=== PATIENT | female | born 1945 | race Caucasian/White ===

== ENCOUNTER 2017-04-25 07:59 | Emergency (ER) | payer MEDICARE, BC ==
[2011-10-17 09:16] VITALS: BMI 42.2
[2017-04-25 08:43] LABS: BASOPHILS 0.3 % (0-2); EOSINOPHILS 0.5 % (0-7); HEMOGLOBIN 12.7 g/dL (12-16); IMMATURE GRANULOCYTES 0.3 % (0-5); LYMPHOCYTES 10.8 % (15-50); MCH 31.4 pg (26.0-34.0); MCHC 31.8 g/dL (31.0-37.0); MEAN PLATELET VOLUME 12.4 fL (7.4-10.4); MONOCYTES 15.6 % (2-11); NEUTROPHILS 72.5 % (40-80); PLATELET COUNT 113 10x3/uL (130-400); RBC 4.04 10x6/uL (4.00-5.40); RDW 13.4 % (11.5-14.5)
[2017-04-25 09:01] LABS: ALKALINE PHOSPHATASE 84 U/L (46-116); ALT (SGPT) 22 U/L (10-68); BILIRUBIN - TOTAL 0.58 mg/dL (0.2-1.3); CALC OSMOLALITY 270 mosm/kg (275-300); CALCIUM 8.9 mg/dL (8.5-10.1); CARBON DIOXIDE 32.8 mmol/L (21.0-32.0); CHLORIDE - SERUM 99 mmol/L (98-107); CREATININE - SERUM 0.5 mg/dL (0.6-1.3); GLUCOSE 103 mg/dL (74-106); POTASSIUM - SERUM 3.7 mmol/L (3.5-5.1); SODIUM 135 mmol/L (136-145); UREA NITROGEN 14 mg/dL (7-18); eGFR NON AFRICAN AMERICAN > 90 mL/min (90-120)
[2017-04-25 09:02] LABS: TROPONIN-I < 0.017 ng/mL (0.000-0.060)
== END 2017-04-25 13:34 | disposition home or self-care (01) ==
LOC: D.ER 07:59
PROVIDERS: Emergency Medicine
DX: J44.1 Chronic obstructive pulmonary disease with (acute) exacerbation (principal); F17.200 Nicotine dependence, unspecified, uncomplicated

== ENCOUNTER 2017-05-26 14:52 | Emergency (ER) | payer MEDICARE, BC ==
[2011-10-17 09:16] VITALS: BMI 42.2
[2017-05-26 15:30] LABS: BASOPHILS 0.4 % (0-2); EOSINOPHILS 2.9 % (0-7); HEMATOCRIT 39.2 % (36.0-48.0); HEMOGLOBIN 12.3 g/dL (12-16); IMMATURE GRANULOCYTES 0.2 % (0-5); LYMPHOCYTES 24.8 % (15-50); MCH 31.1 pg (26.0-34.0); MCHC 31.4 g/dL (31.0-37.0); MCV 99.2 fL (80.0-100.0); MEAN PLATELET VOLUME 13.4 fL (7.4-10.4); MONOCYTES 9.4 % (2-11); NEUTROPHILS 62.3 % (40-80); PLATELET COUNT 151 10x3/uL (130-400); RBC 3.95 10x6/uL (4.00-5.40); RDW 14.2 % (11.5-14.5); WBC 5.6 10x3/uL (4.8-10.8)
[2017-05-26 15:33] LABS: APPEARANCE CLEAR (CLEAR); COLOR DK YELLOW (YELLOW); GLUCOSE NEGATIVE (NEGATIVE); KETONE NEGATIVE (NEGATIVE); NITRITE NEGATIVE (NEGATIVE); PROTEIN NEGATIVE (NEGATIVE)
[2017-05-26 15:34] LABS: BILIRUBIN NEGATIVE (NEGATIVE)
[2017-05-26 15:37] LABS: MUCUS <1+ /lpf (NONE SEEN); RED CELLS - URINE 0-5 /hpf (0-5); WHITE CELLS - URINE OCC /hpf (0-5)
[2017-05-26 15:39] LABS: ALBUMIN 2.9 g/dL (3.4-5.0); ALKALINE PHOSPHATASE 85 U/L (46-116); ALT (SGPT) 19 U/L (10-68); BILIRUBIN - TOTAL 0.71 mg/dL (0.2-1.3); CALC OSMOLALITY 277 mosm/kg (275-300); CALCIUM 9.3 mg/dL (8.5-10.1); CARBON DIOXIDE 31.1 mmol/L (21.0-32.0); CHLORIDE - SERUM 100 mmol/L (98-107); CREATININE - SERUM 0.6 mg/dL (0.6-1.3); GLUCOSE 109 mg/dL (74-106); POTASSIUM - SERUM 3.8 mmol/L (3.5-5.1); PROTEIN - SERUM 7.6 g/dL (6.4-8.2); SODIUM 138 mmol/L (136-145); UREA NITROGEN 15 mg/dL (7-18); eGFR NON AFRICAN AMERICAN > 90 mL/min (90-120)
[2017-05-26 15:47] LABS: AMYLASE - SERUM 60 U/L (25-115); LIPASE 101 U/L (73-393)
[2017-05-26 15:51] LABS: TROPONIN-I < 0.017 ng/mL (0.000-0.060)
== END 2017-05-26 17:50 | disposition home or self-care (01) ==
LOC: D.ER 14:52
PROVIDERS: Family Medicine
DX: K57.90 Diverticulosis of intestine, part unspecified, without perforation or abscess without bleeding (principal); K21.9 Gastro-esophageal reflux disease without esophagitis; J44.9 Chronic obstructive pulmonary disease, unspecified; F17.200 Nicotine dependence, unspecified, uncomplicated

== ENCOUNTER 2017-07-02 14:39 | Emergency (ER) | payer MEDICARE, BC ==
[2011-10-17 09:16] VITALS: BMI 42.2
[2017-07-02 17:54] LABS: BASOPHILS 0.4 % (0-2); EOSINOPHILS 1.8 % (0-7); HEMATOCRIT 41.2 % (36.0-48.0); HEMOGLOBIN 13.1 g/dL (12-16); LYMPHOCYTES 25.1 % (15-50); MCH 31.8 pg (26.0-34.0); MCHC 31.8 g/dL (31.0-37.0); MEAN PLATELET VOLUME 13.1 fL (7.4-10.4); MONOCYTES 6.6 % (2-11); NEUTROPHILS 66.1 % (40-80); PLATELET COUNT 152 10x3/uL (130-400); RBC 4.12 10x6/uL (4.00-5.40); RDW 13.9 % (11.5-14.5); WBC 5.4 10x3/uL (4.8-10.8)
[2017-07-02 18:14] LABS: INR 0.92 (0.85-1.17)
[2017-07-02 18:30] LABS: ALBUMIN 3.1 g/dL (3.4-5.0); ALKALINE PHOSPHATASE 87 U/L (46-116); ALT (SGPT) 17 U/L (10-68); BILIRUBIN - TOTAL 0.71 mg/dL (0.2-1.3); CALC OSMOLALITY 259 mosm/kg (275-300); CALCIUM 9.2 mg/dL (8.5-10.1); CARBON DIOXIDE 31.9 mmol/L (21.0-32.0); CHLORIDE - SERUM 106 mmol/L (98-107); CREATININE - SERUM 0.5 mg/dL (0.6-1.3); GLUCOSE 93 mg/dL (74-106); POTASSIUM - SERUM 3.5 mmol/L (3.5-5.1); PROTEIN - SERUM 7.6 g/dL (6.4-8.2); SODIUM 130 mmol/L (136-145); UREA NITROGEN 11 mg/dL (7-18); eGFR NON AFRICAN AMERICAN > 90 mL/min (90-120)
[2017-07-02 18:41] LABS: CREATINE KINASE 54 UL (21-215); MAGNESIUM - SERUM 1.8 mg/dL (1.8-2.4); PRO BNP 328 pg/mL (0-125); TROPONIN-I < 0.017 ng/mL (0.000-0.060)
[2017-07-02 19:40] LABS: APPEARANCE CLEAR (CLEAR); BILIRUBIN NEGATIVE (NEGATIVE); COLOR YELLOW (YELLOW); GLUCOSE NEGATIVE (NEGATIVE); KETONE NEGATIVE (NEGATIVE); NITRITE NEGATIVE (NEGATIVE); PROTEIN NEGATIVE (NEGATIVE); UROBILINOGEN NORMAL (NORMAL)
== END 2017-07-02 21:21 | disposition home or self-care (01) ==
LOC: D.ER 14:39
PROVIDERS: Nurse Practitioner Family
DX: B34.9 Viral infection, unspecified (principal); J11.1 Influenza due to unidentified influenza virus with other respiratory manifestations; K21.9 Gastro-esophageal reflux disease without esophagitis; J44.9 Chronic obstructive pulmonary disease, unspecified

== ENCOUNTER 2017-07-07 19:13 | Emergency (ER) | payer MEDICARE, BC ==
[2011-10-17 09:16] VITALS: BMI 42.2
[2017-07-07 21:02] LABS: BASOPHILS 0.9 % (0-2); EOSINOPHILS 3.4 % (0-7); HEMATOCRIT 41.4 % (36.0-48.0); HEMOGLOBIN 13.1 g/dL (12-16); LYMPHOCYTES 25.9 % (15-50); MCH 31.7 pg (26.0-34.0); MCHC 31.6 g/dL (31.0-37.0); MCV 100.2 fL (80.0-100.0); MEAN PLATELET VOLUME 12.7 fL (7.4-10.4); NEUTROPHILS 61.8 % (40-80); PLATELET COUNT 164 10x3/uL (130-400); RBC 4.13 10x6/uL (4.00-5.40); RDW 13.9 % (11.5-14.5); WBC 5.5 10x3/uL (4.8-10.8)
[2017-07-07 21:17] LABS: ALBUMIN 3.1 g/dL (3.4-5.0); ALKALINE PHOSPHATASE 89 U/L (46-116); ALT (SGPT) 19 U/L (10-68); AMYLASE - SERUM 63 U/L (25-115); BILIRUBIN - TOTAL 0.55 mg/dL (0.2-1.3); CALC OSMOLALITY 276 mosm/kg (275-300); CALCIUM 8.9 mg/dL (8.5-10.1); CARBON DIOXIDE 31.3 mmol/L (21.0-32.0); CHLORIDE - SERUM 102 mmol/L (98-107); CREATININE - SERUM 0.7 mg/dL (0.6-1.3); GLUCOSE 99 mg/dL (74-106); LIPASE 108 U/L (73-393); POTASSIUM - SERUM 4.1 mmol/L (3.5-5.1); PROTEIN - SERUM 7.6 g/dL (6.4-8.2); SODIUM 139 mmol/L (136-145); UREA NITROGEN 9 mg/dL (7-18); eGFR NON AFRICAN AMERICAN 87 mL/min (90-120)
== END 2017-07-07 22:15 | disposition home or self-care (01) ==
LOC: D.ER 19:13
PROVIDERS: Family Medicine
DX: R10.9 Unspecified abdominal pain (principal); R14.0 Abdominal distension (gaseous); R14.2 Eructation; K59.00 Constipation, unspecified; J44.9 Chronic obstructive pulmonary disease, unspecified; F17.200 Nicotine dependence, unspecified, uncomplicated; K21.9 Gastro-esophageal reflux disease without esophagitis

== ENCOUNTER 2017-07-12 22:46 | Inpatient (IN) | payer MEDICARE, BC ==
[~2017-07-12] VITALS: Ht 160 cm; Wt 90.7 kg
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
[2017-07-12 23:57] LABS: BASOPHILS 0.8 % (0-2); EOSINOPHILS 3.1 % (0-7); HEMATOCRIT 40.1 % (36.0-48.0); IMMATURE GRANULOCYTES 0.3 % (0-5); MCHC 32.4 g/dL (31.0-37.0); MCV 98.8 fL (80.0-100.0); MEAN PLATELET VOLUME 13.5 fL (7.4-10.4); MONOCYTES 8.8 % (2-11); PLATELET COUNT 104 10x3/uL (130-400); RBC 4.06 10x6/uL (4.00-5.40); RDW 13.6 % (11.5-14.5); WBC 6.1 10x3/uL (4.8-10.8)
[2017-07-13 00:05] LABS: APPEARANCE CLEAR (CLEAR); BILIRUBIN NEGATIVE (NEGATIVE); COLOR YELLOW (YELLOW); GLUCOSE NEGATIVE (NEGATIVE); KETONE NEGATIVE (NEGATIVE); NITRITE NEGATIVE (NEGATIVE); PROTEIN NEGATIVE (NEGATIVE); UROBILINOGEN NORMAL (NORMAL)
[2017-07-13 00:07] LABS: APTT 24.8 SECONDS (22.8-39.4); INR 0.95 (0.85-1.17); PROTIME 12.3 SECONDS (11.6-15.0)
[2017-07-13 00:08] LABS: D-DIMER-QUANTITATIVE 2.76 ug/mLFEU (0.20-0.54)
[2017-07-13 00:20] LABS: ALKALINE PHOSPHATASE 78 U/L (46-116); ALT (SGPT) 20 U/L (10-68); CALC OSMOLALITY 278 mosm/kg (275-300); CARBON DIOXIDE 29.8 mmol/L (21.0-32.0); CHLORIDE - SERUM 102 mmol/L (98-107); CREATININE - SERUM 0.4 mg/dL (0.6-1.3); GLUCOSE 98 mg/dL (74-106); POTASSIUM - SERUM 4.2 mmol/L (3.5-5.1); PROTEIN - SERUM 6.7 g/dL (6.4-8.2); SODIUM 140 mmol/L (136-145); UREA NITROGEN 12 mg/dL (7-18); eGFR NON AFRICAN AMERICAN > 90 mL/min (90-120)
[2017-07-13 00:22] LABS: AMYLASE - SERUM 54 U/L (25-115); CKMB 0.8 U/L (0.0-3.6); CREATINE KINASE 99 UL (21-215); LIPASE 96 U/L (73-393); PRO BNP 316 pg/mL (0-125); TROPONIN-I 0.021 ng/mL (0.000-0.060)
[2017-07-13 03:49] LABS: CKMB 1.1 U/L (0.0-3.6); CREATINE KINASE 103 UL (21-215); TROPONIN-I 0.022 ng/mL (0.000-0.060)
[2017-07-13 04:16] VITALS: BP 154/68; BMI 35.5
[2017-07-13 08:43] VITALS: BP 155/60
[2017-07-13 09:30] LABS: HELICOBACTER PYLORI IGG NEGATIVE (NEGATIVE)
[2017-07-13 09:47] LABS: CKMB 1.2 U/L (0.0-3.6); CREATINE KINASE 78 UL (21-215); TROPONIN-I 0.028 ng/mL (0.000-0.060)
[2017-07-13] MEDS ORDERED: FUROSEMIDE40 MG PO (10:24)
[2017-07-13] MEDS ORDERED: OMEPRAZOLE40 MG PO (10:25)
[2017-07-13] MEDS ORDERED: K-TAB10 MEQ PO (10:25)
[2017-07-13] MEDS ORDERED: PROAIR HFA8.5 GM INH (10:26)
[2017-07-13] MEDS ORDERED: MIRALAX527 GM PO (10:26)
[2017-07-13] MEDS ORDERED: CITRACAL + D E1 EACH PO (10:26)
[2017-07-13] MEDS ORDERED: CRANBERRY 400 M1 TA1 PO (10:27)
[2017-07-13] MEDS ORDERED: MULTIPLE VITAMI1 TA1 PO (10:27)
[2017-07-13] MEDS ORDERED: PROBIOTIC250 MG PO (10:27)
[2017-07-13] MEDS ORDERED: BAYER ASPIRIN325 MG PO (10:28)
[2017-07-13] MEDS ORDERED: CALCIUM 500 + D1 TAB PO (10:28)
[2017-07-13] MEDS ORDERED: STOOL SOFTENER100 M1 PO (10:28)
[2017-07-13 12:46] VITALS: BP 151/83
[2017-07-13 13:58] VITALS: Ht 160 cm; Wt 90.7 kg
[2017-07-13 15:42] LABS: CREATINE KINASE 69 UL (21-215)
[2017-07-13 15:45] LABS: TROPONIN-I < 0.017 ng/mL (0.000-0.060)
[2017-07-13 16:26] VITALS: BP 126/45; BP 151/83
[2017-07-13 20:00] VITALS: BP 123/36
[2017-07-14 04:00] VITALS: BP 136/52
[2017-07-14 04:54] LABS: BASOPHILS 0 % (0-2); EOSINOPHILS 0 % (0-7); HEMATOCRIT 37.9 % (36.0-48.0); HEMOGLOBIN 11.8 g/dL (12-16); LYMPHOCYTES 11.6 % (15-50); MCH 30.8 pg (26.0-34.0); MCHC 31.1 g/dL (31.0-37.0); MEAN PLATELET VOLUME 14.1 fL (7.4-10.4); MONOCYTES 1.5 % (2-11); NEUTROPHILS 86.9 % (40-80); PLATELET COUNT 121 10x3/uL (130-400); RBC 3.83 10x6/uL (4.00-5.40); RDW 13.9 % (11.5-14.5)
[2017-07-14 04:55] LABS: WBC 3.3 10x3/uL (4.8-10.8)
[2017-07-14 05:13] LABS: ALBUMIN 2.7 g/dL (3.4-5.0); ALKALINE PHOSPHATASE 72 U/L (46-116); ALT (SGPT) 16 U/L (10-68); BILIRUBIN - TOTAL 0.64 mg/dL (0.2-1.3); CALCIUM 8.7 mg/dL (8.5-10.1); CARBON DIOXIDE 31.4 mmol/L (21.0-32.0); CHLORIDE - SERUM 104 mmol/L (98-107); CHOL - HDL RATIO 2.1 ratio (2.3-4.1); CHOLESTEROL, TOTAL 206 mg/dL (0-200); GLUCOSE 140 mg/dL (74-106); HDL CHOLESTEROL 99 mg/dL (32-96); LDL CHOLESTEROL 103 mg/dL (0-100); POTASSIUM - SERUM 4.4 mmol/L (3.5-5.1); PROTEIN - SERUM 6.6 g/dL (6.4-8.2); SODIUM 139 mmol/L (136-145); TRIGLYCERIDE 20 mg/dL (30-200)
[2017-07-14 05:15] LABS: CALC OSMOLALITY 282 mosm/kg (275-300); CREATININE - SERUM 0.6 mg/dL (0.6-1.3); UREA NITROGEN 21 mg/dL (7-18); eGFR NON AFRICAN AMERICAN > 90 mL/min (90-120)
[2017-07-14 10:51] VITALS: BP 138/51
[2017-07-14 15:10] VITALS: BP 155/52
[2017-07-14 21:57] VITALS: BP 154/62
[2017-07-15 00:57] VITALS: BP 146/56
[2017-07-15 06:45] LABS: BASOPHILS 0 % (0-2); EOSINOPHILS 0 % (0-7); HEMATOCRIT 36.7 % (36.0-48.0); HEMOGLOBIN 11.7 g/dL (12-16); IMMATURE GRANULOCYTES 0.2 % (0-5); LYMPHOCYTES 6.7 % (15-50); MCH 31.2 pg (26.0-34.0); MCHC 31.9 g/dL (31.0-37.0); MCV 97.9 fL (80.0-100.0); MEAN PLATELET VOLUME 13.9 fL (7.4-10.4); MONOCYTES 2.4 % (2-11); NEUTROPHILS 90.7 % (40-80); PLATELET COUNT 122 10x3/uL (130-400); RBC 3.75 10x6/uL (4.00-5.40); RDW 13.9 % (11.5-14.5); WBC 5.4 10x3/uL (4.8-10.8)
[2017-07-15 07:00] LABS: CALC OSMOLALITY 278 mosm/kg (275-300); CALCIUM 8.4 mg/dL (8.5-10.1); CARBON DIOXIDE 28.4 mmol/L (21.0-32.0); CHLORIDE - SERUM 103 mmol/L (98-107); CREATININE - SERUM 0.6 mg/dL (0.6-1.3); GLUCOSE 142 mg/dL (74-106); SODIUM 137 mmol/L (136-145); UREA NITROGEN 21 mg/dL (7-18); eGFR NON AFRICAN AMERICAN > 90 mL/min (90-120)
[2017-07-15 09:00] VITALS: BP 141/61
[2017-07-15 13:13] VITALS: BP 141/53
[2017-07-15 16:58] VITALS: BP 97/49
[2017-07-15 23:07] VITALS: BP 143/45
[2017-07-16 05:06] VITALS: BP 138/78
[2017-07-16 08:18] VITALS: BP 144/53
[2017-07-16 13:20] VITALS: BP 100/59; BP 139/54
[2017-07-16 16:47] VITALS: BP 142/61
[2017-07-16 20:00] VITALS: BP 114/57
[2017-07-17 04:00] VITALS: BP 144/64
[2017-07-17 08:39] VITALS: BP 107/71
[2017-07-17 13:36] VITALS: BP 146/58
[2017-07-17 16:07] VITALS: BP 109/67
[2017-07-17 20:00] VITALS: BP 140/52
[2017-07-18 04:00] VITALS: BP 139/55
[2017-07-18 09:11] VITALS: BP 106/78
[2017-07-18 12:46] VITALS: BP 153/55
[2017-07-18 16:46] VITALS: BP 165/63
[2017-07-18 20:00] VITALS: BP 147/62
[2017-07-19] VITALS: BP 141/61
[2017-07-19 04:00] VITALS: BP 167/70
[2017-07-19 08:43] LABS: BASOPHILS 0 % (0-2); EOSINOPHILS 0 % (0-7); HEMATOCRIT 42.2 % (36.0-48.0); HEMOGLOBIN 13.5 g/dL (12-16); IMMATURE GRANULOCYTES 0.2 % (0-5); LYMPHOCYTES 6.9 % (15-50); MCH 31.5 pg (26.0-34.0); MCV 98.4 fL (80.0-100.0); MEAN PLATELET VOLUME 12.9 fL (7.4-10.4); MONOCYTES 4.2 % (2-11); NEUTROPHILS 88.7 % (40-80); PLATELET COUNT 134 10x3/uL (130-400); RBC 4.29 10x6/uL (4.00-5.40); RDW 13.6 % (11.5-14.5); WBC 6.2 10x3/uL (4.8-10.8)
[2017-07-19 08:44] LABS: CALC OSMOLALITY 273 mosm/kg (275-300); CHLORIDE - SERUM 101 mmol/L (98-107); CREATININE - SERUM 0.7 mg/dL (0.6-1.3); GLUCOSE 118 mg/dL (74-106); POTASSIUM - SERUM 4.1 mmol/L (3.5-5.1); SODIUM 136 mmol/L (136-145); UREA NITROGEN 16 mg/dL (7-18); eGFR NON AFRICAN AMERICAN 87 mL/min (90-120)
[2017-07-19 08:48] VITALS: BP 173/119
[2017-07-19 10:13] VITALS: BMI 35.4
[2017-07-19 12:13] VITALS: BP 163/55
[2017-07-19 16:12] VITALS: BP 139/55
[2017-07-19 20:00] VITALS: BP 144/57
[2017-07-20] VITALS: BP 126/71
[2017-07-20 04:00] VITALS: BP 150/53
[2017-07-20 08:09] VITALS: BP 144/63
[2017-07-20 12:52] VITALS: BP 142/71
[2017-07-20 16:55] VITALS: BP 146/86
[2017-07-20 22:49] VITALS: BP 171/68
[2017-07-21 02:50] VITALS: BP 141/47
[2017-07-21 05:54] VITALS: BP 135/43
[2017-07-21 07:06] VITALS: BP 115/62
[2017-07-21 11:02] VITALS: BP 135/94
[2017-07-21] MEDS ORDERED: IPRAT-ALBUT 0.5-3 ML INH (11:53)
[2017-07-21] MEDS ORDERED: COREG 3.1253.125 MG PO (11:54)
[2017-07-21] MEDS ORDERED: SINGULAIR10 MG PO (11:54)
[2017-07-21] MEDS ORDERED: FLAGYL500 MG PO (11:56)
[2017-07-21] MEDS ORDERED: STERAPRED DS 1210 MG PO (11:58)
[2017-07-21] MEDS ORDERED: DIFLUCAN100 MG PO (11:59)
[2017-07-21] MEDS ORDERED: BREO ELLIPTA 21 EACH IH (12:05)
[2017-07-21 15:13] VITALS: BP 103/58
== END 2017-07-21 19:42 | disposition home or self-care (01) | DRG 192 ==
LOC: D.ER 22:46 → D.MS 07-13 03:38
PROVIDERS: Family Medicine
DX: J44.1 Chronic obstructive pulmonary disease with (acute) exacerbation (principal); K21.9 Gastro-esophageal reflux disease without esophagitis; K57.30 Diverticulosis of large intestine without perforation or abscess without bleeding; K59.00 Constipation, unspecified; M19.90 Unspecified osteoarthritis, unspecified site; Z88.1 Allergy status to other antibiotic agents; F17.200 Nicotine dependence, unspecified, uncomplicated

== ENCOUNTER 2017-08-31 01:37 | Inpatient (IN) | payer MEDICARE, BC ==
[~2017-08-31] VITALS: Ht 160 cm; Wt 88.5 kg
[2017-08-31] VITALS (7 sets, daily range): BP systolic 120–152; BP diastolic 44–88; Ht 160 cm; Wt 88.5 kg
--- NOTE | ~2017-08-31 | EC ---
PATIENT:RON ALBERTO DATE OF SERVICE: 08/31/17 SEX: F MEDICAL RECORD: [id number] DATE OF : 41 LOCATION:D.MS [place] AGE OF PATIENT: 71 ADMISSION DATE: 08/31/17 REFERRING PHYSICIAN: INTERPRETING PHYSICIAN: FELIPA SPENCER MD ECHOCARDIOGRAM REPORT ECHO CHARGES 4 ECHO COMPLETE Date: 09/01 CLINICAL DIAGNOSIS: CHF ECHOCARDIOGRAPHIC MEASUREMENTS (adult normal given) AC root (d.<3.7cm) 3.7 cm LV Septum d (<1.2 cm> 1.6 cm Valve Excursion 1.8 cm LV Septum (systole) 1.9 cm Left Atria (s.<4.0cm> 3.4 cm LVPW d(<1.2cm) 1.4 cm RV (d.<2.3cm) 4.9 cm LVPW (sytole) 1.9 cm LV diastole(<5.6CM) 5.7 cm MV E-F(>70mm/sec) cm LV systole 3.7 cm LVOT Diameter 2.2 cm MV exc.(>10mm) 1.4 cm Est.ejection fraction (50-75%) % DOPPLER: LVIT cm/sec A 105 cm/sec E 96.0 cm/sec LA cm/sec RVSP 34 mmHg LVOT 121 cm/sec AOP1/2T m/s Asc. Ao 159 cm/sec RVOT cm/sec RA cm/sec PA cm/sec AV Gradient Peak 10.06mmHg AV Mean 4.58 mmHg AV Area 3.0 cm MV Gradient Peak 4.37 mmHg MV Mean 2.34 mmHg MV Area cm COMMENTS: Slot Shift Manager: 2 NIC SHEA Associate: 4 Dr. Spencer TAPE# PACS Pericardial Effusion N DATE OF SERVICE: PROCEDURE: Transthoracic echocardiogram. FINDINGS: 1. Left ventricle has normal function, ejection fraction 60%. Mild left ventricular hypertrophy. Inflow characteristics consistent with diastolic dysfunction. 2. The left atrium is normal size, normal function. 3. The aortic valve is normal structure and function. ECHOCARDIOGRAM REPORT [id number] RON ALBERTO 4. The mitral valve is normal structure and function. 5. The tricuspid valve is normal structure and function. RVSP is mildly elevated at 30-35 mmHg. 6. The pericardium was normal. 7. The right ventricle is moderately dilated. 8. The right atrium is moderately dilated. 9. The pulmonic valve not well visualized, but by Doppler is normal. CONCLUSION: This is a normal echocardiogram for patient stated age. There is mild elevation in right ventricular systolic pressure. There is mild dilatation of right-sided structures. There is mild left ventricular hypertrophy. TRANSINT:[id number] Voice Confirmation ID: [id number] DOCUMENT ID: [id number] FELIPA SPENCER MD at 0942 CC: [id number] DICTATION DATE: 09/02/17 0727 AIRFIELD ENGINEER OFFICER: 09/02/17 0918 DIS IN 09/05/17 [facility] [address] [place] [address]
[~2017-08-31 01:37] MED LIST: BAYER ASPIRIN325 MG PO; BREO ELLIPTA 21 EACH IH; CALCIUM 500 + D1 TAB PO; CITRACAL + D E1 EACH PO; COREG 3.1253.125 MG PO; CRANBERRY 400 M1 TA1 PO; DIFLUCAN100 MG PO; FLAGYL500 MG PO; FUROSEMIDE40 MG PO; IPRAT-ALBUT 0.5-3 ML INH; K-TAB10 MEQ PO; MIRALAX527 GM PO; MULTIPLE VITAMI1 TA1 PO; OMEPRAZOLE40 MG PO; PROAIR HFA8.5 GM INH; PROBIOTIC250 MG PO; SINGULAIR10 MG PO; STERAPRED DS 1210 MG PO; STOOL SOFTENER100 M1 PO
[2017-08-31 02:20] LABS: BASOPHILS 0.4 % (0-2); EOSINOPHILS 1.1 % (0-7); HEMOGLOBIN 12.9 g/dL (12-16); IMMATURE GRANULOCYTES 0.2 % (0-5); LYMPHOCYTES 29.1 % (15-50); MCH 31.7 pg (26.0-34.0); MCHC 32.3 g/dL (31.0-37.0); MCV 98.3 fL (80.0-100.0); MEAN PLATELET VOLUME 12.9 fL (7.4-10.4); MONOCYTES 6.3 % (2-11); NEUTROPHILS 62.9 % (40-80); RBC 4.07 10x6/uL (4.00-5.40); RDW 13.7 % (11.5-14.5); WBC 5.5 10x3/uL (4.8-10.8)
[2017-08-31 02:21] LABS: PLATELET COUNT 103 10x3/uL (130-400)
[2017-08-31 02:33] LABS: ALBUMIN 2.8 g/dL (3.4-5.0); ALKALINE PHOSPHATASE 79 U/L (46-116); ALT (SGPT) 17 U/L (10-68); BILIRUBIN - TOTAL 0.49 mg/dL (0.2-1.3); CALC OSMOLALITY 281 mosm/kg (275-300); CALCIUM 8.5 mg/dL (8.5-10.1); CHLORIDE - SERUM 102 mmol/L (98-107); CREATININE - SERUM 0.6 mg/dL (0.6-1.3); GLUCOSE 108 mg/dL (74-106); POTASSIUM - SERUM 3.7 mmol/L (3.5-5.1); PROTEIN - SERUM 6.8 g/dL (6.4-8.2); SODIUM 140 mmol/L (136-145); UREA NITROGEN 17 mg/dL (7-18); eGFR NON AFRICAN AMERICAN > 90 mL/min (90-120)
[2017-08-31 02:46] LABS: CREATINE KINASE 56 UL (21-215); MAGNESIUM - SERUM 1.8 mg/dL (1.8-2.4); PRO BNP 312 pg/mL (0-125); TROPONIN-I 0.023 ng/mL (0.000-0.060)
[2017-08-31] MEDS ORDERED: FIBER THERAPY1368 GM PO (04:34)
[2017-09-01 04:29] VITALS: BP 125/51
[2017-09-01 05:05] LABS: BASOPHILS 0 % (0-2); EOSINOPHILS 0 % (0-7); HEMATOCRIT 35.4 % (36.0-48.0); HEMOGLOBIN 11.3 g/dL (12-16); LYMPHOCYTES 14.1 % (15-50); MCH 31.2 pg (26.0-34.0); MCHC 31.9 g/dL (31.0-37.0); MCV 97.8 fL (80.0-100.0); MEAN PLATELET VOLUME 13.7 fL (7.4-10.4); MONOCYTES 1.4 % (2-11); NEUTROPHILS 84.5 % (40-80); PLATELET COUNT 103 10x3/uL (130-400); RBC 3.62 10x6/uL (4.00-5.40); RDW 13.9 % (11.5-14.5)
[2017-09-01 05:16] LABS: CALC OSMOLALITY 282 mosm/kg (275-300); CALCIUM 8.1 mg/dL (8.5-10.1); CHLORIDE - SERUM 103 mmol/L (98-107); CREATININE - SERUM 0.5 mg/dL (0.6-1.3); GLUCOSE 149 mg/dL (74-106); PHOSPHOROUS 3.9 mg/dL (2.5-4.9); SODIUM 139 mmol/L (136-145); UREA NITROGEN 19 mg/dL (7-18); WBC 3.5 10x3/uL (4.8-10.8); eGFR NON AFRICAN AMERICAN > 90 mL/min (90-120)
[2017-09-01 08:40] VITALS: BP 108/81
[2017-09-01 12:36] VITALS: BP 133/67
[2017-09-01 16:56] VITALS: BP 126/55
[2017-09-01 20:27] VITALS: BP 141/89
[2017-09-02 00:22] VITALS: BP 128/50
[2017-09-02 06:43] LABS: BASOPHILS 0 % (0-2); EOSINOPHILS 0 % (0-7); HEMOGLOBIN 11.2 g/dL (12-16); IMMATURE GRANULOCYTES 0.2 % (0-5); LYMPHOCYTES 12.7 % (15-50); MCH 30.6 pg (26.0-34.0); MCHC 31.1 g/dL (31.0-37.0); MCV 98.4 fL (80.0-100.0); MEAN PLATELET VOLUME 13.9 fL (7.4-10.4); MONOCYTES 3.3 % (2-11); NEUTROPHILS 83.8 % (40-80); PLATELET COUNT 120 10x3/uL (130-400); RBC 3.66 10x6/uL (4.00-5.40)
[2017-09-02 06:45] LABS: WBC 4.5 10x3/uL (4.8-10.8)
[2017-09-02 06:56] LABS: CALC OSMOLALITY 283 mosm/kg (275-300); CALCIUM 7.9 mg/dL (8.5-10.1); CARBON DIOXIDE 34.7 mmol/L (21.0-32.0); CHLORIDE - SERUM 102 mmol/L (98-107); CREATININE - SERUM 0.6 mg/dL (0.6-1.3); GLUCOSE 132 mg/dL (74-106); POTASSIUM - SERUM 4.3 mmol/L (3.5-5.1); SODIUM 140 mmol/L (136-145); UREA NITROGEN 20 mg/dL (7-18); eGFR NON AFRICAN AMERICAN > 90 mL/min (90-120)
[2017-09-02 08:26] VITALS: BP 136/58
[2017-09-02 12:00] VITALS: BP 101/47
[2017-09-02 16:14] VITALS: BP 121/51
[2017-09-02 21:12] VITALS: BP 133/52
[2017-09-03 05:13] LABS: BASOPHILS 0 % (0-2); EOSINOPHILS 0 % (0-7); HEMATOCRIT 37.4 % (36.0-48.0); HEMOGLOBIN 11.9 g/dL (12-16); LYMPHOCYTES 13.2 % (15-50); MCH 31.3 pg (26.0-34.0); MCHC 31.8 g/dL (31.0-37.0); MCV 98.4 fL (80.0-100.0); MEAN PLATELET VOLUME 13.1 fL (7.4-10.4); MONOCYTES 4.1 % (2-11); NEUTROPHILS 82.7 % (40-80); PLATELET COUNT 133 10x3/uL (130-400); WBC 4.9 10x3/uL (4.8-10.8)
[2017-09-03 05:38] LABS: CALC OSMOLALITY 281 mosm/kg (275-300); CALCIUM 8.2 mg/dL (8.5-10.1); CARBON DIOXIDE 31.5 mmol/L (21.0-32.0); CHLORIDE - SERUM 101 mmol/L (98-107); CREATININE - SERUM 0.6 mg/dL (0.6-1.3); GLUCOSE 122 mg/dL (74-106); POTASSIUM - SERUM 4.2 mmol/L (3.5-5.1); SODIUM 139 mmol/L (136-145); UREA NITROGEN 22 mg/dL (7-18); eGFR NON AFRICAN AMERICAN > 90 mL/min (90-120)
[2017-09-03 08:38] VITALS: BP 129/48
[2017-09-03 12:23] VITALS: BP 119/50
[2017-09-03 14:44] LABS: IMMUNOGLOBULIN A 367 mg/dL (64-422); IMMUNOGLOBULIN G 808 mg/dL (700-1600)
[2017-09-03 20:29] VITALS: BP 114/57
[2017-09-04 04:14] VITALS: BP 138/57
[2017-09-04 06:02] LABS: BASOPHILS 0 % (0-2); EOSINOPHILS 0 % (0-7); HEMATOCRIT 35.1 % (36.0-48.0); HEMOGLOBIN 11.1 g/dL (12-16); IMMATURE GRANULOCYTES 0.2 % (0-5); LYMPHOCYTES 16.2 % (15-50); MCH 30.8 pg (26.0-34.0); MCHC 31.6 g/dL (31.0-37.0); MCV 97.5 fL (80.0-100.0); MEAN PLATELET VOLUME 13.7 fL (7.4-10.4); MONOCYTES 6.2 % (2-11); NEUTROPHILS 77.4 % (40-80); PLATELET COUNT 135 10x3/uL (130-400); RDW 13.8 % (11.5-14.5); WBC 5.2 10x3/uL (4.8-10.8)
[2017-09-04 06:41] LABS: CALC OSMOLALITY 284 mosm/kg (275-300); CARBON DIOXIDE 31.6 mmol/L (21.0-32.0); CHLORIDE - SERUM 101 mmol/L (98-107); CREATININE - SERUM 0.7 mg/dL (0.6-1.3); GLUCOSE 119 mg/dL (74-106); SODIUM 139 mmol/L (136-145); eGFR NON AFRICAN AMERICAN 87 mL/min (90-120)
[2017-09-04 06:43] LABS: UREA NITROGEN 29 mg/dL (7-18)
[2017-09-04 08:32] VITALS: BP 125/95
[2017-09-04 11:44] VITALS: BP 101/56
[2017-09-04 15:17] VITALS: BP 99/45
[2017-09-04 21:33] VITALS: BP 136/45
[2017-09-05 00:25] VITALS: BP 126/54
[2017-09-05 04:21] VITALS: BP 138/54
[2017-09-05 05:29] LABS: BASOPHILS 0 % (0-2); EOSINOPHILS 0.8 % (0-7); HEMATOCRIT 34.7 % (36.0-48.0); IMMATURE GRANULOCYTES 0.2 % (0-5); LYMPHOCYTES 32.6 % (15-50); MCH 31.1 pg (26.0-34.0); MCHC 31.7 g/dL (31.0-37.0); NEUTROPHILS 56.4 % (40-80); PLATELET COUNT 129 10x3/uL (130-400); RBC 3.54 10x6/uL (4.00-5.40); RDW 13.8 % (11.5-14.5); WBC 6.1 10x3/uL (4.8-10.8)
[2017-09-05 05:45] LABS: CALC OSMOLALITY 281 mosm/kg (275-300); CALCIUM 8.2 mg/dL (8.5-10.1); CARBON DIOXIDE 32.1 mmol/L (21.0-32.0); CHLORIDE - SERUM 101 mmol/L (98-107); CREATININE - SERUM 0.6 mg/dL (0.6-1.3); GLUCOSE 83 mg/dL (74-106); POTASSIUM - SERUM 3.7 mmol/L (3.5-5.1); SODIUM 139 mmol/L (136-145); UREA NITROGEN 27 mg/dL (7-18); eGFR NON AFRICAN AMERICAN > 90 mL/min (90-120)
[2017-09-05 08:37] VITALS: BP 121/44
[2017-09-05] MEDS ORDERED: NYSTATIN ORAL SU5 ML PO (11:45)
[2017-09-05] MEDS ORDERED: ZITHROMAX250 MG PO (11:45)
[2017-09-05] MEDS ORDERED: PULMICORT0.5 MG/21 UPD (11:46)
[2017-09-05] MEDS ORDERED: DALIRESP500 MCG PO (11:46)
[2017-09-05] MEDS ORDERED: TESSALON PERLE100 MG PO (11:46)
[2017-09-05] MEDS ORDERED: NICODERM C1 PATCH .1 TRANSDERM (11:46)
[2017-09-05] MEDS ORDERED: FLUTICASONE PRO16 GM NASAL (11:47)
[2017-09-05] MEDS ORDERED: PREDNISONE10 MG PO (11:48)
[2017-09-05 12:01] VITALS: BP 130/45
[2017-09-07 06:17] LABS: IMMUNOGLOBULIN E 158 IU/mL (0-100)
== END 2017-09-05 16:07 | disposition home or self-care (01) | DRG 193 ==
LOC: D.ER 01:37 → D.MS 03:37
PROVIDERS: Emergency Medicine; Internal Medicine Nephrology; Internal Medicine Pulmonary Disease
DX: J18.1 Lobar pneumonia, unspecified organism (principal); J96.21 Acute and chronic respiratory failure with hypoxia; J44.0 Chronic obstructive pulmonary disease with (acute) lower respiratory infection; J44.1 Chronic obstructive pulmonary disease with (acute) exacerbation; I50.20 Unspecified systolic (congestive) heart failure; I50.30 Unspecified diastolic (congestive) heart failure; J44.9 Chronic obstructive pulmonary disease, unspecified; K57.90 Diverticulosis of intestine, part unspecified, without perforation or abscess without bleeding; K59.00 Constipation, unspecified; Z99.81 Dependence on supplemental oxygen; J30.9 Allergic rhinitis, unspecified; D69.6 Thrombocytopenia, unspecified

== ENCOUNTER 2017-10-28 14:53 | Emergency (ER) | payer MEDICARE, BC ==
[~2017-10-28] VITALS: Ht 160 cm; Wt 90.0 kg
[~2017-10-28 14:53] MED LIST changes: +DALIRESP500 MCG PO; +FIBER THERAPY1368 GM PO; +FLUTICASONE PRO16 GM NASAL; +NICODERM C1 PATCH .1 TRANSDERM; +NYSTATIN ORAL SU5 ML PO; +PREDNISONE10 MG PO; +PULMICORT0.5 MG/21 UPD; +TESSALON PERLE100 MG PO; +ZITHROMAX250 MG PO
[2017-10-28 15:00] VITALS: Ht 160 cm; Wt 90.0 kg
[2017-10-28] MEDS ORDERED: ULTRAM50 MG PO (16:53)
[2017-10-28 17:45] VITALS: BP 136/70
== END 2017-10-28 17:45 | disposition home or self-care (01) ==
LOC: D.ER 14:53
DX: S83.91XA Sprain of unspecified site of right knee, initial encounter (principal); W01.0XXA Fall on same level from slipping, tripping and stumbling without subsequent striking against object, initial encounter; Y93.89 Activity, other specified; Y92.239 Unspecified place in hospital as the place of occurrence of the external cause; S80.02XA Contusion of left knee, initial encounter

== ENCOUNTER → 2018-03-04 13:43 | Outpatient (CLI) | payer MEDICARE, BC ==
[2017-10-28 15:00] VITALS: BMI 35.1
[~2018-03-04 13:43] MED LIST changes: +ULTRAM50 MG PO
== END | disposition home or self-care (01) ==
LOC: D.RT 01-07 09:00 → D.RAD 01-07 10:00 → D.RT 01-22 14:00 → D.RAD 01-22 14:45 → D.RT 13:43
DX: I50.32 Chronic diastolic (congestive) heart failure (principal); J44.9 Chronic obstructive pulmonary disease, unspecified

== ENCOUNTER 2018-03-28 05:37 | Emergency (ER) | payer MEDICARE, BC ==
[~2018-03-28] VITALS: Ht 160 cm; Wt 90.0 kg
[2018-03-28 05:43] VITALS: Ht 160 cm; Wt 90.0 kg
[2018-03-28] MEDS ORDERED: ULTRAM50 MG PO (06:26)
[2018-03-28 06:32] VITALS: BP 152/61
== END 2018-03-28 06:32 | disposition home or self-care (01) ==
LOC: D.ER 05:37
DX: M67.432 Ganglion, left wrist (principal); Z86.73 Personal history of transient ischemic attack (TIA), and cerebral infarction without residual deficits; J44.9 Chronic obstructive pulmonary disease, unspecified; F17.200 Nicotine dependence, unspecified, uncomplicated

== ENCOUNTER 2018-05-26 09:28 | Inpatient (IN) | payer MEDICARE, BC ==
[~2018-05-26] VITALS: Ht 160 cm; Wt 83.9 kg
--- NOTE | ~2018-05-26 | CN ---
PATIENT NAME:RON CHOE MEDICAL RECORD: [id number] : 41 LOCATION:D.MS [facility]2229 ADMIT DATE: 05/26/18 ACCOUNT: [id number] CONSULTING PHYSICIAN: NILDA SANTOS MD REFERRING PHYSICIAN: KIM MONTANO MD DATE OF CONSULTATION: 05/27/2018 CONSULT REQUESTING PHYSICIAN: Jose Antonio Jensen DO REASON FOR CONSULTATION: Pneumonia, bilateral lower lobes. HISTORY OF PRESENT ILLNESS: Ms. Choe is a 72-year-old female who came into the ER with abdominal pain. She had a chest radiograph which showed pneumonia in lower lobe. She is also coughing, which is productive of blood-tinged sputum. She denies any chest pain. She was not feeling any fever and chills. No night sweats. REVIEW OF THE SYSTEMS: As in history of present illness. PAST MEDICAL HISTORY: 1. COPD. 2. Asthma. 3. Gastroesophageal reflux disease. 4. Hypertension. 5. Diverticular disease. PAST SURGICAL HISTORY: 1. Cholecystectomy. 2. Appendectomy. 3. Hysterectomy. 4. Left hand surgery. ALLERGIES: SHE IS ALLERGIC TO CEFTRIAXONE AND CODEINE. MEDICATIONS: Apixio was reviewed. PERSONAL AND SOCIAL HISTORY: The patient is smoker. She is nondrinker. FAMILY HISTORY: Noncontributory. PHYSICAL EXAMINATION: GENERAL: Now, the patient is lying comfortably in bed. She is not in acute distress. VITAL SIGNS: The blood pressure is 102/84, pulse is 61, respiratory rate is 16, temperature is 98.2, and SpO2 is 94% on 2 liters nasal cannula. HEENT: Conjunctivae are pink. Sclerae are not icteric. NECK: Neck is supple. No JVD. CHEST: The chest excursion is minimal on both sides. There are bibasilar crackles and wheeze on forceful expiration. HEART: Rhythm regular. Normal sound. No murmur. ABDOMEN: Abdomen is soft. Bowel sounds present. No hepatosplenomegaly. RECTAL: Deferred. EXTREMITIES: No cyanosis. No clubbing. No pedal edema. CENTRAL NERVOUS SYSTEM: The patient is awake and alert. There is no obvious cranial nerve abnormality. The gait was not tested. CONSULT REPORT [id number] RON CHOE DIAGNOSTIC DATA: Chest radiograph; there is bibasilar infiltrate. LABORATORY DATA: CBC; the WBC is 5.3, hemoglobin 12.9, hematocrit 39.8, and platelet 184. Chemistry; sodium 140, potassium is 4.3, BUN is 5, and creatinine is 0.6. IMPRESSION: 1. Acute exacerbation of COPD. 2. Bilateral lower lobe pneumonia. 3. Hemoptysis secondary to pneumonia. 4. Acute diverticulitis. 5. Gastroesophageal reflux disease. RECOMMENDATION: 1. Continue Levaquin. I will add doxycycline. 2. Start methylprednisolone IV. Start on Brovana and budesonide nebulizer. 3. Albuterol/ipratropium nebulizer. 4. Continue Singulair. 5. Check anti-GBM and ANCA level. Dr. Jensen, thank you for involving me in the care of Ms. Choe. TRANSINT:[id number] Voice Confirmation ID: [id number] DOCUMENT ID: [id number] NILDA SANTOS MD CC: [id number] DICTATION DATE: 05/27/181713 URBAN DESIGNER: 05/27/18 182 ADM IN [place] [id number] [place] [address]
[2018-05-26] MEDS ORDERED: AMOXICILLIN500 M1 PO (09:37)
[2018-05-26 09:54] LABS: APPEARANCE CLEAR (CLEAR); COLOR STRAW (YELLOW); GLUCOSE NEGATIVE (NEGATIVE); KETONE NEGATIVE (NEGATIVE); NITRITE NEGATIVE (NEGATIVE); PROTEIN NEGATIVE (NEGATIVE); UROBILINOGEN NORMAL (NORMAL)
[2018-05-26 09:55] LABS: BILIRUBIN NEGATIVE (NEGATIVE)
[2018-05-26 10:01] LABS: BASOPHILS 0.6 % (0-2); EOSINOPHILS 3.4 % (0-7); HEMATOCRIT 39.8 % (36.0-48.0); HEMOGLOBIN 12.9 g/dL (12-16); LYMPHOCYTES 27.4 % (15-50); MCH 32.2 pg (26.0-34.0); MCHC 32.4 g/dL (31.0-37.0); MCV 99.3 fL (80.0-100.0); MEAN PLATELET VOLUME 12.6 fL (7.4-10.4); MONOCYTES 8.4 % (2-11); NEUTROPHILS 60.2 % (40-80); RBC 4.01 10x6/uL (4.00-5.40); RDW 12.9 % (11.5-14.5); WBC 5.3 10x3/uL (4.8-10.8)
[2018-05-26 10:02] LABS: PLATELET COUNT 184 10x3/uL (130-400)
[2018-05-26 10:06] VITALS: BP 150/57
[2018-05-26 10:16] LABS: ALBUMIN 2.6 g/dL (3.4-5.0); ALKALINE PHOSPHATASE 69 U/L (46-116); ALT (SGPT) 17 U/L (10-68); BILIRUBIN - TOTAL 0.53 mg/dL (0.2-1.3); CALC OSMOLALITY 275 mosm/kg (275-300); CALCIUM 9.1 mg/dL (8.5-10.1); CARBON DIOXIDE 33.2 mmol/L (21.0-32.0); CHLORIDE - SERUM 102 mmol/L (98-107); CREATININE - SERUM 0.6 mg/dL (0.6-1.3); GLUCOSE 94 mg/dL (74-106); LIPASE 103 U/L (73-393); POTASSIUM - SERUM 4.3 mmol/L (3.5-5.1); PROTEIN - SERUM 6.9 g/dL (6.4-8.2); SODIUM 140 mmol/L (136-145); UREA NITROGEN 5 mg/dL (7-18); eGFR NON AFRICAN AMERICAN > 90 mL/min (90-120)
--- NOTE | 2018-05-26 12:00 | NUR ---
PT TO RADIOLOGY AT THIS TIME
--- NOTE | 2018-05-26 13:52 | MORECARE ---
CASE MANAGEMENT DISCHARGE SUMMARY PATIENT: RON CHOE UNIT: [id number] ADM DATE: 05/26/18 AGE: 72 : 43 SEX: F ROOM/BED: D.E14 AUTHOR: ANTONIADOC PHYSICIAN: REFERRING PHYSICIAN: KIM MONTANO MD DATE OF SERVICE: 05/26/18 Discharge Plan Patient Name: RON CHOE Facility: [facility]:[place] : 1945 Planned Disposition: Home Anticipated Discharge Date: 05/31/18 Discharge Date: Expected LOS: 5 Initial Reviewer: [email or web address] Initial Review Date: 05/26/2018 Generated: 05/26/18 2:52 pm DCP- Discharge Planning Updated by [email or web address]: Lisandra Starkey on 05/26/18 12:[address] Patient Name: RON CHOE Admission Status: ER Accout number: [id number] Admission Date: 05-26-2018 : 1945 Admission Diagnosis: Attending: KIM MONTANO Current LOS: 1 Anticipated DC Date: 05-31-2018 Planned Disposition: Home Primary Insurance: MEDICARE A & B Discharge Planning Comments: CM met with patient to complete initial dc planning assessment. CM educated patient on the CM role and verbal consent given by patient to complete assessment. Patient lives at home with her son. She reports she is independent in her ADL's and IADL's at home. At discharge patient plans to return home with her son and feels this is a safe discharge. CM discussed availability of home health, rehab services, and medical equipment. Patient denied known discharge needs at this time. CM will continue to follow and will assist as needed with dc plans/needs. [place]: Lisandra Starkey RN, [facility] DCPIA - Discharge Planning Initial Assessment Updated by [email or web address]: Lisandra Starkey on 05/26/18 1:49 pm * Is the patient Alert and Oriented? Yes * How many steps to enter\exit or inside your home? ramp * PCP Dr. Elvie Steele * [facility] * Preadmission Environment Home with Family * ADLs Independent * Equipment Nebulizer Oxygen * Other Equipment Pulse Ox * List name and contact numbers for known caregivers / representatives who currently or will assist patient after discharge: Dung Choe - cami - [phone] * Verbal permission to speak to the caregivers and representatives has been obtained from the patient. Yes * Community resources currently utilized None * Additional services required to return to the preadmission environment? No * Can the patient safely return to the preadmission environment? Yes * Has this patient been hospitalized within the prior 30 days at any hospital? No Patient Name: RON CHOE Page 17367 at 1352 All edits/amendments must be made on the electronic document DICTATION DATE: 05/26/18 1351 CORE FILER: VELMA 05/26/18 1351 RPT#: [id number] DC DATE: STATUS: ADM IN [facility] [address] [place] [address] END OF REPORT
[2018-05-26 13:57] VITALS: BP 144/60
--- NOTE | 2018-05-26 13:59 | NUR ---
PT RESTING. AWAITING ADMISSION. VS WNL. DENIES NEEDS AT THIS TIME
--- NOTE | 2018-05-26 14:14 | NUR ---
ASSISTED PT TO RESTROOM AT THIS TIME.
--- NOTE | 2018-05-26 14:30 | NUR ---
STOP TIME FOR LEVAQUIN 1436
--- NOTE | 2018-05-26 15:00 | NUR ---
STOOL X 1 AT THIS TIME.
[2018-05-26 15:17] VITALS: BP 155/69
[2018-05-26 17:56] VITALS: BMI 32.8
--- NOTE | 2018-05-26 19:15 | NUR ---
RECEIVED CARE FROM DAY NURSE. SITTING UP ON SIDE OF BED. REPORTS NO NEEDS AT THIS TIME. CALL LIGHT AT SIDE. IV INFUSING NS AT 100 TO LEFT AC.
[2018-05-26 20:00] VITALS: BP 142/58
[2018-05-27 00:02] VITALS: BP 134/42
--- NOTE | 2018-05-27 02:26 | NUR ---
RESTING QUITLY WITH NO DISTRESS NOTED.
--- NOTE | 2018-05-27 02:44 | NUR ---
RESTING QUITELY IN BED RESP UNLABORED NO APPARENT DISTRESS CALL LIGHT IN REACH
[2018-05-27 03:00] VITALS: BP 130/51
--- NOTE | 2018-05-27 04:00 | NUR ---
PT REPORTS SHE IS HAVING BLOODY SPUTUM BUT HAS BEEN HAVING THIS FOR A COUPLE DAYS BUT SEEMS A LITTLE WORSE NOW.
[2018-05-27 08:25] VITALS: BP 139/45
[2018-05-27 10:45] LABS: BASOPHILS 0.5 % (0-2); HEMATOCRIT 36.4 % (36.0-48.0); HEMOGLOBIN 11.4 g/dL (12-16); LYMPHOCYTES 31.6 % (15-50); MCH 31.1 pg (26.0-34.0); MCHC 31.3 g/dL (31.0-37.0); MCV 99.5 fL (80.0-100.0); MONOCYTES 8.1 % (2-11); NEUTROPHILS 56.8 % (40-80); PLATELET COUNT 166 10x3/uL (130-400); RBC 3.66 10x6/uL (4.00-5.40); RDW 12.8 % (11.5-14.5); WBC 4.1 10x3/uL (4.8-10.8)
[2018-05-27 10:58] LABS: ALBUMIN 2.3 g/dL (3.4-5.0); ALKALINE PHOSPHATASE 62 U/L (46-116); ALT (SGPT) 17 U/L (10-68); BILIRUBIN - TOTAL 0.36 mg/dL (0.2-1.3); CALC OSMOLALITY 278 mosm/kg (275-300); CARBON DIOXIDE 33.6 mmol/L (21.0-32.0); CHLORIDE - SERUM 104 mmol/L (98-107); CREATININE - SERUM 0.5 mg/dL (0.6-1.3); GLUCOSE 116 mg/dL (74-106); PROTEIN - SERUM 6.1 g/dL (6.4-8.2); SODIUM 141 mmol/L (136-145); UREA NITROGEN 5 mg/dL (7-18); eGFR NON AFRICAN AMERICAN > 90 mL/min (90-120)
[2018-05-27 11:01] LABS: POTASSIUM - SERUM 3.6 mmol/L (3.5-5.1)
[2018-05-27 12:26] VITALS: BP 102/84
[2018-05-27 13:32] VITALS: Ht 160 cm; Wt 83.9 kg
--- NOTE | 2018-05-27 15:16 | NUR ---
PATINET ALERT AND ORIENTED UP AD BRICE. O2 2LITER N/C. WHEEZES AND RHONCHI NOTED ON AUSCULTATION. IVF INFUSING AT PRESCRIBED RATE WITH NO S/S OF INFECTION/INFILTRATION.
[2018-05-27 17:23] VITALS: BP 122/45
--- NOTE | 2018-05-27 17:26 | NUR ---
IV INFILITRATED, STOP FLUIDS, REMOVED CATHETER, TIP INTACT, DENIES ANY DISCOMFORTS, BED LOWERED AND LOCKED, CALL LIGHT WITHIN REACH.CPOC
[2018-05-27 20:31] VITALS: BP 131/89
--- NOTE | 2018-05-28 01:03 | NUR ---
A/OX4. RESITED IV TO RT HAND 20GA AT 2230. BREATHING EVEN AND HAS SLIGHT DYSPNEA. DENIES NEEDS AT THIS TIME. WILL CONTINUE POC.
--- NOTE | 2018-05-28 04:14 | NUR ---
CT INFORMED ME THAT PT NEEDED 20GA IV IN A SITE, OTHER THAN HAND, FOR IMAGING. SITED ADDITIONAL IV 20GA RT AC. WILL CONTINUE POC.
[2018-05-28 04:47] VITALS: BP 150/58
--- NOTE | 2018-05-28 04:58 | NUR ---
PT RETURNED FROM CT. CONTINUE FLUIDS AND POC.
[2018-05-28 05:36] LABS: BASOPHILS 0.2 % (0-2); EOSINOPHILS 0.2 % (0-7); HEMATOCRIT 38.1 % (36.0-48.0); HEMOGLOBIN 12.1 g/dL (12-16); LYMPHOCYTES 13.4 % (15-50); MCH 31.2 pg (26.0-34.0); MCHC 31.8 g/dL (31.0-37.0); MCV 98.2 fL (80.0-100.0); MONOCYTES 1.1 % (2-11); NEUTROPHILS 85.1 % (40-80); PLATELET COUNT 173 10x3/uL (130-400); RBC 3.88 10x6/uL (4.00-5.40); RDW 12.9 % (11.5-14.5); WBC 4.4 10x3/uL (4.8-10.8)
[2018-05-28 06:09] LABS: ALBUMIN 2.5 g/dL (3.4-5.0); ALKALINE PHOSPHATASE 63 U/L (46-116); ALT (SGPT) 17 U/L (10-68); BILIRUBIN - TOTAL 0.44 mg/dL (0.2-1.3); CALC OSMOLALITY 276 mosm/kg (275-300); CALCIUM 8.4 mg/dL (8.5-10.1); CARBON DIOXIDE 27.5 mmol/L (21.0-32.0); CHLORIDE - SERUM 102 mmol/L (98-107); CREATININE - SERUM 0.5 mg/dL (0.6-1.3); GLUCOSE 134 mg/dL (74-106); PROTEIN - SERUM 6.6 g/dL (6.4-8.2); SODIUM 138 mmol/L (136-145); UREA NITROGEN 10 mg/dL (7-18); eGFR NON AFRICAN AMERICAN > 90 mL/min (90-120)
--- NOTE | 2018-05-28 08:05 | NUR ---
PT RESTING IN BED EYES OPEN. NO C/O PAIN. NO S/S OF ACUTE DISTRESS NOTED. PT ALERT AND ORIENTED. UP AD BRICE. IV TO RIGHT FOREARM AND IV TO RIGHT HAND, SITES PATENT WITHOUT REDNESS OR SWELLING. NS INFUSING @ 100ML/HR. EXPIRATORY WHEEZES AUSCULTATED BILATERAL LUNGS. PT ON 2L O2, NC WITH HUMIDIFIER. PT DENIES ANYTHING FURTHER AT THIS TIME. CALL LIGHT IN REACH. WILL CONTINUE TO MONITOR.
[2018-05-28 08:59] VITALS: BP 149/62
[2018-05-28 12:16] VITALS: BP 131/59
--- NOTE | 2018-05-28 12:25 | NUR ---
PATIENT AMBULATING IN ROOM WITH NO NEEDS VOICED. DENIES PAIN, RESPIRATIONS NONLABORED, CL IN REACH
[2018-05-28 16:02] VITALS: BP 128/58
--- NOTE | 2018-05-28 19:34 | NUR ---
PT RESTING IN BED, EYES OPEN. NO C/O PAIN. NO S/S OF ACUTE DISTRESS NOTED. PT DENIES ANYTHING FURTHER. CALL LIGHT IN REACH. WILL CONTINUE TO MONITOR.
--- NOTE | 2018-05-28 20:30 | NUR ---
AWAKE,ALERT.NO COMPLAITNS VOICED. RESP EVEN AND UANLBORED. NO DISTRESS NOTED.O2 @ 2L PER NC ON.IV TO RIGHT HAND INTACT WITHOUT REDNESS OR EDEMA NOTED. CL IN REACH
[2018-05-28 20:36] VITALS: BP 140/47
[2018-05-29 01:58] VITALS: BP 146/60
[2018-05-29 04:12] VITALS: BP 154/64
[2018-05-29 06:12] LABS: ALBUMIN 2.3 g/dL (3.4-5.0); ALKALINE PHOSPHATASE 53 U/L (46-116); ALT (SGPT) 15 U/L (10-68); BILIRUBIN - TOTAL 0.28 mg/dL (0.2-1.3); CALC OSMOLALITY 284 mosm/kg (275-300); CALCIUM 7.8 mg/dL (8.5-10.1); CARBON DIOXIDE 27.5 mmol/L (21.0-32.0); CHLORIDE - SERUM 107 mmol/L (98-107); CREATININE - SERUM 0.5 mg/dL (0.6-1.3); GLUCOSE 127 mg/dL (74-106); POTASSIUM - SERUM 4.6 mmol/L (3.5-5.1); PROTEIN - SERUM 5.5 g/dL (6.4-8.2); SODIUM 142 mmol/L (136-145); UREA NITROGEN 12 mg/dL (7-18); eGFR NON AFRICAN AMERICAN > 90 mL/min (90-120)
[2018-05-29 06:21] LABS: BASOPHILS 0 % (0-2); EOSINOPHILS 0 % (0-7); HEMOGLOBIN 11.1 g/dL (12-16); IMMATURE GRANULOCYTES 0.2 % (0-5); LYMPHOCYTES 11.2 % (15-50); MCH 31.1 pg (26.0-34.0); MCHC 31.7 g/dL (31.0-37.0); MEAN PLATELET VOLUME 12.5 fL (7.4-10.4); MONOCYTES 2.6 % (2-11); PLATELET COUNT 169 10x3/uL (130-400); RBC 3.57 10x6/uL (4.00-5.40); WBC 4.9 10x3/uL (4.8-10.8)
--- NOTE | 2018-05-29 07:20 | NUR ---
PT RESTING IN BED, EYES OPEN. NO C/O PAIN. NO S/S OF ACUTE DISTRESS NOTED. PT ALERT AND ORIENTED. PT NPO. ON ELECTROLYTE PROTOCOL. IV TO RIGHT AC AND RIGHT HAND, SITES PATENT WITHOUT REDNESS OR SWELLING. NS INFUSING @ 100ML/HR. PT DENIES ANYTHING FURTHER AT THIS TIME. CALL LIGHT IN REACH. WILL CONTINUE TO MONITOR.
[2018-05-29 09:16] VITALS: BP 134/53
[2018-05-29 12:00] VITALS: BP 156/66
--- NOTE | 2018-05-29 15:26 | NUR ---
CO FOUNDER AND CTO NOTES - 2L O2 PER NC PRN. EXPIRATORY WHEEZES TO ALL CATHERINE. NO NEEDS AT THIS TIME.
--- NOTE | 2018-05-29 18:32 | NUR ---
PT SITTING ON THE SIDE OF THE BED TALKING ON PHONE. NO C/O PAIN. NO S/S OF ACUTE DISTRESS NOTED. PT DENIES ANYTHING FURTHER AT THIS TIME. CALL LIGHT IN REACH. WILL CONTINUE TO MONITOR.
[2018-05-29 20:35] VITALS: BP 167/65
--- NOTE | 2018-05-30 00:21 | NUR ---
A/OX4. BREATHING EVEN AND UNLABORED. DENIES NEEDS. CALL LIGHT IN REACH, BED LOW. WILL CONTINUE POC.
[2018-05-30 00:46] VITALS: BP 145/59
[2018-05-30 04:57] VITALS: BP 128/69
[2018-05-30 06:57] LABS: BASOPHILS 0.2 % (0-2); EOSINOPHILS 0 % (0-7); HEMATOCRIT 35.9 % (36.0-48.0); HEMOGLOBIN 11.4 g/dL (12-16); LYMPHOCYTES 9.4 % (15-50); MCH 31.2 pg (26.0-34.0); MCHC 31.8 g/dL (31.0-37.0); MCV 98.4 fL (80.0-100.0); MEAN PLATELET VOLUME 13.1 fL (7.4-10.4); NEUTROPHILS 87.4 % (40-80); PLATELET COUNT 192 10x3/uL (130-400); RBC 3.65 10x6/uL (4.00-5.40); RDW 13.1 % (11.5-14.5)
[2018-05-30 07:07] LABS: WBC 6.6 10x3/uL (4.8-10.8)
[2018-05-30 07:20] LABS: ALBUMIN 2.3 g/dL (3.4-5.0); ALKALINE PHOSPHATASE 51 U/L (46-116); ALT (SGPT) 14 U/L (10-68); BILIRUBIN - TOTAL 0.35 mg/dL (0.2-1.3); CALC OSMOLALITY 281 mosm/kg (275-300); CARBON DIOXIDE 26.8 mmol/L (21.0-32.0); CHLORIDE - SERUM 105 mmol/L (98-107); CREATININE - SERUM 0.6 mg/dL (0.6-1.3); GLUCOSE 117 mg/dL (74-106); POTASSIUM - SERUM 4.1 mmol/L (3.5-5.1); PROTEIN - SERUM 5.9 g/dL (6.4-8.2); SODIUM 140 mmol/L (136-145); eGFR NON AFRICAN AMERICAN > 90 mL/min (90-120)
[2018-05-30 07:27] LABS: UREA NITROGEN 19 mg/dL (7-18)
--- NOTE | 2018-05-30 07:35 | NUR ---
PT SITTING UP ON THE SIDE OF THE BED. NO C/O PAIN. NO S/S OF ACUTE DISTRESS NOTED. PT ALERT AND ORIENTED. UP AD BRICE. ON 2L O2, NC PRN. IVS INFILTRATED, UNABLE TO GAIN IV ACCESS, CONSULTED VASSCULAR. EXPIRATORY WHEEZES AUSCULTATED, BILATERAL LOBES. PT ON ELECTROLYTE PROTOCOL. PT DENIES ANYTHING FURTHER. CALL LIGHT IN REACH. WILL CONTINUE TO MONITOR.
[2018-05-30 08:57] VITALS: BP 110/68
[2018-05-30 13:03] VITALS: BP 113/78
[2018-05-30 16:13] LABS: ANCA - ANTIMYELOPEROXIDASE <9.0 U/mL (0.0-9.0); ANCA - ANTIPROTEINASE 3 <3.5 U/mL (0.0-3.5); ANCA - ATYPICAL <1:20 titer (Neg:<1:20); ANCA - CYTOPLASMIC <1:20 titer (Neg:<1:20); ANCA - PERINUCLEAR <1:20 titer (Neg:<1:20)
[2018-05-30 17:26] VITALS: BP 114/71
--- NOTE | 2018-05-30 18:15 | EC ---
PATIENT:RON ALBERTO DATE OF SERVICE: 05/26/18 SEX: F MEDICAL RECORD: [id number] DATE OF : 41 LOCATION:D.MS [place] AGE OF PATIENT: 72 ADMISSION DATE: 05/26/18 REFERRING PHYSICIAN: INTERPRETING PHYSICIAN: BENITO PURDY MD ECHOCARDIOGRAM REPORT ECHO CHARGES 4 ECHO COMPLETE Date: 05/29/18 CLINICAL DIAGNOSIS: R/O PULMONARY HTN ECHOCARDIOGRAPHIC MEASUREMENTS (adult normal given) AC root (d.<3.7cm) 3.4 cm LV Septum d (<1.2 cm> 1.5 cm Valve Excursion 1.6 cm LV Septum (systole) 2.3 cm Left Atria (s.<4.0cm> 4.0 cm LVPW d(<1.2cm) 1.3 cm RV (d.<2.3cm) 2.9 cm LVPW (sytole) 2.4 cm LV diastole(<5.6CM) 6.1 cm MV E-F(>70mm/sec) cm LV systole 3.2 cm LVOT Diameter 1.9 cm MV exc.(>10mm) cm Est.ejection fraction (50-75%) % DOPPLER: LVIT cm/sec A 76.0 cm/sec E 103 cm/sec LA cm/sec RVSP 45.2 mmHg LVOT 121 cm/sec AOP1/2T m/s Asc. Ao 158 cm/sec RVOT 48.0 cm/sec RA cm/sec PA 110 cm/sec AV Gradient Peak 10.0 mmHg AV Mean 5.1 mmHg AV Area 2.0 cm MV Gradient Peak 6.0 mmHg MV Mean 2.1 mmHg MV Area cm COMMENTS: Shift Production Supervisor: Stacey HALLOE Rn Pool: 1 Dr. Purdy TAPE# PACS Pericardial Effusion N DATE OF SERVICE: 05/29/2018 FINDINGS: 1. Left ventricular chamber size is mildly dilated. Left ventricular systolic function is normal. Overall ejection fraction estimated at 55%. 2. Left atrium, right atrium, and right ventricle chamber sizes are as well upper limits of normal, left atrium measures 4.0 cm. 3. Valvular structures have normal structure and motion. 4. Doppler interrogation reveals mild mitral regurgitation, moderate tricuspid regurgitation, no other valvular insufficiency or stenosis. Pulmonary systolic ECHOCARDIOGRAM REPORT [id number] REMY,DOSHA M pressure is estimated at 45 mmHg. 5. No evidence of pericardial effusion or left ventricular thrombus. TRANSINT:[id number] Voice Confirmation ID: [id number] DOCUMENT ID: [id number] BENITO PURDY MD at 1815 CC: [id number] DICTATION DATE: 05/29/18 1332 SHEETER OPERATOR: 05/29/18 1414 ADM IN [place] [id number] [place] [address]
--- NOTE | 2018-05-30 19:14 | NUR ---
PT SITTING ON THE SIDE OF THE BED. NO C/O PAIN. NO S/S OF ACUTE DISTRESS NOTED. CALL LIGHT IN REACH. PT DENIES ANYTHING FURTHER AT THIS TIME. WILL CONTINUE TO MONITOR.
--- NOTE | 2018-05-30 19:55 | NUR ---
THE PATIENT WAS LYING IN BED AND WATCHING TELEVISION WHEN STAFF ENTERED HER ROOM. BED IN LOW POSITION WITH SIDERAILS X2 AND CALL LIGHT WITHIN REACH. PATIENT DEMONSTRATES APPROPRIATE USE OF A CALL LIGHT. THE PATIENT APPEARS COMFORTABLE WITH NO QUESTIONS OR CONCERNS AT THIS TIME.
[2018-05-30 20:31] VITALS: BP 112/49
[2018-05-31 00:54] VITALS: BP 117/51
--- NOTE | 2018-05-31 01:40 | NUR ---
THE PATIENT APPEARS TO BE SLEEPING COMFORTABLY.
[2018-05-31 04:12] LABS: BASOPHILS 0.2 % (0-2); EOSINOPHILS 0 % (0-7); HEMATOCRIT 36.6 % (36.0-48.0); HEMOGLOBIN 11.6 g/dL (12-16); IMMATURE GRANULOCYTES 0.2 % (0-5); LYMPHOCYTES 12.8 % (15-50); MCH 31.3 pg (26.0-34.0); MCHC 31.7 g/dL (31.0-37.0); MCV 98.7 fL (80.0-100.0); MEAN PLATELET VOLUME 13.8 fL (7.4-10.4); MONOCYTES 4.3 % (2-11); NEUTROPHILS 82.5 % (40-80); RBC 3.71 10x6/uL (4.00-5.40); RDW 13.2 % (11.5-14.5); WBC 5.3 10x3/uL (4.8-10.8)
[2018-05-31 04:15] LABS: PLATELET COUNT 150 10x3/uL (130-400)
[2018-05-31 04:42] LABS: ALBUMIN 1.9 g/dL (3.4-5.0); ALKALINE PHOSPHATASE 45 U/L (46-116); ALT (SGPT) 14 U/L (10-68); BILIRUBIN - TOTAL 0.31 mg/dL (0.2-1.3); CALC OSMOLALITY 283 mosm/kg (275-300); CALCIUM 7.5 mg/dL (8.5-10.1); CARBON DIOXIDE 28.8 mmol/L (21.0-32.0); CHLORIDE - SERUM 105 mmol/L (98-107); CREATININE - SERUM 0.6 mg/dL (0.6-1.3); GLUCOSE 118 mg/dL (74-106); POTASSIUM - SERUM 4.2 mmol/L (3.5-5.1); PROTEIN - SERUM 5.3 g/dL (6.4-8.2); SODIUM 141 mmol/L (136-145); UREA NITROGEN 18 mg/dL (7-18); eGFR NON AFRICAN AMERICAN > 90 mL/min (90-120)
[2018-05-31 09:46] VITALS: BP 127/66
--- NOTE | 2018-05-31 12:18 | NUR ---
NUTRITION F/U PT TOLERATING AHA DIET WITH 100% INTAKE RECENT MEALS. REMAINS AT LOW NUTRITIONAL RISK. RD FOLLOWING
--- NOTE | 2018-05-31 15:09 | NUR ---
PATIENT SITTING UP IN CHAIR, DENIES NEEDS, RESPIRATIONS NONLABORED, DENIES PAIN, CL IN REACH
[2018-05-31 15:21] LABS: ANA REFLEX - DIRECT Negative (Negative)
[2018-05-31 18:12] VITALS: BP 114/72
[2018-05-31 19:00] VITALS: BP 152/62
--- NOTE | 2018-05-31 20:35 | NUR ---
THE PATIENT WAS WATCHING TELEVISION WHEN STAFF ENTERED ER AREA. BED IN THE LOWPOSITION WITH SIDERAILS X2 AND CALL LIGHT WITHIN REACH. PATIENT DEMONSTRATE SUSE OF THE CALL LIGHT. PATIENT EDUCATED IN IV MEDICATION DELIVERY AND DEMONSTRATES UNDERSTANDING VIA TEACHBACK METHOD. THE PATIENT APPEARS COMFORTABLE WITH NO QUESTIONS OR CONCERNS AT THIS TIME.
[2018-06-01] VITALS: BP 151/53
--- NOTE | 2018-06-01 01:45 | NUR ---
THE PATIENT APPEARS TO BE SLEEPING COMFORTABLY.
[2018-06-01 03:00] VITALS: BP 148/60
[2018-06-01 04:47] LABS: BASOPHILS 0 % (0-2); EOSINOPHILS 0 % (0-7); HEMOGLOBIN 11.6 g/dL (12-16); IMMATURE GRANULOCYTES 0.2 % (0-5); LYMPHOCYTES 13.7 % (15-50); MCH 31.2 pg (26.0-34.0); MCHC 32.2 g/dL (31.0-37.0); MCV 96.8 fL (80.0-100.0); MONOCYTES 5.6 % (2-11); NEUTROPHILS 80.5 % (40-80); PLATELET COUNT 186 10x3/uL (130-400); RBC 3.72 10x6/uL (4.00-5.40); WBC 6.1 10x3/uL (4.8-10.8)
[2018-06-01 05:15] LABS: ALKALINE PHOSPHATASE 47 U/L (46-116); ALT (SGPT) 15 U/L (10-68); CALC OSMOLALITY 280 mosm/kg (275-300); CALCIUM 7.7 mg/dL (8.5-10.1); CARBON DIOXIDE 28.6 mmol/L (21.0-32.0); CHLORIDE - SERUM 104 mmol/L (98-107); CREATININE - SERUM 0.6 mg/dL (0.6-1.3); GLUCOSE 122 mg/dL (74-106); POTASSIUM - SERUM 4.1 mmol/L (3.5-5.1); PROTEIN - SERUM 5.2 g/dL (6.4-8.2); SODIUM 139 mmol/L (136-145); UREA NITROGEN 17 mg/dL (7-18); eGFR NON AFRICAN AMERICAN > 90 mL/min (90-120)
[2018-06-01 08:00] VITALS: BP 140/78
[2018-06-01 12:00] VITALS: BP 110/52
--- NOTE | 2018-06-01 14:21 | MORECARE ---
CASE MANAGEMENT DISCHARGE SUMMARY PATIENT: RON CHOE UNIT: [id number] ADM DATE: 05/26/18 AGE: 72 : 43 SEX: F ROOM/BED: D.2229 AUTHOR: ANTONIADOC PHYSICIAN: REFERRING PHYSICIAN: KIM MONTANO MD DATE OF SERVICE: 06/01/18 Discharge Plan Patient Name: RON CHOE Facility: [facility]:[place] : 1945 Planned Disposition: Home Anticipated Discharge Date: 05/31/18 Discharge Date: Expected LOS: 5 Initial Reviewer: [email or web address] Initial Review Date: 05/26/2018 Generated: 06/01/18 3:20 pm Comments DCP- Discharge Planning Updated by [email or web address]: Maxine Quigley on 06/01/18 1:[address] LATE ENTRY 1310 CM MET WITH THE PATIENT AT THE BEDSIDE. SHE HAS OXYGEN AND NEBULIZER AT HOME FROM [facility]. DENIES ANY ADDITIONAL DME NEEDS. SHE WAS ASSESSED BY CM EARLIER IN HER STAY. SHE CONTINUES TO DECLINES HOME HEALTH OR ANY SERVICES. STATES SHE WAS NOT AWARE OF BEING DISCHARGED. STATES SHE DOES NOT FEEL THAT MUCH BETTER. WANTED TO KNOW IF DR GUILLEN SPOKE WITH DR BENITO REGARDING A GI CONSULT POST DISCHARGE. SHE WILL HAVE TRANSPORTATION IF DISCHARGED. STATES HER DAUGHTER IN LAW CAN PICK HER UP. CM SPOKE WITH HER PRIMARY NURSE. AWAIT CLEARANCE FROM OTHER DOCTORS. DCP- Discharge Planning Updated by [email or web address]: Lisandra Starkey on 05/26/18 12:[address] Patient Name: RON CHOE Admission Status: ER Accout number: [id number] Admission Date: 05-26-2018 : 1945 Admission Diagnosis: Attending: KIM MONTANO Current LOS: 1 Anticipated DC Date: 05-31-2018 Planned Disposition: Home Primary Insurance: MEDICARE A & B Discharge Planning Comments: CM met with patient to complete initial dc planning assessment. CM educated patient on the CM role and verbal consent given by patient to complete assessment. Patient lives at home with her son. She reports she is independent in her ADL's and IADL's at home. At discharge patient plans to return home with her son and feels this is a safe discharge. CM discussed availability of home health, rehab services, and medical equipment. Patient denied known discharge needs at this time. CM will continue to follow and will assist as needed with dc plans/needs. Religion Professor: Lisandra Starkey RN, [facility] DCPIA - Discharge Planning Initial Assessment Updated by [email or web address]: Lisandra Starkey on 05/26/18 1:49 pm * Is the patient Alert and Oriented? Yes * How many steps to enter\exit or inside your home? ramp * PCP Dr. Elvie Steele * [facility] * Preadmission Environment Home with Family * ADLs Independent * Equipment Nebulizer Oxygen * Other Equipment Pulse Ox * List name and contact numbers for known caregivers / representatives who currently or will assist patient after discharge: Dung Choe - son - [phone] * Verbal permission to speak to the caregivers and representatives has been obtained from the patient. Yes * Community resources currently utilized None * Additional services required to return to the preadmission environment? No * Can the patient safely return to the preadmission environment? Yes * Has this patient been hospitalized within the prior 30 days at any hospital? No Last DP export: 05/26/18 12:52 p Patient Name: RON CHOE Page 82027 at 1421 All edits/amendments must be made on the electronic document DICTATION DATE: 06/01/181419 PHYSIOTHERAPY PRACTICE MANAGER: VELMA 06/01/181419 RPT#: [id number] DC DATE: STATUS: ADM IN [facility] [address] [place] [address] END OF REPORT
[2018-06-01] MEDS ORDERED: MUCINEX600 MG PO (15:26)
[2018-06-01] MEDS ORDERED: FLORAJEN3 CAPS460 MG PO (15:26)
[2018-06-01] MEDS ORDERED: TESSALON PERLE100 MG PO (15:26)
[2018-06-01] MEDS ORDERED: LEVAQUIN750 MG PO (15:27)
[2018-06-01] MEDS ORDERED: DOXYCYCLINE HY100 M2 PO (15:27)
[2018-06-01] MEDS ORDERED: PREDNISONE10 MG PO (15:27)
--- NOTE | 2018-06-01 20:35 | NUR ---
REVIEWED DISCHARGE INSTRUCTIONS. TOOK PT DOWN TO RIDE IN WHEELCHAIR.
--- NOTE | 2018-06-05 07:12 | MORECARE ---
CASE MANAGEMENT DISCHARGE SUMMARY PATIENT: RON CHOE UNIT: [id number] ADM DATE: 05/26/18 AGE: 72 : 43 SEX: F ROOM/BED: D.2229 AUTHOR: THERESE KNIGHT PHYSICIAN: REFERRING PHYSICIAN: KIM MONTANO MD DATE OF SERVICE: 06/05/18 Discharge Plan Patient Name: RON CHOE Facility: [facility]:[place] : 1945 Planned Disposition: Home Anticipated Discharge Date: 05/31/18 Discharge Date: 06/01/2018 Expected LOS: 5 Initial Reviewer: [email or web address] Initial Review Date: 05/26/2018 Generated: 06/05/18 8:12 am Comments DCP- Discharge Planning Updated by [id number]: Maxine Quigley on 06/01/18 1:[address] LATE ENTRY 1310 CM MET WITH THE PATIENT AT THE BEDSIDE. SHE HAS OXYGEN AND NEBULIZER AT HOME FROM [facility]. DENIES ANY ADDITIONAL DME NEEDS. SHE WAS ASSESSED BY CM EARLIER IN HER STAY. SHE CONTINUES TO DECLINES HOME HEALTH OR ANY SERVICES. STATES SHE WAS NOT AWARE OF BEING DISCHARGED. STATES SHE DOES NOT FEEL THAT MUCH BETTER. WANTED TO KNOW IF DR GUILLEN SPOKE WITH DR BENITO REGARDING A GI CONSULT POST DISCHARGE. SHE WILL HAVE TRANSPORTATION IF DISCHARGED. STATES HER DAUGHTER IN LAW CAN PICK HER UP. CM SPOKE WITH HER PRIMARY NURSE. AWAIT CLEARANCE FROM OTHER DOCTORS. DCP- Discharge Planning Updated by [id number]: Lisandra Starkey on 05/26/18 12:[address] Patient Name: RON CHOE Admission Status: ER Accout number: [id number] Admission Date: 05-26-2018 : 1945 Admission Diagnosis: Attending: KIM MONTANO Current LOS: 1 Anticipated DC Date: 05-31-2018 Planned Disposition: Home Primary Insurance: MEDICARE A & B Discharge Planning Comments: CM met with patient to complete initial dc planning assessment. CM educated patient on the CM role and verbal consent given by patient to complete assessment. Patient lives at home with her son. She reports she is independent in her ADL's and IADL's at home. At discharge patient plans to return home with her son and feels this is a safe discharge. CM discussed availability of home health, rehab services, and medical equipment. Patient denied known discharge needs at this time. CM will continue to follow and will assist as needed with dc plans/needs. Mobile Patrol Officer: Lisandra Starkey RN, [facility] DCPIA - Discharge Planning Initial Assessment Updated by [email or web address]: Lisandra Starkey on 05/26/18 1:49 pm * Is the patient Alert and Oriented? Yes * How many steps to enter\exit or inside your home? ramp * PCP Dr. Elvie Steele * [facility] * Preadmission Environment Home with Family * ADLs Independent * Equipment Nebulizer Oxygen * Other Equipment Pulse Ox * List name and contact numbers for known caregivers / representatives who currently or will assist patient after discharge: Dung Choe - cami - [phone] * Verbal permission to speak to the caregivers and representatives has been obtained from the patient. Yes * Community resources currently utilized None * Additional services required to return to the preadmission environment? No * Can the patient safely return to the preadmission environment? Yes * Has this patient been hospitalized within the prior 30 days at any hospital? No Last DP export: 06/01/18 1:20 p Patient Name: RON CHOE Page 11737 at 0712 All edits/amendments must be made on the electronic document DICTATION DATE: 06/05/18710 SILK SCREEN PRINTER MACHINE: VELMA 06/05/18710 RPT#: [id number] DC DATE:06/01/18 STATUS: DIS IN [facility] [address] [place] [address] END OF REPORT
== END 2018-06-01 20:00 | disposition home or self-care (01) | DRG 193 ==
LOC: D.ER 09:28 → D.MS 12:54 → D.EDHOLD 12:54 → D.MS 15:48
PROVIDERS: Emergency Medicine; Family Medicine; Internal Medicine Pulmonary Disease; ADMIT Internal Medicine Nephrology
DX: J18.1 Lobar pneumonia, unspecified organism (principal); J96.22 Acute and chronic respiratory failure with hypercapnia; J96.21 Acute and chronic respiratory failure with hypoxia; J44.1 Chronic obstructive pulmonary disease with (acute) exacerbation; R04.2 Hemoptysis; F17.213 Nicotine dependence, cigarettes, with withdrawal; K57.92 Diverticulitis of intestine, part unspecified, without perforation or abscess without bleeding; J44.0 Chronic obstructive pulmonary disease with (acute) lower respiratory infection; K59.00 Constipation, unspecified; I27.20 Pulmonary hypertension, unspecified; K21.9 Gastro-esophageal reflux disease without esophagitis; Z86.73 Personal history of transient ischemic attack (TIA), and cerebral infarction without residual deficits

== ENCOUNTER → 2018-06-27 11:58 | Outpatient (CLI) | payer MEDICARE, BC ==
[2018-05-27 13:32] VITALS: BMI 32.7
[~2018-06-27 11:58] MED LIST changes: +AMOXICILLIN500 M1 PO; +DOXYCYCLINE HY100 M2 PO; +FLORAJEN3 CAPS460 MG PO; +LEVAQUIN750 MG PO; +MUCINEX600 MG PO
== END | disposition home or self-care (01) ==
LOC: D.CT 11:58
DX: R10.32 Left lower quadrant pain (principal); M54.5 Low back pain; K62.89 Other specified diseases of anus and rectum; R11.0 Nausea; Z87.19 Personal history of other diseases of the digestive system

== ENCOUNTER → 2018-06-28 15:19 | Outpatient (CLI) | payer MEDICARE, BC ==
[2018-05-27 13:32] VITALS: BMI 32.7
[2018-06-28 16:01] LABS: BASOPHILS 0.2 % (0-2); EOSINOPHILS 4.6 % (0-7); HEMATOCRIT 38.3 % (36.0-48.0); HEMOGLOBIN 12.3 g/dL (12-16); IMMATURE GRANULOCYTES 0.2 % (0-5); LYMPHOCYTES 21.9 % (15-50); MCH 31.7 pg (26.0-34.0); MCHC 32.1 g/dL (31.0-37.0); MCV 98.7 fL (80.0-100.0); MONOCYTES 10.4 % (2-11); NEUTROPHILS 62.7 % (40-80); PLATELET COUNT 199 10x3/uL (130-400); RBC 3.88 10x6/uL (4.00-5.40); RDW 13.3 % (11.5-14.5); WBC 6.1 10x3/uL (4.8-10.8)
[2018-06-28 17:05] LABS: ERYTHROCYTE SEDIMENTATION RATE 55 mm/hr (0-30)
== END | disposition home or self-care (01) ==
LOC: D.LAB 15:19
PROVIDERS: Internal Medicine Gastroenterology
DX: R10.13 Epigastric pain (principal); R14.3 Flatulence; R14.0 Abdominal distension (gaseous); K21.9 Gastro-esophageal reflux disease without esophagitis; K62.89 Other specified diseases of anus and rectum

== ENCOUNTER → 2018-08-15 12:23 | Outpatient (CLI) | payer MEDICARE, BC ==
[~2018-08-15 12:23] MED LIST changes: +ATROVENT HFA12.9 GM INH; +LEVOFLOXACIN500 MG PO; +TRELEGY ELLIPT1 EACH INH; +Tessalon Perle PO
== END | disposition home or self-care (01) ==
LOC: D.RAD 12:23
DX: J44.9 Chronic obstructive pulmonary disease, unspecified (principal)

== ENCOUNTER 2018-10-06 08:21 | Inpatient (IN) | payer MEDICARE, BC ==
[~2018-10-06 08:21] MED LIST changes: -ATROVENT HFA12.9 GM INH; -LEVOFLOXACIN500 MG PO; -TRELEGY ELLIPT1 EACH INH; -Tessalon Perle PO
[2018-10-06 09:46] VITALS: BP 149/113
[2018-10-06 09:50] VITALS: BP 154/59
--- NOTE | 2018-10-06 10:57 | NUR ---
BLOOD DRAW VIA IV START. SENT TO LAB
[2018-10-06 11:04] LABS: BASOPHILS 0.4 % (0-2); EOSINOPHILS 2.5 % (0-7); HEMATOCRIT 37.6 % (36.0-48.0); HEMOGLOBIN 12.5 g/dL (12-16); IMMATURE GRANULOCYTES 0.2 % (0-5); LYMPHOCYTES 30.4 % (15-50); MCH 32.2 pg (26.0-34.0); MCHC 33.2 g/dL (31.0-37.0); MCV 96.9 fL (80.0-100.0); MONOCYTES 8.3 % (2-11); NEUTROPHILS 58.2 % (40-80); RBC 3.88 10x6/uL (4.00-5.40); RDW 13.2 % (11.5-14.5); WBC 5.3 10x3/uL (4.8-10.8)
[2018-10-06 11:07] LABS: PLATELET COUNT 135 10x3/uL (130-400)
[2018-10-06 11:42] VITALS: BP 152/62
--- NOTE | 2018-10-06 12:02 | NUR ---
ALERT AND ORIENTED X 3. LUNGS WITH INSPIRATORY WHEEZES IN BILATERAL LOWER LOBES. HEART SOUNDS S1 AND S2 HEARD IN ALL CATHERINE. BOWEL SOUNDS ACTIVE X 4. SKIN INTACT WITHOUT REDNESS. C/O TOOTH ABCESS TO BOTTOM LEFT SIDE. CAME TO HOSPITAL FOR ABCESS AND WAS ADMITTED FOR PNEUMONIA. STATES HAS NOT BEEN SOB. VITALS STABLE. O2 95% ON ROOM AIR. SITTING IN CHAIR AT BEDSIDE. WILL CONTINUE TO MONITOR.
[2018-10-06 12:10] VITALS: BP 169/62; BMI 33.7
--- NOTE | 2018-10-06 12:58 | NUR ---
CALLED DIETARY D/T PATIENT DID NOT RECEIVE LUNCH TRAY. STATED WILL BRING TRAY UP FOR PATIENT.
[2018-10-06 13:51] LABS: ALBUMIN 2.8 g/dL (3.4-5.0); ALKALINE PHOSPHATASE 91 U/L (46-116); ALT (SGPT) 15 U/L (10-68); BILIRUBIN - TOTAL 0.69 mg/dL (0.2-1.3); CALC OSMOLALITY 281 mosm/kg (275-300); CALCIUM 8.6 mg/dL (8.5-10.1); CARBON DIOXIDE 29.9 mmol/L (21.0-32.0); CHLORIDE - SERUM 104 mmol/L (98-107); CREATININE - SERUM 0.5 mg/dL (0.6-1.3); GLUCOSE 107 mg/dL (74-106); MAGNESIUM - SERUM 1.7 mg/dL (1.8-2.4); POTASSIUM - SERUM 3.7 mmol/L (3.5-5.1); PROTEIN - SERUM 6.5 g/dL (6.4-8.2); SODIUM 142 mmol/L (136-145); UREA NITROGEN 9 mg/dL (7-18); eGFR NON AFRICAN AMERICAN > 90 mL/min (90-120)
[2018-10-06 15:02] LABS: CKMB 0.6 U/L (0.0-3.6); CREATINE KINASE 49 UL (21-215)
[2018-10-06 15:08] LABS: TROPONIN-I < 0.017 ng/mL (0.000-0.060)
[2018-10-06 16:58] VITALS: BP 147/58
--- NOTE | 2018-10-06 18:29 | NUR ---
RESTING IN BED. DENIES PAIN. DENIES NEEDS. BED LOW. CALL WALLER AND PERSONAL ITEMS IN REACH.
--- NOTE | 2018-10-06 19:15 | NUR ---
RECEIVED CARE FROM DAY SHIFT. SITTING ON SIDE OF BED WATCHING TV. REPORTS NO NEEDS AT THIS TIME. CALL LIGHT AT SIDE. MAG INFUSING TO LEFT AC.
[2018-10-06 20:16] VITALS: BP 137/48
[2018-10-06 20:47] LABS: CKMB 0.4 U/L (0.0-3.6); CREATINE KINASE 41 UL (21-215); TROPONIN-I < 0.017 ng/mL (0.000-0.060)
[2018-10-07 01:03] VITALS: BP 138/46
--- NOTE | 2018-10-07 01:39 | NUR ---
I have reviewed this patient and I concur with the Shift Assessment completed by the Licensed Practical Nurse today this shift.
[2018-10-07 03:49] LABS: BASOPHILS 0 % (0-2); EOSINOPHILS 0 % (0-7); HEMATOCRIT 35.7 % (36.0-48.0); HEMOGLOBIN 11.7 g/dL (12-16); LYMPHOCYTES 14.5 % (15-50); MCH 31.2 pg (26.0-34.0); MCHC 32.8 g/dL (31.0-37.0); MCV 95.2 fL (80.0-100.0); MEAN PLATELET VOLUME 13.5 fL (7.4-10.4); MONOCYTES 3.5 % (2-11); RBC 3.75 10x6/uL (4.00-5.40)
[2018-10-07 03:53] LABS: PLATELET COUNT 106 10x3/uL (130-400)
[2018-10-07 04:17] LABS: ALBUMIN 2.5 g/dL (3.4-5.0); ALKALINE PHOSPHATASE 76 U/L (46-116); ALT (SGPT) 15 U/L (10-68); BILIRUBIN - TOTAL 0.44 mg/dL (0.2-1.3); CALCIUM 8.4 mg/dL (8.5-10.1); CARBON DIOXIDE 29.5 mmol/L (21.0-32.0); CHLORIDE - SERUM 101 mmol/L (98-107); CKMB 0.7 U/L (0.0-3.6); CREATINE KINASE 41 UL (21-215); CREATININE - SERUM 0.6 mg/dL (0.6-1.3); GLUCOSE 135 mg/dL (74-106); POTASSIUM - SERUM 3.9 mmol/L (3.5-5.1); PROTEIN - SERUM 6.7 g/dL (6.4-8.2); SODIUM 137 mmol/L (136-145); eGFR NON AFRICAN AMERICAN > 90 mL/min (90-120)
[2018-10-07 04:18] LABS: CALC OSMOLALITY 276 mosm/kg (275-300); TROPONIN-I < 0.017 ng/mL (0.000-0.060); UREA NITROGEN 16 mg/dL (7-18)
--- NOTE | 2018-10-07 08:00 | NUR ---
ASSESSMENT PER FLOW SHEET. PT IS WIHTOUT DISTRESS.CALL LIGHT IN REACH
[2018-10-07 09:49] VITALS: BP 118/54
[2018-10-07 12:15] VITALS: BMI 33.6
[2018-10-07 13:35] VITALS: BP 107/42
--- NOTE | 2018-10-07 18:19 | NUR ---
REMAINS WITHOUT NEEDS,WITHOUT CHANGE.CONT PLAN OF CARE
[2018-10-07 18:20] VITALS: BP 126/55
--- NOTE | 2018-10-07 20:00 | NUR ---
ASSESSMENT PER FLOWSHEET. SALINE LOCK PATENT LEFT HAND. O2 ON 2L/M PER NC. PT SITTING ON SIDE OF BED READING HER BOOK. DENIES NEEDS.
--- NOTE | 2018-10-07 20:30 | NUR ---
MEDS GIVEN PER MAR.
[2018-10-07 21:04] VITALS: BP 126/54
--- NOTE | 2018-10-07 22:45 | NUR ---
RESING QUIETLY DENIES NEEDS.
[2018-10-08] VITALS: BP 145/59
--- NOTE | 2018-10-08 03:30 | NUR ---
MEDS GIVEN PER MAR RESTING QUIETLY DENIES NEEDS.
[2018-10-08 04:30] VITALS: BP 118/48
[2018-10-08 06:41] LABS: BASOPHILS 0 % (0-2); EOSINOPHILS 0 % (0-7); HEMATOCRIT 34.8 % (36.0-48.0); HEMOGLOBIN 11.4 g/dL (12-16); IMMATURE GRANULOCYTES 0.2 % (0-5); LYMPHOCYTES 10.2 % (15-50); MCH 31.4 pg (26.0-34.0); MCHC 32.8 g/dL (31.0-37.0); MCV 95.9 fL (80.0-100.0); MEAN PLATELET VOLUME 12.5 fL (7.4-10.4); MONOCYTES 4.5 % (2-11); NEUTROPHILS 85.1 % (40-80); RBC 3.63 10x6/uL (4.00-5.40); RDW 13.1 % (11.5-14.5)
[2018-10-08 06:49] LABS: ALBUMIN 2.6 g/dL (3.4-5.0); ALKALINE PHOSPHATASE 73 U/L (46-116); ALT (SGPT) 14 U/L (10-68); BILIRUBIN - TOTAL 0.35 mg/dL (0.2-1.3); CALC OSMOLALITY 282 mosm/kg (275-300); CALCIUM 8.5 mg/dL (8.5-10.1); CARBON DIOXIDE 29.6 mmol/L (21.0-32.0); CHLORIDE - SERUM 104 mmol/L (98-107); CREATININE - SERUM 0.6 mg/dL (0.6-1.3); GLUCOSE 131 mg/dL (74-106); SODIUM 140 mmol/L (136-145); UREA NITROGEN 19 mg/dL (7-18); eGFR NON AFRICAN AMERICAN > 90 mL/min (90-120)
[2018-10-08 06:51] LABS: PLATELET COUNT 141 10x3/uL (130-400); WBC 6.5 10x3/uL (4.8-10.8)
[2018-10-08 07:00] VITALS: BP 102/58
[2018-10-08 10:40] LABS: % SATURATION 40 % (15-55); IRON 102 ug/dl (35-150); TOTAL IRON BIND CAPACITY 255 ug/dl (260-445); UNSAT IRON BIND CAPACITY 153 ug/dl (150-375)
[2018-10-08 11:00] VITALS: BP 117/78
--- NOTE | 2018-10-08 16:11 | MORECARE ---
CASE MANAGEMENT DISCHARGE SUMMARY PATIENT: RON ALBERTO UNIT: [id number] ADM DATE: 10/06/18 AGE: 72 : 43 SEX: F ROOM/BED: D.2216 AUTHOR: THERESE KNIGHT PHYSICIAN: REFERRING PHYSICIAN: JOLLY CABAN MD DATE OF SERVICE: 10/08/18 Discharge Plan Patient Name: RON ALBERTO Facility: [facility]:[place] : 1945 Planned Disposition: Home Anticipated Discharge Date: Discharge Date: Expected LOS: Initial Reviewer: [email or web address] Initial Review Date: 10/06/2018 Generated: 10/08/18 5:11 pm DCPIA - Discharge Planning Initial Assessment Updated by [id number]: Judith Luna on 10/08/18 4:10 pm * Is the patient Alert and Oriented? Yes * How many steps to enter\exit or inside your home? * PCP PALMER BAKER * [facility] * Preadmission Environment Home with Family * ADLs Independent * Equipment Nebulizer Oxygen * List name and contact numbers for known caregivers / representatives who currently or will assist patient after discharge: FILIPPO ALBERTO [phone] * Verbal permission to speak to the caregivers and representatives has been obtained from the patient. N/A * Community resources currently utilized None * Additional services required to return to the preadmission environment? No * Can the patient safely return to the preadmission environment? Yes * Has this patient been hospitalized within the prior 30 days at any hospital? No Patient Name: RON ALBERTO Page 40164 at 1611 All edits/amendments must be made on the electronic document DICTATION DATE: 10/08/18 1611 CORK SLABS SAWYER: VELMA 10/08/18 161 RPT#: [id number] DC DATE: STATUS: ADM IN [facility] [address] [place] [address] END OF REPORT
--- NOTE | 2018-10-08 16:19 | MORECARE ---
CASE MANAGEMENT DISCHARGE SUMMARY PATIENT: RON ALBERTO UNIT: [id number] ADM DATE: 10/06/18 AGE: 72 : 43 SEX: F ROOM/BED: D.2216 AUTHOR: THERESE KNIGHT PHYSICIAN: REFERRING PHYSICIAN: JOLLY CABAN MD DATE OF SERVICE: 10/08/18 Discharge Plan Patient Name: RON ALBERTO Facility: [facility]:[place] : 1945 Planned Disposition: Home Anticipated Discharge Date: Discharge Date: Expected LOS: Initial Reviewer: [email or web address] Initial Review Date: 10/06/2018 Generated: 10/08/18 5:19 pm Comments DCP- Discharge Planning Updated by [email or web address]: Judith Luna on 10/08/18 3:[address] Patient Name: RON ALBERTO Admission Status: ER Accout number: [id number] Admission Date: 10-06-2018 : 1945 Admission Diagnosis: Attending: JOLLY CABAN Current LOS: 2 Anticipated DC Date: Planned Disposition: Home Primary Insurance: MEDICARE A & B Discharge Planning Comments: CM met with patient to complete initial dc planning assessment. CM educated patient on the CM role and verbal consent given by patient to complete assessment. Patient lives at home with her son where she is independent with her care. At discharge patient plans to return home and feels this is a safe discharge. CM discussed availability of home health, rehab services, and medical equipment. Patient denied known discharge needs at this time. She does have home O2 and a Nebulizer with MYAH De Luna signed and placed in chart. CM will continue to follow and will assist as needed with dc plans/needs. Pin Attacher: Judith Luna DCPIA - Discharge Planning Initial Assessment Updated by [email or web address]: Judith Luna on 10/08/18 4:10 pm * Is the patient Alert and Oriented? Yes * How many steps to enter\exit or inside your home? * PCP PALMER BAKER * [facility] * Preadmission Environment Home with Family * ADLs Independent * Equipment Nebulizer Oxygen * List name and contact numbers for known caregivers / representatives who currently or will assist patient after discharge: FILIPPO ALBERTO [phone] * Verbal permission to speak to the caregivers and representatives has been obtained from the patient. N/A * Community resources currently utilized None * Additional services required to return to the preadmission environment? No * Can the patient safely return to the preadmission environment? Yes * Has this patient been hospitalized within the prior 30 days at any hospital? No Coverage Notice Reviewer: [id number] Kaleb Luna Notice Issued Date-Time: 10/08/2018 15:40 Notice Type: Patient Choice Letter Notice Delivered To: Patient Relationship to Patient: Warp Coiler Name: Delivery Method: - Gin Days: Prior Verbal Notification: Recipient Understood Notice: Yes Recipient Signature: Yes Med Rec Note Co-signed by Attending: Coverage Notice Comment: Last DP export: 10/08/18 3:11 pm Patient Name: RON ALBERTO Page 54725 at 1619 All edits/amendments must be made on the electronic document DICTATION DATE: 10/08/181617 WEB SEARCH EVALUATOR: VELMA 10/08/181617 RPT#: [id number] DC DATE: STATUS: ADM IN [facility] [address] [place] [address] END OF REPORT
[2018-10-08 17:11] VITALS: BP 111/63
--- NOTE | 2018-10-08 18:05 | NUR ---
REMAINS WITHOUT NEEDS.CONT PLAN OF CARE
--- NOTE | 2018-10-08 20:00 | NUR ---
ASSESSMENT PER FLOWSHEET. O2 ON AT 2L/M PER NC NO DISTRESS. PT SITTING ON SIDE OF BED READING HER BOOK. SALINE LOCK PATENT TO LEFT HAND SITE CLEAR.
[2018-10-08 21:28] VITALS: BP 135/78
--- NOTE | 2018-10-08 21:30 | NUR ---
MEDS GIVEN PER MAR.
--- NOTE | 2018-10-09 | NUR ---
EYES CLOSED RESPIRATIONS WITH EASE AND UNLABORED. PT HAD SMALL STOOL SPECIMEN SENT TO LAB.
[2018-10-09 02:13] VITALS: BP 124/74
--- NOTE | 2018-10-09 03:48 | NUR ---
EYES CLOSED RESPIRATIONS WITH EASE AND UNLABORED MEDS PER JUL.
[2018-10-09 04:50] VITALS: BP 140/68
[2018-10-09 05:28] LABS: BASOPHILS 0 % (0-2); EOSINOPHILS 0 % (0-7); HEMATOCRIT 35.4 % (36.0-48.0); HEMOGLOBIN 11.4 g/dL (12-16); IMMATURE GRANULOCYTES 0.2 % (0-5); LYMPHOCYTES 13.5 % (15-50); MCH 30.7 pg (26.0-34.0); MCHC 32.2 g/dL (31.0-37.0); MCV 95.4 fL (80.0-100.0); MEAN PLATELET VOLUME 13.2 fL (7.4-10.4); MONOCYTES 5.7 % (2-11); NEUTROPHILS 80.6 % (40-80); PLATELET COUNT 140 10x3/uL (130-400); RBC 3.71 10x6/uL (4.00-5.40); RDW 13.2 % (11.5-14.5); WBC 5.4 10x3/uL (4.8-10.8)
[2018-10-09 05:52] LABS: ALBUMIN 2.2 g/dL (3.4-5.0); ALKALINE PHOSPHATASE 64 U/L (46-116); ALT (SGPT) 15 U/L (10-68); BILIRUBIN - TOTAL 0.38 mg/dL (0.2-1.3); CALC OSMOLALITY 282 mosm/kg (275-300); CALCIUM 8.2 mg/dL (8.5-10.1); CARBON DIOXIDE 29.8 mmol/L (21.0-32.0); CHLORIDE - SERUM 105 mmol/L (98-107); CREATININE - SERUM 0.6 mg/dL (0.6-1.3); GLUCOSE 130 mg/dL (74-106); POTASSIUM - SERUM 4.2 mmol/L (3.5-5.1); PROTEIN - SERUM 5.8 g/dL (6.4-8.2); SODIUM 140 mmol/L (136-145); UREA NITROGEN 19 mg/dL (7-18); eGFR NON AFRICAN AMERICAN > 90 mL/min (90-120)
--- NOTE | 2018-10-09 07:30 | NUR ---
PT UP WALKING AROUND ROOM. ALERT AND ORIENTED. PT ON 2L O2, NC WHEN PT KEEPS O2 ON. IV TO LEFT HAND, SL. SITE PATENT WITHOUT REDNESS OR SWELLING. NO C/O PAIN. NO S/S OF ACUTE DISTRESS NOTED. LAB SHOWED POSITIVE FOR OCCULT BLOOD IN STOOL. PT DENIES ANYTHING FURTHER AT THIS TIME. CALL LIGHT IN REACH. WILL CONTINUE TO MONITOR.
[2018-10-09 08:54] VITALS: BP 122/54
[2018-10-09 12:43] VITALS: BP 118/85
[2018-10-09 13:15] LABS: FOLATE (FOLIC ACID) - SERUM >20.0 ng/mL (>3.0)
[2018-10-09 17:05] VITALS: BP 127/77
--- NOTE | 2018-10-09 20:20 | NUR ---
SITTING UP IN BED TALKING TO VISITOR. ALERT AND ORIENTED X4. RESP IRREG. BBS EXP WHEEZES. O2 @ 2L/NC. PROD COUGH WITH CLEAR SPUTUM NOTED. 1+ EDEMA NOTED TO BLE. AMBULATORY. DENIES PAIN. SALINE LOCK NOTED TO LT HAND. SR ELEVATED X2. CL IN REACH.
[2018-10-09 21:27] VITALS: BP 140/68
--- NOTE | 2018-10-09 23:07 | NUR ---
PLACED ON TELEMETRY WHICH SHOWS AFLUTTER WITH RATE OF 130. COREG WAS NOTED TO BE INCREASED TO TID TODAY BUT ORDER WAS PUT IN WITH STARTING TIME FOR TOMORROW AT 1500 BECAUSE THATS WHAT TIME THE ORDER WAS PUT IN TODAY. DOSE TIME CHANGED TO START NOW. ADMINISTERED COREG AT THIS TIME.
[2018-10-10 02:05] VITALS: BP 154/74
--- NOTE | 2018-10-10 02:45 | NUR ---
TELEMETRY SHOWS AFLUTTER WITH RATE OF 68.
[2018-10-10 05:09] LABS: BASOPHILS 0 % (0-2); EOSINOPHILS 0 % (0-7); HEMATOCRIT 36.9 % (36.0-48.0); HEMOGLOBIN 12.2 g/dL (12-16); IMMATURE GRANULOCYTES 0.2 % (0-5); LYMPHOCYTES 16.2 % (15-50); MCH 31.5 pg (26.0-34.0); MCHC 33.1 g/dL (31.0-37.0); MCV 95.3 fL (80.0-100.0); MEAN PLATELET VOLUME 13.2 fL (7.4-10.4); MONOCYTES 5.2 % (2-11); NEUTROPHILS 78.4 % (40-80); PLATELET COUNT 143 10x3/uL (130-400); RBC 3.87 10x6/uL (4.00-5.40); RDW 13.4 % (11.5-14.5)
[2018-10-10 05:26] LABS: ALBUMIN 2.2 g/dL (3.4-5.0); ALKALINE PHOSPHATASE 62 U/L (46-116); BILIRUBIN - TOTAL 0.39 mg/dL (0.2-1.3); CALC OSMOLALITY 281 mosm/kg (275-300); CALCIUM 7.9 mg/dL (8.5-10.1); CARBON DIOXIDE 28.4 mmol/L (21.0-32.0); CHLORIDE - SERUM 104 mmol/L (98-107); CREATININE - SERUM 0.7 mg/dL (0.6-1.3); GLUCOSE 114 mg/dL (74-106); PROTEIN - SERUM 5.8 g/dL (6.4-8.2); SODIUM 139 mmol/L (136-145); UREA NITROGEN 20 mg/dL (7-18); eGFR NON AFRICAN AMERICAN 87 mL/min (90-120)
[2018-10-10 05:28] LABS: ALT (SGPT) 24 U/L (10-68)
[2018-10-10 06:17] VITALS: BP 148/60
--- NOTE | 2018-10-10 07:25 | NUR ---
PT SITTING UP IN BED, ALERT AND ORIENTED. NO C/O PAIN. NO S/S OF ACUTE DISTRESS NOTED. EXPIRATORY WHEEZES ASCULTATED BOTH LUNG ALL LOBES, RLL AND LLL DIMINISHED. PT DENIES ANYTHING FURTHER AT THIS TIME. CALL LIGHT IN REACH. WILL CONTINUE TO MONITOR.
[2018-10-10 10:08] VITALS: BP 126/69
[2018-10-10 13:03] VITALS: BP 107/65
--- NOTE | 2018-10-10 13:56 | NUR ---
I have reviewed this patient and I concur with the Shift Assessment completed by the Licensed Practical Nurse today this shift.
--- NOTE | 2018-10-10 15:43 | NUR ---
THIS NURSE HAS CALLED PHARMACY FOR PATIENT'S FLONASE SEVERAL TIMES. PHARMACY TOLD THIS NURSE THEY WILL BRING IT WHEN THEY CAN.
[2018-10-10 16:58] VITALS: BP 118/54
--- NOTE | 2018-10-10 18:50 | NUR ---
PT SITTING UP IN BED, ALERT AND ORIENTED. NO C/O PAIN. NO S/S OF ACUTE DISTRESS NOTED. CALL LIGHT IN REACH. WILL CONTINUE TO MONITOR.
--- NOTE | 2018-10-10 19:50 | NUR ---
SITTING UP ON SIDE OF BED. ALERT AND ORIENTED X4. RESP IRREG. BBS EXP WHEEZES WITH PROD COUGH WITH CLEAR SPUTUM. 2+ EDEMA NOTED TO RLE. 1+ EDEMA NOTED TO LLE. AMBULATORY. TELEMETRY SHOWS AFLUTTER WITH RATE OF 68. O2 @ 2L/NC. NO DISTRESS. CL IN REACH.
[2018-10-10 21:16] VITALS: BP 138/57
[2018-10-11 00:26] VITALS: BP 124/60
[2018-10-11 05:08] LABS: BASOPHILS 0 % (0-2); EOSINOPHILS 0.7 % (0-7); HEMATOCRIT 35.7 % (36.0-48.0); HEMOGLOBIN 11.6 g/dL (12-16); IMMATURE GRANULOCYTES 0.4 % (0-5); LYMPHOCYTES 38.9 % (15-50); MCH 30.9 pg (26.0-34.0); MCHC 32.5 g/dL (31.0-37.0); MCV 95.2 fL (80.0-100.0); MEAN PLATELET VOLUME 12.2 fL (7.4-10.4); MONOCYTES 9.6 % (2-11); NEUTROPHILS 50.4 % (40-80); PLATELET COUNT 158 10x3/uL (130-400); RBC 3.75 10x6/uL (4.00-5.40); RDW 13.3 % (11.5-14.5); WBC 5.5 10x3/uL (4.8-10.8)
[2018-10-11 05:12] VITALS: BP 140/54
[2018-10-11 05:19] LABS: ALKALINE PHOSPHATASE 53 U/L (46-116); ALT (SGPT) 22 U/L (10-68); BILIRUBIN - TOTAL 0.42 mg/dL (0.2-1.3); CALC OSMOLALITY 280 mosm/kg (275-300); CALCIUM 7.7 mg/dL (8.5-10.1); CARBON DIOXIDE 29.6 mmol/L (21.0-32.0); CHLORIDE - SERUM 105 mmol/L (98-107); CREATININE - SERUM 0.6 mg/dL (0.6-1.3); GLUCOSE 86 mg/dL (74-106); POTASSIUM - SERUM 3.7 mmol/L (3.5-5.1); PROTEIN - SERUM 5.1 g/dL (6.4-8.2); SODIUM 140 mmol/L (136-145); UREA NITROGEN 21 mg/dL (7-18); eGFR NON AFRICAN AMERICAN > 90 mL/min (90-120)
[2018-10-11 08:58] VITALS: BP 112/53
--- NOTE | 2018-10-11 09:00 | NUR ---
ALERT AND ORIENTED X3 WITH EXPIRATORY WHEEZES NOTED X4 POSTERIOR WITH CAP REFILL<3 SEC. TELEMETRY INTACT. DENEIS ANY PAIN OR DISCOMFORT AT THIS TIME. ENCOURAGED TO USE CALL LIGHT FOR ASSIST.
--- NOTE | 2018-10-11 12:36 | MORECARE ---
CASE MANAGEMENT DISCHARGE SUMMARY PATIENT: RON ALBERTO UNIT: [id number] ADM DATE: 10/06/18 AGE: 72 : 43 SEX: F ROOM/BED: D.2216 AUTHOR: THERESE KNIGHT PHYSICIAN: REFERRING PHYSICIAN: JOLLY CABAN MD DATE OF SERVICE: 10/11/18 Discharge Plan Patient Name: RON ALBERTO Facility: [facility]:[place] : 1945 Planned Disposition: Home Anticipated Discharge Date: Discharge Date: Expected LOS: Initial Reviewer: [id number] Initial Review Date: 10/06/2018 Generated: 10/11/18 1:36 pm Comments DCP- Discharge Planning Updated by [email or web address]: Maxine Quigley on 10/11/18 11:[address] CM HAD RESP THERAPY TO OBTAIN O2 SATS AND WALK TEST 10/10/18. RM AIR SAT AT REST- 93% O2 SAT ON RM AIR DURING EXERTION 92% PATIENT DID NOT QUALIFY FOR O2 WITH PORTABILITY. CM ADVISED DR MORTENSEN LAST PM AND THIS AM. POSSIBLE DISCHARGE TO HOME TODAY. PATIENT HAS STATIONARY OXYGEN UNIT AND NEBULIZER AT HOME.. DCP- Discharge Planning Updated by [email or web address]: Judith Luna on 10/08/18 3:[address] Patient Name: RON ALBERTO Admission Status: ER Accout number: [id number] Admission Date: 10-06-2018 : 1945 Admission Diagnosis: Attending: JOLLY CABAN Current LOS: 2 Anticipated DC Date: Planned Disposition: Home Primary Insurance: MEDICARE A & B Discharge Planning Comments: CM met with patient to complete initial dc planning assessment. CM educated patient on the CM role and verbal consent given by patient to complete assessment. Patient lives at home with her son where she is independent with her care. At discharge patient plans to return home and feels this is a safe discharge. CM discussed availability of home health, rehab services, and medical equipment. Patient denied known discharge needs at this time. She does have home O2 and a Nebulizer with MYAH De Luna signed and placed in chart. CM will continue to follow and will assist as needed with dc plans/needs. Printed Circuit Board Designer: Judith Luna DCPIA - Discharge Planning Initial Assessment Updated by [email or web address]: Judith Luna on 10/08/18 4:10 pm * Is the patient Alert and Oriented? Yes * How many steps to enter\exit or inside your home? * PCP PALMER BAKER * [facility]acy [facility] * Preadmission Environment Home with Family * ADLs Independent * Equipment Nebulizer Oxygen * List name and contact numbers for known caregivers / representatives who currently or will assist patient after discharge: FILIPPO ALBERTO [phone] * Verbal permission to speak to the caregivers and representatives has been obtained from the patient. N/A * Community resources currently utilized None * Additional services required to return to the preadmission environment? No * Can the patient safely return to the preadmission environment? Yes * Has this patient been hospitalized within the prior 30 days at any hospital? No Coverage Notice Reviewer: [id number] - Judith Luna Notice Issued Date-Time: 10/08/2018 15:40 Notice Type: Patient Choice Letter Notice Delivered To: Patient Relationship to Patient: Marketing Designer Name: Delivery Method: - Gin Days: Prior Verbal Notification: Recipient Understood Notice: Yes Recipient Signature: Yes Med Rec Note Co-signed by Attending: Coverage Notice Comment: Last DP export: 10/08/18 3:19 pm Patient Name: RON ALBERTO Page 52031 at 1236 All edits/amendments must be made on the electronic document DICTATION DATE: 10/11/18 1236 TERMINAL GAUGER SUPERVISOR: VELMA 10/11/18 1236 RPT#: [id number] GA DATE: STATUS: ADM IN [facility] [address] [place] [address] END OF REPORT
[2018-10-11 13:05] VITALS: BP 114/54
[2018-10-11] MEDS ORDERED: LEVOFLOXACIN500 MG PO (13:34)
[2018-10-11] MEDS ORDERED: PREDNISONE10 MG PO (13:38)
[2018-10-11] MEDS ORDERED: TRELEGY ELLIPT1 EACH INH (16:20)
[2018-10-11] MEDS ORDERED: DALIRESP500 MCG PO (16:20)
[2018-10-11] MEDS ORDERED: Tessalon Perle PO (16:20)
[2018-10-11] MEDS ORDERED: ATROVENT HFA12.9 GM INH (16:50)
--- NOTE | 2018-10-11 17:22 | NUR ---
ANTICIPATED DISCHARGE BUT HR 145 WITH ATRIAL FLUTTER. DISCONTINED DISCHARGWE PER DR MONTANO WITH CARDIOLOGY CONSULT. ENCOURAGED TO USE CALL LIGHT FOR ASSSIT.
[2018-10-11 18:05] VITALS: BP 108/69
--- NOTE | 2018-10-11 18:34 | MORECARE ---
CASE MANAGEMENT DISCHARGE SUMMARY PATIENT: RON ALBERTO UNIT: [id number] ADM DATE: 10/06/18 AGE: 72 : 43 SEX: F ROOM/BED: D.2216 AUTHOR: THERESE KNIGHT PHYSICIAN: REFERRING PHYSICIAN: JOLLY CABAN MD DATE OF SERVICE: 10/11/18 Discharge Plan Patient Name: RON ALBERTO Facility: [facility]:[place] : 1945 Planned Disposition: Home Anticipated Discharge Date: Discharge Date: Expected LOS: Initial Reviewer: [email or web address] Initial Review Date: 10/06/2018 Generated: 10/11/18 7:34 pm Comments DCP- Discharge Planning Updated by [email or web address]: Maxine Quigley on 10/11/18 5:[address] TWO BOXES OF TRELEGY OBTAINED FROM DR MORTENSEN'S OFFICE PROVIDED TO THE TOY DESIGNER FOR THE PATIENT. PATIENT DEVELOPED TACYCARDIA WHILE FLOORS BUFFER ROUNDING. DISCHARGE HELD. DCP- Discharge Planning Updated by [id number]: Maxine Quigley on 10/11/18 11:[address] CM HAD RESP THERAPY TO OBTAIN O2 SATS AND WALK TEST 10/10/18. RM AIR SAT AT REST- 93% O2 SAT ON RM AIR DURING EXERTION 92% PATIENT DID NOT QUALIFY FOR O2 WITH PORTABILITY. CM ADVISED DR MORTENSEN LAST PM AND THIS AM. POSSIBLE DISCHARGE TO HOME TODAY. PATIENT HAS STATIONARY OXYGEN UNIT AND NEBULIZER AT HOME.. DCP- Discharge Planning Updated by [id number]: Judith Luna on 10/08/18 3:[address] Patient Name: RON ALBERTO Admission Status: ER Accout number: [id number] Admission Date: 10-06-2018 : 1945 Admission Diagnosis: Attending: JOLLY CABAN Current LOS: 2 Anticipated DC Date: Planned Disposition: Home Primary Insurance: MEDICARE A & B Discharge Planning Comments: CM met with patient to complete initial dc planning assessment. CM educated patient on the CM role and verbal consent given by patient to complete assessment. Patient lives at home with her son where she is independent with her care. At discharge patient plans to return home and feels this is a safe discharge. CM discussed availability of home health, rehab services, and medical equipment. Patient denied known discharge needs at this time. She does have home O2 and a Nebulizer with MYAH De Luna signed and placed in chart. CM will continue to follow and will assist as needed with dc plans/needs. Boot And Shoe Laborer: Judith Luna DCPIA - Discharge Planning Initial Assessment Updated by [email or web address]: Judith Luna on 10/08/18 4:10 pm * Is the patient Alert and Oriented? Yes * How many steps to enter\exit or inside your home? * PCP PALMER BAKER * [facility]acy [facility] * Preadmission Environment Home with Family * ADLs Independent * Equipment Nebulizer Oxygen * List name and contact numbers for known caregivers / representatives who currently or will assist patient after discharge: FILIPPO ALBERTO [phone] * Verbal permission to speak to the caregivers and representatives has been obtained from the patient. N/A * Community resources currently utilized None * Additional services required to return to the preadmission environment? No * Can the patient safely return to the preadmission environment? Yes * Has this patient been hospitalized within the prior 30 days at any hospital? No Coverage Notice Reviewer: [id number] - Judith Luna Notice Issued Date-Time: 10/08/2018 15:40 Notice Type: Patient Choice Letter Notice Delivered To: Patient Relationship to Patient: Sensor Specialist Name: Delivery Method: - Gin Days: Prior Verbal Notification: Recipient Understood Notice: Yes Recipient Signature: Yes Med Rec Note Co-signed by Attending: Coverage Notice Comment: Reviewer: [email or web address] - Maxine Quigley Notice Issued Date-Time: 10/11/2018 13:30 Notice Type: IM Discharge Notice Notice Delivered To: Patient Relationship to Patient: Self Sensor Specialist Name: Delivery Method: HAND - Hand Delivered Gin Days: Prior Verbal Notification: Recipient Understood Notice: Yes Recipient Signature: Yes Med Rec Note Co-signed by Attending: Coverage Notice Comment: DISCHARGE IMM SERVED Last DP export: 10/11/18 11:36 am Patient Name: RON ALBERTO Page [id number] at 1834 All edits/amendments must be made on the electronic document DICTATION DATE: 10/11/181832 LEARNING AND DEVELOPMENT ASSOCIATE: VELMA 10/11/181832 RPT#: [id number] DC DATE: STATUS: ADM IN [facility] [address] [place] [address] END OF REPORT
[2018-10-11 20:02] VITALS: BP 106/53
--- NOTE | 2018-10-11 20:30 | NUR ---
PT ALERT & ORIENTED. RHONCHI ASCULTATED UPPER AND MIDDLE LOBES. OXYGEN @ 2L/NC. NO OTHER NEEDS. WILL REASSESS AND CONTINUE TO MONITOR.
[2018-10-12 04:39] VITALS: BP 106/56
[2018-10-12 08:09] VITALS: BP 117/62
--- NOTE | 2018-10-12 10:26 | NUR ---
LAERT AND ORIENTED WITH EXPIRATORY WHEEZES NOTED X4 AND CAP REFILL<3 SEC. UP ADLIB AND DENIES ANY PAIN OR DISCOMFORT AT THIS TIME. ENCOURAGED TO USE CALL LIGHT FOR NEEDS.
--- NOTE | 2018-10-12 12:40 | NUR ---
PT'S IV DISCONTINUED AND VERBALIZED UNDERSTANDING OF DISCHARGE INSTRUCTONS. DISCHARGED UNDER THE CARE OF FAMILY. TEMEMETRY DISCONTINUED. STABLE AT TIME OF DSICHARGE.
--- NOTE | 2018-10-12 19:12 | MORECARE ---
CASE MANAGEMENT DISCHARGE SUMMARY PATIENT: RON ALBERTO UNIT: [id number] ADM DATE: 10/06/18 AGE: 72 : 41 SEX: F ROOM/BED: D.2216 AUTHOR: ANTONIADOC PHYSICIAN: REFERRING PHYSICIAN: JOLLY CABAN MD DATE OF SERVICE: 10/12/18 Discharge Plan Patient Name: RON ALBERTO Facility: [facility]:[place] : 1945 Planned Disposition: Home Anticipated Discharge Date: Discharge Date: 10/12/2018 Expected LOS: Initial Reviewer: [email or web address] Initial Review Date: 10/06/2018 Generated: 10/12/18 8:11 pm Comments DCP- Discharge Planning Updated by [email or web address]: Maxine Quigley on 10/11/18 5:[address] TWO BOXES OF TRELEGY OBTAINED FROM DR MORTENSEN'S OFFICE PROVIDED TO THE DOPE MAINTENANCE WORKER FOR THE PATIENT. PATIENT DEVELOPED TACYCARDIA WHILE INTERFACE DEVELOPER ROUNDING. DISCHARGE HELD. DCP- Discharge Planning Updated by [email or web address]: Maxine Quigley on 10/11/18 11:[address] CM HAD RESP THERAPY TO OBTAIN O2 SATS AND WALK TEST 10/10/18. RM AIR SAT AT REST- 93% O2 SAT ON RM AIR DURING EXERTION 92% PATIENT DID NOT QUALIFY FOR O2 WITH PORTABILITY. CM ADVISED DR MORTENSEN LAST PM AND THIS AM. POSSIBLE DISCHARGE TO HOME TODAY. PATIENT HAS STATIONARY OXYGEN UNIT AND NEBULIZER AT HOME.. DCP- Discharge Planning Updated by [email or web address]: Judith Luna on 10/08/18 3:[address] Patient Name: RON ALBERTO Admission Status: ER Accout number: [id number] Admission Date: 10-06-2018 : 1945 Admission Diagnosis: Attending: JOLLY CABAN Current LOS: 2 Anticipated DC Date: Planned Disposition: Home Primary Insurance: MEDICARE A & B Discharge Planning Comments: CM met with patient to complete initial dc planning assessment. CM educated patient on the CM role and verbal consent given by patient to complete assessment. Patient lives at home with her son where she is independent with her care. At discharge patient plans to return home and feels this is a safe discharge. CM discussed availability of home health, rehab services, and medical equipment. Patient denied known discharge needs at this time. She does have home O2 and a Nebulizer with MYAH De Luna signed and placed in chart. CM will continue to follow and will assist as needed with dc plans/needs. Provider Scribe: Judith Luna DCPIA - Discharge Planning Initial Assessment Updated by [email or web address]: Judith Luna on 10/08/18 4:10 pm * Is the patient Alert and Oriented? Yes * How many steps to enter\exit or inside your home? * PCP PALMER BAKER * Pharmacy [facility] * Preadmission Environment Home with Family * ADLs Independent * Equipment Nebulizer Oxygen * List name and contact numbers for known caregivers / representatives who currently or will assist patient after discharge: FILIPPO ALBERTO [phone] * Verbal permission to speak to the caregivers and representatives has been obtained from the patient. N/A * Community resources currently utilized None * Additional services required to return to the preadmission environment? No * Can the patient safely return to the preadmission environment? Yes * Has this patient been hospitalized within the prior 30 days at any hospital? No Coverage Notice Reviewer: [id number] - Judith Luna Notice Issued Date-Time: 10/08/2018 15:40 Notice Type: Patient Choice Letter Notice Delivered To: Patient Relationship to Patient: Power Originator Name: Delivery Method: - Gin Days: Prior Verbal Notification: Recipient Understood Notice: Yes Recipient Signature: Yes Med Rec Note Co-signed by Attending: Coverage Notice Comment: Reviewer: [id number] - Maxine Quigley Notice Issued Date-Time: 10/11/2018 13:30 Notice Type: IM Discharge Notice Notice Delivered To: Patient Relationship to Patient: Self Power Originator Name: Delivery Method: HAND - Hand Delivered Gin Days: Prior Verbal Notification: Recipient Understood Notice: Yes Recipient Signature: Yes Med Rec Note Co-signed by Attending: Coverage Notice Comment: DISCHARGE IMM SERVED Last DP export: 10/11/18 5:34 pm Patient Name: RON ALBERTO Page 51778 at 1912 All edits/amendments must be made on the electronic document DICTATION DATE: 10/12/181910 SALES DEPARTMENT SUPERVISOR: VELMA 10/12/181910 RPT#: [id number] DC DATE:10/12/18 STATUS: DIS IN [facility] [address] [place] [address] END OF REPORT
--- NOTE | 2018-10-14 12:08 | CN ---
PATIENT NAME:RON ALBERTO MEDICAL RECORD: [id number] : 41 LOCATION:D.[facility] ADMIT DATE: 10/06/18 ACCOUNT: [id number] CONSULTING PHYSICIAN: RYLAN THOMAS MD REFERRING PHYSICIAN: JOLLY CABAN MD DATE OF CONSULTATION: HISTORY OF PRESENT ILLNESS: A 72-year-old female with a known history of coronary artery disease. She reports a somewhat vague history of atrial fibrillation in the past, was treated medically for a short period of time, unsure of the medication, this was [facility], was admitted with upper respiratory tract infection, COPD exacerbation, does have underlying COPD. She was noted to have atrial fibrillation/flutter with variable response. She has been started on carvedilol with improvement in her rates at this point. We are asked to see her concerning her cardiovascular status. No known history of coronary artery disease, no known history of cardiomyopathy. PAST MEDICAL HISTORY: Includes: 1. History of hypertension. 2. Obstructive pulmonary disease. 3. Questionable history of atrial fibrillation. ALLERGIES: ROCEPHIN. MEDICATIONS: Prior to admission included Levaquin 500 every day, Atrovent metered dose inhaler, aspirin 325 every day, Lasix 40 every day, potassium supplementation, Singulair 10 at bedtime, Trelegy Ellipta one puff b.i.d., and prednisone 10 mg p.o. every day. SOCIAL HISTORY: Continues to smoke about 1/2-3/4 pack a day. Lives with son, good family support. Easily takes care of ADLs. REVIEW OF SYSTEMS: The patient reports easy bruising but reports no swollen glands. The patient reports no fever, no night sweats, no significant weight gain, no significant weight loss. No significant exercise tolerance. The patient reports no dry eyes, no irritation, no vision change. Patient reports no difficulty hearing and no ear pain. Patient reports no frequent nose bleeds or nose and sinus problems. Patient reports on arm pain on exertion. No shortness of breath while lying down. No history of heart murmur. Patient reports no cough, no wheezing or coughing up blood. Patient reports no abdominal pain, no vomiting. Normal appetite. No diarrhea and not vomiting blood. No nausea and no constipation. Patient reports no incontinence. No difficulty urinating. No hematuria. No increased frequency. Patient reports no muscle aches. No weakness, no arthralgias, no back pain. No swelling of the extremities. Patient reports no abnormal mole, no jaundice, no rashes. Reports no loss of consciousness. No weakness and no numbness. No seizures, dizziness, or headaches. The patient reports no depression, no sleep disturbance, feeling safe in a relationship and no alcohol abuse. Patient reports on fatigue. Reports no runny nose or sinus pressure. No itching, no hives, and no frequent sneezing. PHYSICAL EXAMINATION: GENERAL: Pleasant female in no acute distress. VITAL SIGNS: 117/62, pulse 75 and regular. HEENT: Normocephalic, atraumatic. CONSULT REPORT [id number] RON ALBERTO NECK: No bruits noted. HEART: Irregular, rate is controlled. Questionable S3 gallop. LUNGS: Prolonged respiratory phase with few expiratory wheezes. ABDOMEN: Soft, nontender. EXTREMITIES: Pulses 2+. No edema. DIAGNOSTIC DATA: ECG shows atrial fibrillation. IMPRESSION: At this point in time, rate appears to be controlled. Uncertain of his chronic atrial fibrillation or exacerbates due to underlying chronic obstructive pulmonary disease exacerbation, increased catacholmine drive, steroids, etc. At this point in time, strive for rate control. Given her history of anemia and iron deficiency and possible GI blood loss as well as appointment with Dr. Abraham in the near future, I would not begin DOAC at this point. We will see her back in the office 3-4 weeks, clear her from GI. I would start anticoagulation at that time. TRANSINT:[id number] Voice Confirmation ID: [id number] DOCUMENT ID: [id number] RYLAN THOMAS MD at 1208 CC: [id number] DICTATION DATE: 10/12/18 1253 DUPLICATING MACHINE SERVICER: 10/12/18 2148 DIS IN 10/12/18 [address] [place] [address]
== END 2018-10-12 12:40 | disposition home or self-care (01) | DRG 177 ==
LOC: D.ER 08:21 → D.MS 11:09
PROVIDERS: Emergency Medicine; Internal Medicine Nephrology; ADMIT Family Medicine; ATTEND Family Medicine
DX: J15.6 Pneumonia due to other Gram-negative bacteria (principal); J96.21 Acute and chronic respiratory failure with hypoxia; J44.0 Chronic obstructive pulmonary disease with (acute) lower respiratory infection; J44.1 Chronic obstructive pulmonary disease with (acute) exacerbation; F17.213 Nicotine dependence, cigarettes, with withdrawal; R04.2 Hemoptysis; J98.11 Atelectasis; D61.818 Other pancytopenia; J13 Pneumonia due to Streptococcus pneumoniae; Z99.81 Dependence on supplemental oxygen; J45.909 Unspecified asthma, uncomplicated; I48.91 Unspecified atrial fibrillation; J30.9 Allergic rhinitis, unspecified; I27.20 Pulmonary hypertension, unspecified; K04.7 Periapical abscess without sinus; K57.90 Diverticulosis of intestine, part unspecified, without perforation or abscess without bleeding; K42.9 Umbilical hernia without obstruction or gangrene; Z86.73 Personal history of transient ischemic attack (TIA), and cerebral infarction without residual deficits

== ENCOUNTER → 2019-04-09 12:11 | Outpatient (CLI) | payer MEDICARE, BC ==
[~2019-04-09 12:11] MED LIST changes: +ATROVENT HFA12.9 GM INH; +LEVOFLOXACIN500 MG PO; +TRELEGY ELLIPT1 EACH INH; +Tessalon Perle PO
== END | disposition home or self-care (01) ==
LOC: D.RAD 02-19 10:45 → D.RT 02-19 11:00 → D.RAD 02-25 08:00
PROVIDERS: ATTEND Internal Medicine Pulmonary Disease
DX: J44.9 Chronic obstructive pulmonary disease, unspecified (principal)

== ENCOUNTER → 2019-05-12 09:14 | Outpatient (CLI) | payer MEDICARE, BC | END | disposition home or self-care (01) | LOC: D.RT 09:14 | PROVIDERS: ATTEND Internal Medicine Pulmonary Disease | DX: J44.9 Chronic obstructive pulmonary disease, unspecified (principal) ==

== ENCOUNTER 2019-05-28 11:44 | Emergency (ER) | payer MEDICARE, BC ==
[~2019-05-28] VITALS: Ht 160 cm; Wt 85.9 kg
[2019-05-28 11:51] VITALS: BP 118/79; Ht 160 cm; Wt 85.9 kg
[2019-05-28 12:14] LABS: BASOPHILS 0.1 % (0-2); EOSINOPHILS 0.5 % (0-7); HEMATOCRIT 40.1 % (36.0-48.0); HEMOGLOBIN 13.1 g/dL (12-16); IMMATURE GRANULOCYTES 0.1 % (0-5); MCH 32.3 pg (26.0-34.0); MCHC 32.7 g/dL (31.0-37.0); MCV 98.8 fL (80.0-100.0); MONOCYTES 7.5 % (2-11); NEUTROPHILS 83.8 % (40-80); RBC 4.06 10x6/uL (4.00-5.40); RDW 13.7 % (11.5-14.5); WBC 7.6 10x3/uL (4.8-10.8)
[2019-05-28 12:17] LABS: PLATELET COUNT 198 10x3/uL (130-400)
[2019-05-28 12:25] LABS: APTT 33.5 SECONDS (22.8-39.4); INR 1.13 (0.85-1.17); PROTIME 14.5 SECONDS (11.6-15.0)
[2019-05-28 12:26] LABS: CALC OSMOLALITY 269 mosm/kg (275-300); CALCIUM 8.5 mg/dL (8.5-10.1); CARBON DIOXIDE 36.1 mmol/L (21.0-32.0); CHLORIDE - SERUM 97 mmol/L (98-107); CREATININE - SERUM 0.6 mg/dL (0.6-1.3); GLUCOSE 100 mg/dL (74-106); POTASSIUM - SERUM 3.4 mmol/L (3.5-5.1); SODIUM 135 mmol/L (136-145); UREA NITROGEN 13 mg/dL (7-18); eGFR NON AFRICAN AMERICAN > 90 mL/min (90-120)
[2019-05-28 12:43] LABS: ALBUMIN 2.5 g/dL (3.4-5.0); ALKALINE PHOSPHATASE 100 U/L (46-116); ALT (SGPT) 19 U/L (10-68); CKMB 0.5 U/L (0.0-3.6); CREATINE KINASE 30 UL (21-215); PRO BNP 512 pg/mL (0-450); PROTEIN - SERUM 6.2 g/dL (6.4-8.2); TROPONIN-I < 0.017 ng/mL (0.000-0.060)
[2019-05-28] MEDS ORDERED: MUCINEX DM ER1 EAC1 PO (13:44)
[2019-05-28] MEDS ORDERED: STERAPRED DS 1010 MG PO (13:44)
[2019-05-28] MEDS ORDERED: LEVAQUIN750 MG PO (13:44)
== END 2019-05-28 14:50 | disposition home or self-care (01) ==
LOC: D.ER 11:44
PROVIDERS: Emergency Medicine
DX: J18.9 Pneumonia, unspecified organism (principal); J44.9 Chronic obstructive pulmonary disease, unspecified; R06.02 Shortness of breath

== ENCOUNTER 2019-05-30 08:59 | Inpatient (IN) | payer MEDICARE, BC ==
[2019-05-30] VITALS (10 sets, daily range): BP systolic 105–125; BP diastolic 49–89; Ht 160 cm; Wt 95.7 kg
[~2019-05-30] VITALS: Ht 160 cm; Wt 95.7 kg
[~2019-05-30 08:59] MED LIST changes: +MUCINEX DM ER1 EAC1 PO; +STERAPRED DS 1010 MG PO
[2019-05-30 09:32] LABS: BASOPHILS 0.1 % (0-2); EOSINOPHILS 0.1 % (0-7); HEMATOCRIT 37.5 % (36.0-48.0); HEMOGLOBIN 12.3 g/dL (12-16); IMMATURE GRANULOCYTES 0.2 % (0-5); LYMPHOCYTES 10.6 % (15-50); MCH 32.1 pg (26.0-34.0); MCHC 32.8 g/dL (31.0-37.0); MCV 97.9 fL (80.0-100.0); MEAN PLATELET VOLUME 12.3 fL (7.4-10.4); MONOCYTES 8.9 % (2-11); NEUTROPHILS 80.1 % (40-80); PLATELET COUNT 302 10x3/uL (130-400); RBC 3.83 10x6/uL (4.00-5.40); RDW 13.6 % (11.5-14.5); WBC 8.7 10x3/uL (4.8-10.8)
[2019-05-30 09:39] LABS: CALC OSMOLALITY 270 mosm/kg (275-300); CALCIUM 8.1 mg/dL (8.5-10.1); CARBON DIOXIDE 31.6 mmol/L (21.0-32.0); CHLORIDE - SERUM 98 mmol/L (98-107); CREATININE - SERUM 0.6 mg/dL (0.6-1.3); GLUCOSE 92 mg/dL (74-106); POTASSIUM - SERUM 4.7 mmol/L (3.5-5.1); SODIUM 134 mmol/L (136-145); UREA NITROGEN 20 mg/dL (7-18); eGFR NON AFRICAN AMERICAN > 90 mL/min (90-120)
[2019-05-30 09:39] LABS: APPEARANCE CLEAR (CLEAR); BILIRUBIN NEGATIVE (NEGATIVE); COLOR YELLOW (YELLOW); GLUCOSE NEGATIVE (NEGATIVE); KETONE NEGATIVE (NEGATIVE); NITRITE NEGATIVE (NEGATIVE); PROTEIN NEGATIVE (NEGATIVE); UROBILINOGEN NORMAL (NORMAL)
[2019-05-30 09:47] LABS: ALBUMIN 2.3 g/dL (3.4-5.0); ALKALINE PHOSPHATASE 82 U/L (46-116); ALT (SGPT) 20 U/L (10-68); AMYLASE - SERUM 30 U/L (25-115); BILIRUBIN - TOTAL 0.51 mg/dL (0.2-1.3); LIPASE 66 U/L (73-393)
[2019-05-30 09:48] LABS: TROPONIN-I < 0.017 ng/mL (0.000-0.060)
--- NOTE | 2019-05-30 10:30 | NUR ---
PT AWAKE AND ALERT, AMBULATORY TO RESTROOM WITH STEADY GAIT, RETURNED TO ER STRETCHER, NAD NOTED, VS MONITORING RE-ESTABLISHED, DENIES NEEDS AT THIS TIME, WILL MONITOR.
--- NOTE | 2019-05-30 11:30 | NUR ---
PT TRANSPORTED TO RADIOLOGY DEPARTMENT VIA STRETCHER IN STABLE CONDITION AT THIS TIME.
--- NOTE | 2019-05-30 11:42 | NUR ---
PT RETURNED TO ROOM IN STABLE CONDITION FROM RADIOLOGY DEPARTMENT, VS MONITORING RE-ESTABLISHED, REQUESTS WATER, ER PROVIDER ORDERS ARE NPO UNTIL ADMIT/DISCHARGE DECISION MADE, NO OTHER REQUESTS, WILL CONTINUE TO MONITOR.
--- NOTE | 2019-05-30 12:55 | NUR ---
PT WAS GIVEN WATER, CLEAR LIQUID TRAY ORDERED, PT INFORMED OF INPATIENT BED SHORTAGE, CALL LIGHT IS IN REACH, SHE HAS A FRIEND AT THE BEDSIDE, VS ARE STABLE, HR 71 SR, NAD NOTED, WILL CONTINUE TO MONITOR UNTIL INPATIENT BED AVAILABLE.
--- NOTE | 2019-05-30 14:03 | MORECARE ---
CASE MANAGEMENT DISCHARGE SUMMARY PATIENT: RON CHOE UNIT: [id number] ADM DATE: 05/30/19 AGE: 73 : 43 SEX: F ROOM/BED: D.4649 AUTHOR: ANTONIADOC PHYSICIAN: REFERRING PHYSICIAN: BRIANNE MCNAMARA MD DATE OF SERVICE: 05/30/19 Discharge Plan Patient Name: RON CHOE Facility: [facility]:[place] : 1945 Planned Disposition: Anticipated Discharge Date: Discharge Date: Expected LOS: Initial Reviewer: [email or web address] Initial Review Date: 05/30/2019 Generated: 05/30/19 3:03 pm Comments DCP- Discharge Planning Updated by [email or web address]: Mary Mayo on 05/30/19 12:[address] CM met with patient to discuss initial discharge planning. Patient is in agreement to proceed with the assessment with her friend present. Patient reports that she lives at home independently, alone. Patient is alert/oriented. Stairs/steps: 4-5 w/rails. PCP: Dr. Maria Luisa Steele. Pharmacy: [facility] (by [facility]). Patient states she has been able to obtain all of their prescribed medications. HHS: No. DME: Updraft machine, O2 @[facility]. Patient gives permission to speak with family members/friend. Emergency contact: Dung Choe (son) [phone] (lives in [facility]) and Nancy Timmons (friend) [phone]. Patient is Independent with all ADL's, medication management HERBICIDE SPRAYER. CM discussed the availability of HH, Rehab, DME services. Patient denies the need for additional services at this time and feels safe returning to previous environment. Patient denies being hospitalized within the past 30 days. Patient denies the use of community resources HERBICIDE SPRAYER. Transportation at time of discharge: Nancy Timmons. CM will assist PRN with any dc needs/plans. DCPIA - Discharge Planning Initial Assessment Updated by [email or web address]: Mary Mayo on 05/30/19 1:58 pm * Is the patient Alert and Oriented? Yes * How many steps to enter\exit or inside your home? 4-5 w/rail * PCP Dr. Maria Luisa Steele * Pharmacy [facility] to [address] * Preadmission Environment Home Alone * ADLs Independent * Equipment Nebulizer Oxygen Shower Chair * Other Equipment NA * List name and contact numbers for known caregivers / representatives who currently or will assist patient after discharge: Dung Choe (son) [phone] lives in [facility] friend) [phone] * Verbal permission to speak to the caregivers and representatives has been obtained from the patient. Yes * Community resources currently utilized None * Additional services required to return to the preadmission environment? No * Can the patient safely return to the preadmission environment? Yes * Has this patient been hospitalized within the prior 30 days at any hospital? No Patient Name: RON CHOE Page 84744 at 1403 All edits/amendments must be made on the electronic document DICTATION DATE: 05/30/19 1403 HUMAN RESOURCES OFFICE MANAGER: VELMA 05/30/19 1403 RPT#: [id number] DC DATE: STATUS: ADM IN [facility] [address] [place] [address] END OF REPORT
--- NOTE | 2019-05-30 14:47 | NUR ---
REPORT CALLED TO ASHWIN HAM AT THIS TIME, SHE WILL NOTIFY WHEN ROOM IS CLEAN AND READY.
--- NOTE | 2019-05-30 14:55 | NUR ---
QUINCY COMPLETED AT THIS TIME.
--- NOTE | 2019-05-30 16:04 | NUR ---
VANCOMYCIN INFUSION COMPLETED AT 1600
--- NOTE | 2019-05-30 16:06 | NUR ---
ROOM 2118 ASSIGNED AT 1400 ROOM READY AT THIS TIME.
--- NOTE | 2019-05-30 17:30 | MORECARE ---
CASE MANAGEMENT DISCHARGE SUMMARY PATIENT: RON CHOE UNIT: [id number] ADM DATE: 05/30/19 AGE: 73 : 43 SEX: F ROOM/BED: D.9319 AUTHOR: ANTONIADOC PHYSICIAN: REFERRING PHYSICIAN: BRIANNE MCNAMARA MD DATE OF SERVICE: 05/30/19 Discharge Plan Patient Name: RON CHOE Facility: [facility]:[place] : 1945 Planned Disposition: Home Anticipated Discharge Date: Discharge Date: Expected LOS: 0 Initial Reviewer: [email or web address] Initial Review Date: 05/30/2019 Generated: 05/30/19 6:29 pm DCP- Discharge Planning Updated by [email or web address]: Mary Mayo on 05/30/19 12:[address] CM met with patient to discuss initial discharge planning. Patient is in agreement to proceed with the assessment with her friend present. Patient reports that she lives at home independently, alone. Patient is alert/oriented. Stairs/steps: 4-5 w/rails. PCP: Dr. Maria Luisa Steele. Pharmacy: [facility] ([facility] [address] Patient states she has been able to obtain all of their prescribed medications. HHS: No. DME: Updram[employer]ie machine, O2 @[facility]. Patient gives permission to speak with family members/friend. Emergency contact: Dung Choe (son) [phone] (lives in [facility]) and Nancy Timmons (friend) [phone]. Patient is Independent with all ADL's, medication management DATABASE MANAGEMENT SYSTEM SPECIALIST. CM discussed the availability of HH, Rehab, DME services. Patient denies the need for additional services at this time and feels safe returning to previous environment. Patient denies being hospitalized within the past 30 days. Patient denies the use of community resources DATABASE MANAGEMENT SYSTEM SPECIALIST. Transportation at time of discharge: Nancy Timmons. CM will assist PRN with any dc needs/plans. DCPIA - Discharge Planning Initial Assessment Updated by [id number]: Mary Mayo on 05/30/19 1:58 pm * Is the patient Alert and Oriented? Yes * How many steps to enter\exit or inside your home? 4-5 w/rail * PCP Dr. Maria Luisa Steele * Pharmacy [facility] to [address] * Preadmission Environment Home Alone * ADLs Independent * Equipment Nebulizer Oxygen Shower Chair * Other Equipment NA * List name and contact numbers for known caregivers / representatives who currently or will assist patient after discharge: Dung Choe (son) [phone] [place] [facility] friend[place] [phone] * Verbal permission to speak to the caregivers and representatives has been obtained from the patient. Yes * Community resources currently utilized None * Additional services required to return to the preadmission environment? No * Can the patient safely return to the preadmission environment? Yes * Has this patient been hospitalized within the prior 30 days at any hospital? No Last DP export: 05/30/19 1:03 p Patient Name: RON CHOE Page [id number] at 1730 All edits/amendments must be made on the electronic document DICTATION DATE: 05/30/191728 CARPET CUTTER: VELMA 05/30/191728 RPT#: [id number] DC DATE: STATUS: ADM IN [facility] [address] [place] [address] END OF REPORT
--- NOTE | 2019-05-30 20:31 | NUR ---
REPORT AND INITIAL ROUNDS COMPLETED. PT RESTING IN BED. NO DISTRESS. CPOC.
--- NOTE | 2019-05-30 21:37 | NUR ---
BEDTIME MEDS GIVEN. MIRALAX GIVEN. PT COUGHING/PRODUCTIVE SOUNDING BUT CANNOT GET IT UP.
--- NOTE | 2019-05-30 21:40 | NUR ---
NOTIFIED RT THAT PT IS NEEDING HER BREATHING TREATMENTS.
[2019-05-31] VITALS (7 sets, daily range): BP systolic 93–137; BP diastolic 50–68
--- NOTE | 2019-05-31 02:35 | NUR ---
RESTING WITH EYES CLOSED. 67/FLUTTER PER TELEMETRY. IV ABT INFUSING. CPOC.
[2019-05-31 05:42] LABS: BASOPHILS 0 % (0-2); EOSINOPHILS 0 % (0-7); HEMATOCRIT 38.7 % (36.0-48.0); HEMOGLOBIN 12.5 g/dL (12-16); IMMATURE GRANULOCYTES 0.2 % (0-5); LYMPHOCYTES 10.4 % (15-50); MCH 32.2 pg (26.0-34.0); MCHC 32.3 g/dL (31.0-37.0); MCV 99.7 fL (80.0-100.0); MEAN PLATELET VOLUME 11.7 fL (7.4-10.4); MONOCYTES 2.7 % (2-11); NEUTROPHILS 86.7 % (40-80); PLATELET COUNT 291 10x3/uL (130-400); RBC 3.88 10x6/uL (4.00-5.40); RDW 13.8 % (11.5-14.5)
[2019-05-31 05:50] LABS: WBC 5.5 10x3/uL (4.8-10.8)
[2019-05-31 06:16] LABS: ALBUMIN 2.1 g/dL (3.4-5.0); ALKALINE PHOSPHATASE 72 U/L (30-120); ALT (SGPT) 16 U/L (10-68); CALC OSMOLALITY 275 mosm/kg (275-300); CARBON DIOXIDE 30.9 mmol/L (21.0-32.0); CHLORIDE - SERUM 101 mmol/L (98-107); CREATININE - SERUM 0.7 mg/dL (0.6-1.3); GLUCOSE 139 mg/dL (74-106); POTASSIUM - SERUM 4.2 mmol/L (3.5-5.1); PROTEIN - SERUM 5.9 g/dL (6.4-8.2); SODIUM 136 mmol/L (136-145); UREA NITROGEN 17 mg/dL (7-18); eGFR NON AFRICAN AMERICAN 86 mL/min (90-120)
--- NOTE | 2019-05-31 18:27 | NUR ---
20 GAUGE IV PLACED TO RIGHT HAND X 1 STICK. GOOD BLOOD RETURN, EASY FLUSH. TAPED, DATED, AND SECURED. TOLERATED IV PLACEMENT WELL. 2ND IV NEEDED FOR CT IMAGING.
--- NOTE | 2019-05-31 20:00 | NUR ---
REPORT RECIEVED AND INITIAL ROUNDS COMPLETED. TELEMETRY 74/FLUTTER. O2 @ 2L/NC. IV TO RIGHT WRIST THAT WAS JUST USED FOR CTA THAT WAS DONE AT 1900. IV TO LFA USED FOR ABT. CURRENTLY VISITING WITH FRIEND IN ROOM. CALL LIGHT IN REACH.
--- NOTE | 2019-05-31 21:48 | NUR ---
BEDTIME MEDS GIVEN. MIRALAX GIVEN. PT STATES SHE STILL FEELS CONSTIPATED, BUT IS HAVING SMALL STOOLS DURING THE DAY.
--- NOTE | 2019-06-01 04:36 | NUR ---
RESTING WITH NO DISTRSS. 68/FLUTTER. IVF AT [facility]. CALL LIGHT IN REACH. CPOC.
[2019-06-01 04:59] VITALS: BP 120/62
[2019-06-01 05:13] LABS: BASOPHILS 0 % (0-2); EOSINOPHILS 0 % (0-7); HEMATOCRIT 38.8 % (36.0-48.0); HEMOGLOBIN 12.4 g/dL (12-16); IMMATURE GRANULOCYTES 0.5 % (0-5); LYMPHOCYTES 9.6 % (15-50); MCH 31.8 pg (26.0-34.0); MCV 99.5 fL (80.0-100.0); NEUTROPHILS 86.9 % (40-80); PLATELET COUNT 307 10x3/uL (130-400); RDW 13.7 % (11.5-14.5)
[2019-06-01 05:20] LABS: WBC 7.3 10x3/uL (4.8-10.8)
[2019-06-01 05:25] LABS: CALC OSMOLALITY 279 mosm/kg (275-300); CALCIUM 8.1 mg/dL (8.5-10.1); CARBON DIOXIDE 33.1 mmol/L (21.0-32.0); CHLORIDE - SERUM 104 mmol/L (98-107); CREATININE - SERUM 0.7 mg/dL (0.6-1.3); GLUCOSE 151 mg/dL (74-106); MAGNESIUM - SERUM 2.2 mg/dL (1.8-2.4); POTASSIUM - SERUM 4.4 mmol/L (3.5-5.1); SODIUM 137 mmol/L (136-145); UREA NITROGEN 20 mg/dL (7-18); eGFR NON AFRICAN AMERICAN 86 mL/min (90-120)
--- NOTE | 2019-06-01 07:15 | NUR ---
RECEIVED PT IN BED AAOX4 RESP UNLABORED SKIN W/D COLOR WNL NAD NOTED PT DENIES ANY NEEDS OR PAIN AT THIS TIME
[2019-06-01 09:50] VITALS: BP 129/61
[2019-06-01 14:15] VITALS: BP 127/60
[2019-06-01 18:32] VITALS: BP 157/73
[2019-06-01 20:00] VITALS: BP 134/74
--- NOTE | 2019-06-01 20:00 | NUR ---
REPORT RECIEVED AND INITIAL ROUNDS COMPLETED. PT RESTING IN BED. NS @ [facility] INFUSING TO LFA. ALSO HAS SALINE LOCK PIV TO RIGHT HAND. O2 @ 2L/NC. FLUTTER/75 PER TELEMETRY. NO DISTRESS. CPOC. CALL LIGHT IN REACH.
[2019-06-02] VITALS: BP 116/51
[2019-06-02 04:00] VITALS: BP 132/68
[2019-06-02 06:15] LABS: BASOPHILS 0 % (0-2); EOSINOPHILS 0 % (0-7); HEMATOCRIT 38.8 % (36.0-48.0); HEMOGLOBIN 12.5 g/dL (12-16); IMMATURE GRANULOCYTES 1.6 % (0-5); LYMPHOCYTES 8.1 % (15-50); MCH 32.2 pg (26.0-34.0); MCHC 32.2 g/dL (31.0-37.0); MEAN PLATELET VOLUME 11.5 fL (7.4-10.4); MONOCYTES 7.7 % (2-11); NEUTROPHILS 82.6 % (40-80); RBC 3.88 10x6/uL (4.00-5.40); RDW 13.8 % (11.5-14.5)
[2019-06-02 06:44] LABS: CALC OSMOLALITY 279 mosm/kg (275-300); CARBON DIOXIDE 35.2 mmol/L (21.0-32.0); CHLORIDE - SERUM 102 mmol/L (98-107); CREATININE - SERUM 0.7 mg/dL (0.6-1.3); GLUCOSE 120 mg/dL (74-106); MAGNESIUM - SERUM 2.2 mg/dL (1.8-2.4); POTASSIUM - SERUM 4.2 mmol/L (3.5-5.1); SODIUM 138 mmol/L (136-145); UREA NITROGEN 20 mg/dL (7-18); VANCOMYCIN - TROUGH 15.9 ug/mL (10.0-20.0); eGFR NON AFRICAN AMERICAN 86 mL/min (90-120)
[2019-06-02 06:59] LABS: PLATELET COUNT 426 10x3/uL (130-400); WBC 9.7 10x3/uL (4.8-10.8)
[2019-06-02 09:54] VITALS: BP 143/83
[2019-06-02 13:00] VITALS: BP 121/61
--- NOTE | 2019-06-02 15:37 | NUR ---
Rehab Note- Acute INpatient Rehab prescreen order received. Per PT & OT Evals the patient is independent with no skilled needs for therapy. Thank you for this referral! Eli La RN Clinical Liaison, [facility] Rehab
[2019-06-02 16:51] VITALS: BP 114/85
--- NOTE | 2019-06-02 19:10 | NUR ---
RECEIVED BEDSIDE REPORT. PATIENT IS ALERT AND ORIENTED, RESTING COMFORTABLY IN BED. RESPIRATIONS ARE EVEN AND [id number]. NO S/S OF DISTRESS. NO C/O PAIN. CALL LIGHT WITHIN REACH. WILL CPOC.
[2019-06-02 20:44] VITALS: BP 148/68
[2019-06-03 00:11] VITALS: BP 131/56
--- NOTE | 2019-06-03 00:58 | NUR ---
PATIENT RESTING COMFORTABLY IN BED. RESPIRATIONS ARE EVEN AND UNLABORED. NO S/S OF DISTRESS. NO C/O PAIN. CALL LIGHT WITHIN REACH. WILL CPOC.
[2019-06-03 03:55] VITALS: BP 130/68
[2019-06-03 05:17] LABS: BASOPHILS 0 % (0-2); EOSINOPHILS 0 % (0-7); HEMATOCRIT 39.4 % (36.0-48.0); HEMOGLOBIN 12.8 g/dL (12-16); IMMATURE GRANULOCYTES 2.5 % (0-5); LYMPHOCYTES 6.9 % (15-50); MCH 31.8 pg (26.0-34.0); MCHC 32.5 g/dL (31.0-37.0); MEAN PLATELET VOLUME 11.5 fL (7.4-10.4); MONOCYTES 2.7 % (2-11); NEUTROPHILS 87.9 % (40-80); PLATELET COUNT 380 10x3/uL (130-400); RBC 4.02 10x6/uL (4.00-5.40); RDW 13.5 % (11.5-14.5)
[2019-06-03 05:26] LABS: CALC OSMOLALITY 271 mosm/kg (275-300); CALCIUM 7.6 mg/dL (8.5-10.1); CARBON DIOXIDE 34.4 mmol/L (21.0-32.0); CHLORIDE - SERUM 102 mmol/L (98-107); GLUCOSE 137 mg/dL (74-106); MAGNESIUM - SERUM 2.1 mg/dL (1.8-2.4); POTASSIUM - SERUM 4.4 mmol/L (3.5-5.1); SODIUM 134 mmol/L (136-145); UREA NITROGEN 18 mg/dL (7-18)
[2019-06-03 05:30] LABS: WBC 7.1 10x3/uL (4.8-10.8)
[2019-06-03 05:36] LABS: CREATININE - SERUM 0.5 mg/dL (0.6-1.3); eGFR NON AFRICAN AMERICAN > 90 mL/min (90-120)
[2019-06-03 08:00] VITALS: BP 137/69
--- NOTE | 2019-06-03 08:04 | MORECARE ---
CASE MANAGEMENT DISCHARGE SUMMARY PATIENT: RON CHOE UNIT: [id number] ADM DATE: 05/30/19 AGE: 73 : 43 SEX: F ROOM/BED: D.9342 AUTHOR: ANTONIADOC PHYSICIAN: REFERRING PHYSICIAN: BRIANNE MCNAMARA MD DATE OF SERVICE: 06/03/19 Discharge Plan Patient Name: RON CHOE Facility: [facility]:[place] : 1945 Planned Disposition: Home Anticipated Discharge Date: 06/02/19 Discharge Date: Expected LOS: 3 Initial Reviewer: [email or web address] Initial Review Date: 05/30/2019 Generated: 06/03/19 9:03 am DCP- Discharge Planning Updated by [email or web address]: Mary Mayo on 05/30/19 12:[address] CM met with patient to discuss initial discharge planning. Patient is in agreement to proceed with the assessment with her friend present. Patient reports that she lives at home independently, alone. Patient is alert/oriented. Stairs/steps: 4-5 w/rails. PCP: Dr. Maria Luisa Steele. Pharmacy: [facility] (by [employer]). Patient states she has been able to obtain all of their prescribed medications. HHS: No. DME: Updraft machine, O2 @[facility]. Patient gives permission to speak with family members/friend. Emergency contact: Dung Choe (son) [phone] (lives in [facility]) and Nancy Timmons (friend) [phone]. 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 CM discussed the availability of HH, Rehab, DME services. Patient denies the need for additional services at this time and feels safe returning to previous environment. Patient denies being hospitalized within the past 30 days. Patient denies the use of community resources OBIEE REPORT DEVELOPER. Transportation at time of discharge: Nancy Timmons. CM will assist PRN with any dc needs/plans. DCPIA - Discharge Planning Initial Assessment Updated by [email or web address]: Mary Mayo on 05/30/19 1:58 pm * Is the patient Alert and Oriented? Yes * How many steps to enter\exit or inside your home? 4-5 w/rail * PCP Dr. Maria Luisa Steele * Pharmacy [facility] next to [address] * Preadmission Environment Home Alone * ADLs Independent * Equipment Nebulizer Oxygen Shower Chair * Other Equipment NA * List name and contact numbers for known caregivers / representatives who currently or will assist patient after discharge: Dung Choe (son) [phone] lives in [facility] Nancy Timmons friend) [phone] * Verbal permission to speak to the caregivers and representatives has been obtained from the patient. Yes * Community resources currently utilized None * Additional services required to return to the preadmission environment? No * Can the patient safely return to the preadmission environment? Yes * Has this patient been hospitalized within the prior 30 days at any hospital? No Last DP export: 05/30/19 4:30 p Patient Name: RON CHOE Page 27279 at 0804 All edits/amendments must be made on the electronic document DICTATION DATE: 06/03/19802 STEAK SAUCE MAKER: VELMA 06/03/19802 RPT#: [id number] DC DATE: STATUS: ADM IN [facility] [address] [place] [address] END OF REPORT
[2019-06-03 11:25] VITALS: BP 149/70
[2019-06-03 14:22] VITALS: BP 133/54
--- NOTE | 2019-06-03 19:01 | NUR ---
RECEIVED BEDSIDE REPORT. PATIENT IS ALERT AND ORIENTED, RESTING COMFORTABLY IN BED. RESPIRATIONS ARE EVEN AND UNLABORED. NO S/S OF DISTRESS. NO C/O PAIN. CALL LIGHT WITHIN REACH. WILL CPOC.
[2019-06-03 19:27] LABS: CKMB 0.4 U/L (0.0-3.6); CREATINE KINASE 51 UL (21-215)
[2019-06-03 19:28] LABS: TROPONIN-I < 0.017 ng/mL (0.000-0.060)
[2019-06-03 20:00] VITALS: BP 146/72
[2019-06-03 23:21] LABS: CKMB 0.5 U/L (0.0-3.6); CREATINE KINASE 50 UL (21-215)
[2019-06-03 23:26] LABS: TROPONIN-I < 0.017 ng/mL (0.000-0.060)
[2019-06-04 00:21] VITALS: BP 142/72
[2019-06-04 04:00] VITALS: BP 160/71
[2019-06-04 05:43] LABS: BASOPHILS 0.1 % (0-2); EOSINOPHILS 0 % (0-7); HEMATOCRIT 42.8 % (36.0-48.0); HEMOGLOBIN 13.7 g/dL (12-16); IMMATURE GRANULOCYTES 1.6 % (0-5); LYMPHOCYTES 6.8 % (15-50); MCH 31.4 pg (26.0-34.0); MCV 97.9 fL (80.0-100.0); MEAN PLATELET VOLUME 11.4 fL (7.4-10.4); MONOCYTES 2.3 % (2-11); NEUTROPHILS 89.2 % (40-80); PLATELET COUNT 391 10x3/uL (130-400); RBC 4.37 10x6/uL (4.00-5.40); RDW 13.3 % (11.5-14.5); WBC 8.2 10x3/uL (4.8-10.8)
--- NOTE | 2019-06-04 05:53 | NUR ---
CALLED RT SPOKE WITH TOM ABOUT PATIENT RECEIVING BREATHING TREATMENT FOR INCREASED SOB.
[2019-06-04 06:25] LABS: CALC OSMOLALITY 274 mosm/kg (275-300); CALCIUM 7.7 mg/dL (8.5-10.1); CARBON DIOXIDE 35.4 mmol/L (21.0-32.0); CHLORIDE - SERUM 102 mmol/L (98-107); CKMB 0.5 U/L (0.0-3.6); CREATINE KINASE 46 UL (21-215); CREATININE - SERUM 0.6 mg/dL (0.6-1.3); GLUCOSE 129 mg/dL (74-106); MAGNESIUM - SERUM 2.1 mg/dL (1.8-2.4); POTASSIUM - SERUM 4.6 mmol/L (3.5-5.1); SODIUM 136 mmol/L (136-145); UREA NITROGEN 16 mg/dL (7-18); VANCOMYCIN - TROUGH 16.9 ug/mL (10.0-20.0); eGFR NON AFRICAN AMERICAN > 90 mL/min (90-120)
[2019-06-04 06:26] LABS: TROPONIN-I < 0.017 ng/mL (0.000-0.060)
[2019-06-04 09:53] VITALS: BP 143/71
--- NOTE | 2019-06-04 10:57 | NUR ---
OT AT BS ASSISTING WITH EXCERSISE.
--- NOTE | 2019-06-04 11:19 | NUR ---
02 SAT 94% ON 2L NC. 02 SAT 90% AT REST AND DECREASED TO 79% WITH EXERTION.
--- NOTE | 2019-06-04 12:28 | NUR ---
Rehab Note- Acute Inpatient Rehab prescreen order received. Visited with the patient- stated she is very SOB, fatigued, and her O2 sat is dropping with any activity/ambulation and feels she would strongly benefit from an acute inpatient rehab stay. Spoke with Sharee Hernandez, and CLARISSA Guzman and will accept the patient when ready for discharge from the acute hospital. Will follow at this time. Thank you for this referral! Mary La RN Clinical Liaison, [facility] Rehab
[2019-06-04] MEDS ORDERED: MERREM 1 GM/NS 11 G1 IV (12:43)
[2019-06-04] MEDS ORDERED: FEXOFENADINE HC60 MG PO (12:43)
[2019-06-04] MEDS ORDERED: Xopenex 0.63 MG INH UPD (12:43)
[2019-06-04] MEDS ORDERED: BROVANA15 MCG/2 M INH (12:43)
[2019-06-04] MEDS ORDERED: VANCOMYCIN 1 GM/1 G1 IV (12:43)
--- NOTE | 2019-06-04 12:43 | MORECARE ---
CASE MANAGEMENT DISCHARGE SUMMARY PATIENT: RON CHOE UNIT: [id number] ADM DATE: 05/30/19 AGE: 73 : 43 SEX: F ROOM/BED: D.4496 AUTHOR: ANTONIADOC PHYSICIAN: REFERRING PHYSICIAN: BRIANNE MCNAMARA MD DATE OF SERVICE: 06/04/19 Discharge Plan Patient Name: RON CHOE Facility: [facility]:[place] : 1945 Planned Disposition: Home Anticipated Discharge Date: 06/02/19 Discharge Date: Expected LOS: 3 Initial Reviewer: [email or web address] Initial Review Date: 06/04/2019 Generated: 06/04/19 1:43 pm Comments DCP- Discharge Planning Updated by [id number]: Lis Fisher on 06/04/19 11:[address] CM spoke with patient about IP rehab. Patient stated she would like to stay in the facility. MYAH signed and placed on chart. DC IMM delivered, explained, signed by the patient, and placed in his chart. Signed form also left with patient. Called Rehab with referral. Mary spoke with the patient, and verbalized that they will accept the patient today if D/C. Lis Fsiher MSN,RN CM DCP- Discharge Planning Updated by [id number]: Mary Mayo on 05/30/19 12:[address] CM met with patient to discuss initial discharge planning. Patient is in agreement to proceed with the assessment with her friend present. Patient reports that she lives at home independently, alone. Patient is alert/oriented. Stairs/steps: 4-5 w/rails. PCP: Dr. Maria Luisa Steele. [facility]by [employer] Patient states she has been able to obtain all of their prescribed medications. HHS: No. DME: Updraft machine, O2 @[facility]. Patient gives permission to speak with family members/friend. Emergency contact: Dung Choe (son) [phone] (lives in [facility]) and Nancy Timmons (friend) [phone]. 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 CM discussed the availability of HH, Rehab, DME services. Patient denies the need for additional services at this time and feels safe returning to previous environment. Patient denies being hospitalized within the past 30 days. Patient denies the use of community resources TRANSMITTER ENGINEER. Transportation at time of discharge: Nancy Timmons. CM will assist PRN with any dc needs/plans. DCPIA - Discharge Planning Initial Assessment Updated by [id number]: Mary Mayo on 05/30/19 1:58 pm * Is the patient Alert and Oriented? Yes * How many steps to enter\exit or inside your home? 4-5 w/rail * PCP Dr. Maria Luisa Steele * Pharmacy [facility] to [address] * Preadmission Environment Home Alone * ADLs Independent * Equipment Nebulizer Oxygen Shower Chair * Other Equipment NA * List name and contact numbers for known caregivers / representatives who currently or will assist patient after discharge: Dung Choe (son) [phone] lives in [facility] Nancy Timmons friend) [phone] * Verbal permission to speak to the caregivers and representatives has been obtained from the patient. Yes * Community resources currently utilized None * Additional services required to return to the preadmission environment? No * Can the patient safely return to the preadmission environment? Yes * Has this patient been hospitalized within the prior 30 days at any hospital? No Coverage Notice Reviewer: [email or web address] Fisher Notice Issued Date-Time: 06/04/2019 11:29 Notice Type: Patient Choice Letter Notice Delivered To: Patient Relationship to Patient: Can Maker Name: Delivery Method: HAND - Hand Delivered Gin Days: Prior Verbal Notification: Recipient Understood Notice: Yes Recipient Signature: Yes Med Rec Note Co-signed by Attending: Coverage Notice Comment: Reviewer: [id number] Kaleb Fisher Notice Issued Date-Time: 06/04/2019 11:29 Notice Type: IM Discharge Notice Notice Delivered To: Patient Relationship to Patient: Can Maker Name: Delivery Method: HAND - Hand Delivered Gin Days: Prior Verbal Notification: Recipient Understood Notice: Yes Recipient Signature: Yes Med Rec Note Co-signed by Attending: Coverage Notice Comment: Last DP export: 06/03/19 7:04 a Patient Name: RON CHOE Page [id number] at 1243 All edits/amendments must be made on the electronic document DICTATION DATE: 06/04/191242 GRAIN PROCESSOR: VELMA 06/04/191242 RPT#: [id number] DC DATE: STATUS: ADM IN [facility] [address] [place] [address] END OF REPORT
[2019-06-04] MEDS ORDERED: LOVENOX40 MG/0.4 SC (12:44)
--- NOTE | 2019-06-04 13:07 | MORECARE ---
CASE MANAGEMENT DISCHARGE SUMMARY PATIENT: RON CHOE UNIT: [id number] ADM DATE: 05/30/19 AGE: 73 : 43 SEX: F ROOM/BED: D.1130 AUTHOR: ANTONIA,DOC PHYSICIAN: REFERRING PHYSICIAN: BRIANNE MCNAMARA MD DATE OF SERVICE: 06/04/19 Discharge Plan Patient Name: RON CHOE Facility: [facility]:[place] : 1945 Planned Disposition: Inpatient Rehab Anticipated Discharge Date: 06/04/19 Discharge Date: Expected LOS: 5 Initial Reviewer: [email or web address] Initial Review Date: 06/04/2019 Generated: 06/04/19 2:06 pm Comments DCP- Discharge Planning Updated by [email or web address]: Carlos Cornejo on 06/04/19 12:[address] Patient Name: RON CHOE Encounter No: [id number] : 1945 Primary Insurance: MEDICARE A & B Anticipated DC Date: 06-04-2019 Planned Disposition: Inpatient Rehab External Planned Provider: [facility]IENT [facility] DCP follow-up note: CM RECEIVED DISCHARGE ORDER, SPOKE TO FLAKITA OF INPATIENT REHAB, THEY PLAN TO ACCEPT PT TODAY FOR REHAB. [facility] TO CONTACT MED 2 NURSE WITH ROOM NUMBER WHEN READY TO ACCEPT PT AND NURSE REPORT. Carlos Cornejo, CASE MANAGEMENT DCP- Discharge Planning Updated by [id number]: Lis Fisher on 06/04/19 11:[address] CM spoke with patient about IP rehab. Patient stated she would like to stay in the facility. MYAH signed and placed on chart. DC IMM delivered, explained, signed by the patient, and placed in his chart. Signed form also left with patient. Called Rehab with referral. Flakita spoke with the patient, and verbalized that they will accept the patient today if D/C. Lis Fisher MSN,RN CM DCP- Discharge Planning Updated by [id number]: Mary Mayo on 05/30/19 12:[address] CM met with patient to discuss initial discharge planning. Patient is in agreement to proceed with the assessment with her friend present. Patient reports that she lives at home independently, alone. Patient is alert/oriented. Stairs/steps: 4-5 w/rails. PCP: Dr. Maria Luisa Steele. Pharmacy: [facility] ([facility] Patient states she has been able to obtain all of their prescribed medications. HHS: No. DME: Updraft machine, O2 @[facility]. Patient gives permission to speak with family members/friend. Emergency contact: Dung Choe (son) [phone] (lives in [facility]) and Nancy Timmons (friend) [phone]. 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 CM discussed the availability of HH, Rehab, DME services. Patient denies the need for additional services at this time and feels safe returning to previous environment. Patient denies being hospitalized within the past 30 days. 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 Transportation at time of discharge: Nancy Timmons. CM will assist PRN with any dc needs/plans. DCPIA - Discharge Planning Initial Assessment Updated by [id number]: Mary Mayo on 05/30/19 1:58 pm * Is the patient Alert and Oriented? Yes * How many steps to enter\exit or inside your home? 4-5 w/rail * PCP Dr. Maria Luisa Steele * Pharmacy [facility] to [address] * Preadmission Environment Home Alone * ADLs Independent * Equipment Nebulizer Oxygen Shower Chair * Other Equipment NA * List name and contact numbers for known caregivers / representatives who currently or will assist patient after discharge: Dung Choe (son) [phone] [facility] Nancy Timmons friend) [phone] * Verbal permission to speak to the caregivers and representatives has been obtained from the patient. Yes * Community resources currently utilized None * Additional services required to return to the preadmission environment? No * Can the patient safely return to the preadmission environment? Yes * Has this patient been hospitalized within the prior 30 days at any hospital? No Coverage Notice Reviewer: [id number] Kaleb Fisher Notice Issued Date-Time: 06/04/2019 11:29 Notice Type: Patient Choice Letter Notice Delivered To: Patient Relationship to Patient: Joint Sealer Name: Delivery Method: HAND - Hand Delivered Gni Days: Prior Verbal Notification: Recipient Understood Notice: Yes Recipient Signature: Yes Med Rec Note Co-signed by Attending: Coverage Notice Comment: Reviewer: [email or web address] Kaleb Fisher Notice Issued Date-Time: 06/04/2019 11:29 Notice Type: IM Discharge Notice Notice Delivered To: Patient Relationship to Patient: Joint Sealer Name: Delivery Method: HAND - Hand Delivered Gin Days: Prior Verbal Notification: Recipient Understood Notice: Yes Recipient Signature: Yes Med Rec Note Co-signed by Attending: Coverage Notice Comment: Last DP export: 06/04/19 11:43 a Patient Name: RON CHOE Page [phone] at 1307 All edits/amendments must be made on the electronic document DICTATION DATE: 06/04/19 1306 CUSTOMER EXPERIENCE ANALYST: VELMA 06/04/19 1306 RPT#: [id number] DC DATE: STATUS: ADM IN [facility] [address] [place] [address] END OF REPORT
--- NOTE | 2019-06-04 13:33 | NUR ---
UPON ADMIT, PATIENT HAS NOT HAD A FLU SHOT. WHEN QUESTIONED FOR DISCHARGE, SHE REFUSED ONE.
[2019-06-04] MEDS ORDERED: LINZESS72 MCG PO (13:45)
[2019-06-04] MEDS ORDERED: DILTIAZEM 24HR240 M4 PO (13:46)
[2019-06-04] MEDS ORDERED: PULMICORT0.5 MG/21 INH (13:46)
[2019-06-04] MEDS ORDERED: PROTONIX40 MG PO (13:47)
--- NOTE | 2019-06-04 15:02 | MORECARE ---
CASE MANAGEMENT DISCHARGE SUMMARY PATIENT: RON CHOE UNIT: [id number] ADM DATE: 05/30/19 AGE: 73 : 43 SEX: F ROOM/BED: D.1226 AUTHOR: ANTONIA,DOC PHYSICIAN: REFERRING PHYSICIAN: BRIANNE MCNAMARA MD DATE OF SERVICE: 06/04/19 Discharge Plan Patient Name: RON CHOE Facility: [facility]:[place] : 1945 Planned Disposition: Inpatient Rehab Anticipated Discharge Date: 06/04/19 Discharge Date: Expected LOS: 5 Initial Reviewer: [email or web address] Initial Review Date: 06/04/2019 Generated: 06/04/19 4:01 pm Comments DCP- Discharge Planning Updated by [id number]: Carlos Cornejo on 06/04/19 12:[address] Patient Name: RON CHOE Encounter No: [id number] : 1945 Primary Insurance: MEDICARE A & B Anticipated DC Date: 06-04-2019 Planned Disposition: Inpatient Rehab External Planned Provider: INPATIENT REHAB DCP follow-up note: CM RECEIVED DISCHARGE ORDER, SPOKE TO FLAKITA OF INPATIENT REHAB, THEY PLAN TO ACCEPT PT TODAY FOR REHAB. [facility]PATIENT REHAB TO CONTACT MED 2 NURSE WITH ROOM NUMBER WHEN READY TO ACCEPT PT AND NURSE REPORT. Carlos Cornejo, CASE MANAGEMENT DCP- Discharge Planning Updated by [email or web address]: Lis Fisher on 06/04/19 11:[address] CM spoke with patient about IP rehab. Patient stated she would like to stay in the facility. MYAH signed and placed on chart. DC IMM delivered, explained, signed by the patient, and placed in his chart. Signed form also left with patient. Called Rehab with referral. Flakita spoke with the patient, and verbalized that they will accept the patient today if D/C. Lis Fisher MSN,RN CM DCP- Discharge Planning Updated by [email or web address]: Mary Mayo on 05/30/19 12:[address] CM met with patient to discuss initial discharge planning. Patient is in agreement to proceed with the assessment with her friend present. Patient reports that she lives at home independently, alone. Patient is alert/oriented. Stairs/steps: 4-5 w/rails. PCP: Dr. Maria Luisa Steele. Pharmacy: [facility] ([facility]). Patient states she has been able to obtain all of their prescribed medications. HHS: No. DME: Updraft machine, O2 @[facility]. Patient gives permission to speak with family members/friend. Emergency contact: Dung Choe (son) [phone] (lives in [place]) and Nancy Timmons (friend) [phone]. 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 CM discussed the availability of HH, Rehab, DME services. Patient denies the need for additional services at this time and feels safe returning to previous environment. Patient denies being hospitalized within the past 30 days. Patient denies the use of community resources BRIM WELT SEWING MACHINE OPERATOR. Transportation at time of discharge: Nancy Timmons. CM will assist PRN with any dc needs/plans. DCPIA - Discharge Planning Initial Assessment Updated by [id number]: Mary Mayo on 05/30/19 1:58 pm * Is the patient Alert and Oriented? Yes * How many steps to enter\exit or inside your home? 4-5 w/rail * PCP Dr. Maria Luisa Steele * Pharmacy [facility] [address] * Preadmission Environment Home Alone * ADLs Independent * Equipment Nebulizer Oxygen Shower Chair * Other Equipment NA * List name and contact numbers for known caregivers / representatives who currently or will assist patient after discharge: Dung Choe (son) [phone] lives in [place] Nancy Timmons friend) [phone] * Verbal permission to speak to the caregivers and representatives has been obtained from the patient. Yes * Community resources currently utilized None * Additional services required to return to the preadmission environment? No * Can the patient safely return to the preadmission environment? Yes * Has this patient been hospitalized within the prior 30 days at any hospital? No Coverage Notice Reviewer: [id number] Kaleb Fisher Notice Issued Date-Time: 06/04/2019 11:29 Notice Type: Patient Choice Letter Notice Delivered To: Patient Relationship to Patient: Specialty Cook Name: Delivery Method: HAND - Hand Delivered Gin Days: Prior Verbal Notification: Recipient Understood Notice: Yes Recipient Signature: Yes Med Rec Note Co-signed by Attending: Coverage Notice Comment: Reviewer: [id number] Kaleb Fisher Notice Issued Date-Time: 06/04/2019 11:29 Notice Type: IM Discharge Notice Notice Delivered To: Patient Relationship to Patient: Specialty Cook Name: Delivery Method: HAND - Hand Delivered Gin Days: Prior Verbal Notification: Recipient Understood Notice: Yes Recipient Signature: Yes Med Rec Note Co-signed by Attending: Coverage Notice Comment: Last DP export: 06/04/19 12:07 p Patient Name: RON CHOE Page [id number] at 1502 All edits/amendments must be made on the electronic document DICTATION DATE: 06/04/19 1501 INTEGRITY ENGINEER: VELMA 06/04/19 1501 RPT#: [id number] DC DATE: STATUS: ADM IN [address] [place] [address] END OF REPORT
--- NOTE | 2019-06-04 15:38 | NUR ---
OT NOTE: PT COMPLETED ADL MOB WITH CGA. PT COMPLETED HYGIENE TASKS WHILE STANDING AT SINK LEVEL WITH SBA. PT COMPLETED TOILETING WITH SBA. PT COMPLETED BUE AROM EXS AT EOB. [phone] THANK YOU,TYE VILLALPANDO
--- NOTE | 2019-06-04 15:46 | NUR ---
OT NOTE: BED MOB WITH MIN ASSIST; IN ROOM AMBULATION WITH MIN ASSIST; TOILETING WITH MIN ASSIST. PT REMAINS WEAK AND SOB. WILL REQUIRE CONTINUED THERAPY TO IMPROVE STRENGTH AND ENDURANCE. DORY TOBAR, OTR/L [phone]
--- NOTE | 2019-06-04 18:39 | NUR ---
REPORT CALLED TO REHAB. TELEMETRY DCD. TRANSFERED BY W/C.
== END 2019-06-04 18:39 | DRG 177 ==
LOC: D.ER 08:59 → D.M2 11:34
PROVIDERS: Family Medicine; Internal Medicine Nephrology; ADMIT Family Medicine; ATTEND Family Medicine
DX: J69.0 Pneumonitis due to inhalation of food and vomit (principal); I50.33 Acute on chronic diastolic (congestive) heart failure; J44.1 Chronic obstructive pulmonary disease with (acute) exacerbation; I48.20 Chronic atrial fibrillation, unspecified; N17.9 Acute kidney failure, unspecified; E44.0 Moderate protein-calorie malnutrition; K59.09 Other constipation; Z86.73 Personal history of transient ischemic attack (TIA), and cerebral infarction without residual deficits; Z68.33 Body mass index [BMI] 33.0-33.9, adult

== ENCOUNTER 2019-06-17 15:44 | Inpatient (IN) | payer MEDICARE, BC ==
[~2019-06-17] VITALS: Ht 160 cm; Wt 90.7 kg
[~2019-06-17 15:44] MED LIST changes: +ACETAMINOPHEN325 MG PO; +AMIODARONE HCL200 MG PO; +BROVANA15 MCG/2 M INH; +DILTIAZEM 24HR240 M4 PO; +ELIQUIS2.5 MG PO; +FERROUS SULFAT325 MG PO; +FEXOFENADINE HC60 MG PO; +LINZESS72 MCG PO; +LOVENOX40 MG/0.4 SC; +Levaquin PO; +MERREM 1 GM/NS 11 G1 IV; +Nystatin Oral Susp [ PO; +PROTONIX40 MG PO; +PULMICORT0.5 MG/21 INH; +VANCOMYCIN 1 GM/1 G1 IV; +Xopenex 0.63 MG INH UPD
[2019-06-17 18:16] VITALS: BP 113/49; BMI 35.5
--- NOTE | 2019-06-17 18:41 | NUR ---
ADMIT TO REHAB FROM ACUTE CARE. WOUND VAC TO LEFT HIP, ANTERIOR. PURPLE BRUISED AREA TO LEFT HIP AND BEHIND LEFT KNEE. 4+ EDEMA TO LLE, 3+ EDEMA TO RLE. OXYGEN 2LNC. CALL LIGHT IN REACH
--- NOTE | 2019-06-17 20:20 | NUR ---
PATIENT RECEIVED SITTING UP IN BED. ASSESSMENT & VITAL SIGNS DONE. NO C/O PAIN OR DISTRESS. BED LOW. ALARM ON. CALL LIGHT WITH IN REACH. WILL CONTINUE TO MONITOR.
[2019-06-17 21:50] VITALS: BP 115/52
--- NOTE | 2019-06-18 00:25 | NUR ---
PATIENT USED CALL LIGHT FOR ASSIST. PATIENT HAD URINE INCONTINENCE IN BED. PATIENT PLACED ON BED GUY. NO VOID. BED LOW. CALL LIGHT WITHIN REACH. WILL CONTINUE TO MONITOR.
--- NOTE | 2019-06-18 01:39 | NUR ---
PATIENT C/O N/V. DR. LEI NOTIFIED ON HIS SHEET. PATIENT GIVEN COLD WASH CLOTH & CRACKERS, REFUSED [place]. PATIENT C/O GAS ALSO. BED UP 90 DEGREES. CALL LIGHT WITHIN REACH. WILL CONTINUE TO MONITOR.
--- NOTE | 2019-06-18 02:27 | NUR ---
PATIENT GIVEN ZOFRAN SUBLINGUAL FOR NAUSEA. WILL CONTINUE TO MONITOR.
--- NOTE | 2019-06-18 02:31 | NUR ---
I have reviewed this patient and I concur with the Shift Assessment completed by the Licensed Practical Nurse today this shift.
--- NOTE | 2019-06-18 02:41 | NUR ---
PATIENT HAD VOID ONLY IN BED GUY. BRUISE TO LEFT SIDE OF LEFT LEG OPENED UP WHEN PATIENT TURNED. LEG WAS TORN ON AVILA BAG CLAMP. DRESSING APPLIED. CALL LIGHT WITHIN REACH. WILL CONTINUE TO MONITOR.
--- NOTE | 2019-06-18 04:05 | NUR ---
PATIENT EYES CLOSED. RESPIRATIONS 18 & EVEN. BED LOW. ALARM ON. CALL LIGHT WITHIN REACH. WILL CONTINUE TO MONITOR.
--- NOTE | 2019-06-18 04:09 | NUR ---
PATIENT LEFT CALF SKIN TEAR CLEANED. MEPIPLEX APPLIED. WILL CONTINUE TO MONITOR.
--- NOTE | 2019-06-18 07:45 | NUR ---
PT A/O X4 AWAKE LAYING IN BED. VSS. ASSISTED PT TO BEDPAN. PT DENIES ANY PAIN OR FURTHER NEEDS AT THIS TIME. BED LOW CALL LIGHT WITHIN REACH. WILL CONTINUE TO MONITOR.
[2019-06-18 07:52] LABS: BASOPHILS 0 % (0-2); EOSINOPHILS 0.7 % (0-7); HEMATOCRIT 28.4 % (36.0-48.0); IMMATURE GRANULOCYTES 0.2 % (0-5); LYMPHOCYTES 7.9 % (15-50); MCH 30.1 pg (26.0-34.0); MCHC 31.7 g/dL (31.0-37.0); MEAN PLATELET VOLUME 10.9 fL (7.4-10.4); MONOCYTES 4.4 % (2-11); NEUTROPHILS 86.8 % (40-80); RBC 2.99 10x6/uL (4.00-5.40); RDW 17.4 % (11.5-14.5); WBC 9.6 10x3/uL (4.8-10.8)
[2019-06-18 07:55] LABS: PLATELET COUNT 134 10x3/uL (130-400)
[2019-06-18 08:21] LABS: CALC OSMOLALITY 271 mosm/kg (275-300); CALCIUM 7.9 mg/dL (8.5-10.1); CHLORIDE - SERUM 93 mmol/L (98-107); CREATININE - SERUM 0.7 mg/dL (0.6-1.3); GLUCOSE 101 mg/dL (74-106); POTASSIUM - SERUM 3.6 mmol/L (3.5-5.1); SODIUM 134 mmol/L (136-145); UREA NITROGEN 23 mg/dL (7-18); eGFR NON AFRICAN AMERICAN 86 mL/min (90-120)
[2019-06-18 08:34] LABS: CARBON DIOXIDE 43.2 mmol/L (21.0-32.0)
[2019-06-18 08:44] VITALS: BP 114/57
--- NOTE | 2019-06-18 11:10 | NUR ---
INTRODUCED SELF TO PT , AFTERNOON MED GIVEN, PT TOLERATED WELL, SITTING UP IN CHAIR, CALL LIGHT WITHIN REACH, WILL CONTINUE TO MONITOR.
--- NOTE | 2019-06-18 12:40 | NUR ---
ASSISTED PT TO BATHROOM VIA WHEELCHAIR WITH MOD ASSISTANCE, PT TOLERATED WELL, CALL LIGHT WITHIN REACH, WILL CONTINUE TO MONITOR.
[2019-06-18 15:06] VITALS: Ht 160 cm; Wt 90.7 kg
--- NOTE | 2019-06-18 17:27 | NUR ---
MOVED PT TO 1118B, MEDICATION GIVEN, PT TOLERATED WELL, WILL CONTINUE TO MONITOR, CALL LIGHT WITHIN REACH.
[2019-06-18 20:00] VITALS: BP 104/74
--- NOTE | 2019-06-18 20:00 | NUR ---
PATIENT RECEIVED SITTING UP IN BED. ASSESSMENT & VITAL SIGNS DONE. NO C/O PAINOR DISTRESS. WOUND VAC IN PLACE & WORKING. PATIENT MODERATE ASSIST INTO WHEELCHAIR. PATIENT HAD VOID ONLY. RETURNED TO BED. BED LOW. ALARM ON. CALL LIGHT WITHIN REACH. WILL CONTINUE TO MONITOR.
[2019-06-19 08:12] VITALS: BP 122/59
--- NOTE | 2019-06-19 10:30 | NUR ---
ALERT AND ORIENTED. ASSIST X 1 TRANSFER TO BED FROM W/C. 4+ EDEMA IN BILATERAL LOWER EXTREMITIES. VS STABLE. NO SIGNS OF DISTRESS. WILL CONTINUE TO MONITOR.
--- NOTE | 2019-06-19 16:11 | RHP ---
PATIENT: RON ALBERTO MEDICAL RECORD: [id number] ACCOUNT: [id number] LOCATION:[facility] : 41 ADMISSION DATE: 06/17/19 REHABILITATION HISTORY AND PHYSICAL EXAMINATION POST ADMISSION PHYSICIAN EXAMINATION ADMITTING DIAGNOSIS: Left hip fracture. HISTORY OF PRESENT ILLNESS: The patient is a 73-year-old female patient who presents secondary to a displaced left femoral neck fracture status post left total hip arthroplasty. The patient has got a history of COPD, asthma, arthritis, was recently admitted for aspiration pneumonia, COPD exacerbation, new-onset atrial fibrillation with rapid ventricular response, was transferred to inpatient rehab on 06/04/2019, the day before she was discharged. She fell and complained of acute pain in her left hip. X-ray showed a nondisplaced subacute fracture of the left femoral neck. The patient was admitted back to the acute floor for orthopedic consult. The left hip was shortened and externally rotated. She had pain noted. The patient was also noted to be in atrial fibrillation with rapid ventricular response. Cardiology saw her during her stay, felt like this was secondary to recent illness and increased catecholamine drive from pain in her leg. The patient was taken to the OR for left total hip arthroplasty. Postop was complicated by hypokalemia, but this was replaced. The patient is currently in normal sinus rhythm on Cordarone. She actually was living independent, was independent with ADLs and mobility prior to this. She is currently setup for mod to max assist for sit to stand and bed to chair. She has prolonged immobility, progressive generalized weakness, especially in her lower extremities, which all affect her tolerance to PT. She is very fatigued, has limited flexion and extension, proximal muscle strength is decreased mod to max assist for ADLs, mod to max assist for sit to stand. She is highly motivated and has good family support to get back to her prior level of function and return home. COMORBIDITIES: Include left hip fracture. She has got aspiration pneumonia, COPD, hypoxia, hypokalemia, electrolyte abnormalities, hematoma to her leg, constipation, osteoarthritis and moderate protein-calorie malnutrition. PAST MEDICAL HISTORY: Significant for TIA in the past. She has got a history of sinus problems, asthma problems, diverticulitis, constipation, bowel obstruction, arthritis, fracture, tobacco use. PAST SURGICAL HISTORY: Includes gallbladder surgery, appendectomy, hysterectomy and left hand surgery. ALLERGIES: ROCEPHIN, CIPRO, CODEINE, FOSAMAX, AND LISINOPRIL. CURRENT MEDICATIONS: Include Floranex daily, she is on Daliresp 250 mcg daily, multivitamin daily, furosemide 40 mg daily, Flonase nasal spray daily, Geetha 60 mg daily, Colace 100 mg daily, Cardizem 240 daily, amiodarone 200 mg daily, carvedilol 3.125 mg b.i.d. with meals, Xopenex, budesonide 0.5 mg daily, Brovana 50 mcg b.i.d., Protonix 40 mg b.i.d., Linzess 72 mcg daily, Zofran 4 mg every 6 hours, Deltasone 10 mg b.i.d., polyethylene glycol 17 grams in 8 ounces of water daily, Nystatin 5 cc before every meal and at bedtime, Singulair 10 mg at bedtime, Mucinex D b.i.d., Tessalon Perles 200 mg t.i.d., Eliquis 2.5 mg b.i.d., and Tylenol 650 every 4 hours p.r.n., potassium chloride 10 mEq daily. HISTORY AND PHYSICAL [id number] RON ALBERTO HABITS: No alcohol or tobacco use. FAMILY HISTORY: Noncontributory. SOCIAL HISTORY: The patient hopes to return back home and get back to her prior level of functioning. REVIEW OF SYSTEMS: GENERAL: Does complain of some weakness and fatigue. HEENT: Denies cold, cough, or congestion. CARDIOVASCULAR: Denies chest pain. PHYSICAL EXAMINATION: VITAL SIGNS: Stable, afebrile. GENERAL: A somewhat obese female in no acute distress upon exam. HEENT: Normocephalic and atraumatic. Mucosa moist. NECK: Supple, with no lymphadenopathy. LUNGS: Clear in upper bruno at this time. HEART: Regular rate and rhythm. No murmurs, rubs, or gallops. ABDOMEN: Soft, benign and nondistended. Positive bowel sounds times 4. EXTREMITIES: She does have some peripheral edema and her postop area looks good. NEUROLOGIC: She does have noted proximal muscle weakness. LABORATORY DATA: Her white count is 9.6, H&H of 9 and 28 and platelet count is noted to be 134. Sodium is 134, potassium 3.6, BUN and creatinine of 23 and 0.7 and blood sugar was noted to be 101. ASSESSMENT: This is a 73-year-old female patient admitted to rehab with a working diagnosis of left hip fracture. The patient has potential to make improvement. We instituted the following multidisciplinary therapies include, but not limited to physical, occupational, respiratory, speech, nutritional services, prosthetics and orthotics. Given her complex medical condition and risks for more complications, rehabilitation services cannot be provided at a low level of care such as skilled nurse facility. PLAN: 1. Admit to [facility] for intensive inpatient therapy to include the following disciplines; A. Physical therapy to improve gait, all transfer skills and bed mobility to a modified independent level. B. Occupational therapy to a modified independent level. C. Case management to assist with discharge planning and placement options. D. Nutrition to assist with nutritional needs. E. Rehabilitation nursing to assist in monitoring the patient's underlying medical conditions and to assist with any type of bowel or bladder management. 2. The patient's current medication and medical care will be continued. 3. The patient will be placed on standard fall precautions. 4. The patient's estimated length of stay is approximately 7-10 days. 5. We will discuss the patient during care team staff meeting this week. TRANSINT:[id number] Voice Confirmation ID: [id number] DOCUMENT ID: [id number] DESIREE notes whether there has been none or any medical/functional HISTORY AND PHYSICAL [id number] RON ALBERTO change since admission: - No change since pre-admission screen. DESIREE attests patient continues to be appropriate for IRF: - Continues to be appropriate. BILLY LEI MD at 1611 CC: [id number] DICTATION DATE: 06/18/19 0909 TEASELER: 06/18/19 1020 ADM IN [place] [address] [place] [address]
--- NOTE | 2019-06-19 17:31 | NUR ---
CARE TEAM MEETING: PATIENT IS NEW TO UNIT AND WILL BE RA AT NEXT MEETING.HER PCP IS DR. PALMER HERRERA, DME AT HOME IS A NEBULIZER, O2 AND A SHOWERCHAIR WHICH SHE RECIEVED FROM [facility]. WILL CONTINUE TO FOLLOW WITH PATIENT.
--- NOTE | 2019-06-19 19:28 | NUR ---
FAMILY VISITS, NO SIGNS OF DISTRESS. CALL LIGHT WITHIN REACH.
--- NOTE | 2019-06-19 20:30 | NUR ---
PATIENT RECIEVED SITTING UP IN BED. ASSESSMENT & VITAL SIGNS DONE. PATIENT C/O PAIN TO LEFT HIP & LEG. PATIENT TOILETED. VOID ONLY. RETURNED TO LOW BED. CALL LIGHT WITHIN REACH. WILL CONTINUE TO MONITOR.
[2019-06-19 22:13] VITALS: BP 125/57
--- NOTE | 2019-06-20 03:33 | NUR ---
I have reviewed this patient and I concur with the Shift Assessment completed by the Licensed Practical Nurse today this shift.
--- NOTE | 2019-06-20 04:08 | NUR ---
PATYIENT EYES CLOSED. RESPIRATIONS 18 & EVEN. BED LOW. ALARM ON. CALL LIGHT WITHIN REACH. WILL CONTINUE TO MONITOR.
[2019-06-20 08:54] LABS: BASOPHILS 0.1 % (0-2); CREATININE - SERUM 0.9 mg/dL (0.6-1.3); EOSINOPHILS 0.9 % (0-7); HEMATOCRIT 29.5 % (36.0-48.0); HEMOGLOBIN 9.3 g/dL (12-16); IMMATURE GRANULOCYTES 0.1 % (0-5); LYMPHOCYTES 7.2 % (15-50); MCH 30.5 pg (26.0-34.0); MCHC 31.5 g/dL (31.0-37.0); MCV 96.7 fL (80.0-100.0); MEAN PLATELET VOLUME 11.3 fL (7.4-10.4); MONOCYTES 6.2 % (2-11); NEUTROPHILS 85.5 % (40-80); RBC 3.05 10x6/uL (4.00-5.40); RDW 17.2 % (11.5-14.5); WBC 8.1 10x3/uL (4.8-10.8)
[2019-06-20 08:55] LABS: PLATELET COUNT 168 10x3/uL (130-400)
[2019-06-20 09:31] LABS: CARBON DIOXIDE 41.9 mmol/L (21.0-32.0); POTASSIUM - SERUM 2.9 mmol/L (3.5-5.1)
[2019-06-20 09:41] VITALS: BP 118/60
--- NOTE | 2019-06-20 14:49 | NUR ---
LAYING IN BED WITH EYES CLOSED. WOUND VAC IN PLACE TO LEFT HIP. MAX ASST TO HELP TO TRANSFER. OXYGEN 2LNC IN USE. DSG IN PLACCE TO BACK OF LLE. 4+ EDEMA NOTED TO LLE, 3+ EDEMA TO RLE. CALL LIGHT IN REACH
--- NOTE | 2019-06-20 19:30 | NUR ---
PT IS RESTING IN BED WITH EYES OPEN. ALERT AND ORIENTED X 3. DENIES ACUTE PAIN OR DISCOMFORT AT THIS TIME. PT ASSISTED TO THE BATHROOM WITH MIN ASSIST. VOIDED WITHOUT DIFFICULTY. 02 ON @ 2LPM PER NC. NO SOB NOTED. WOUND VAC TO LEFT HIP CDI. SR'S ARE UP X 2 IN BED. CALL LIGTH AND BEDSIDE TABLE ARE WITHIN EASY REACH.
--- NOTE | 2019-06-20 22:16 | NUR ---
PT RESTING IN BED WITH EYES OPEN. NO NEEDS VOICED.
[2019-06-20 22:47] VITALS: BP 123/68
--- NOTE | 2019-06-20 23:50 | NUR ---
PT RESTING IN BED WITH EYES CLOSED.
--- NOTE | 2019-06-21 02:36 | NUR ---
I have reviewed this patient and I concur with the Shift Assessment completed by the Licensed Practical Nurse today this shift.
--- NOTE | 2019-06-21 04:35 | NUR ---
PT ASSISTED TO THE BATHROOM WITH MIN ASSIST. SBA FOR TOILETING , AND MOD ASSIST ONLY TO GET HER LEGS BACK INTO THE BED. NO FURTHER NEEDS VOICED.
[2019-06-21 08:00] VITALS: BP 137/58
--- NOTE | 2019-06-21 16:11 | NUR ---
WOUND VAC STOPPED WORKING. DSG REMOVED AND CLEAN, DRY DSG APPLIED TO INCISION LINE. INCISION IS CLOSED AND LOOKS ALMOST HEALED. NO S/S INFECTION. PT DENIES PAIN TO INCISION. SHE STATES HER SKIN TEAR TO LLE, CALF, LATERAL IS MORE TENDER THAN INCISION. SHE VOIDS APPX EVERY HOUR. 4+ EDEMA BLE.
--- NOTE | 2019-06-21 19:29 | NUR ---
PT IS RESTING IN BED WITH EYES OPEN. ALERT AND ORIENTED X 3. DENIES ACUTE PAIN OR DISCOMFORT AT THIS TIME. NO NEEDS VOICED. DRESSING TO LEFT HIP IS CDI. NO DRAINAGE NOTED. SR'S ARE UP X 2 IN BED. CALL LIGHT AND BEDSIDE TABLE ARE WITHIN EASY REACH.
[2019-06-21 20:30] VITALS: BP 102/57
--- NOTE | 2019-06-21 22:07 | NUR ---
PT RESTING IN BED WITH EYES OPEN. NO NEEDS VOICED. ASSISTED TO BR PRN.
--- NOTE | 2019-06-22 00:43 | NUR ---
I have reviewed this patient and I concur with the Shift Assessment completed by the Licensed Practical Nurse today this shift.
--- NOTE | 2019-06-22 03:20 | NUR ---
PT RESTING IN BED WITH EYES CLOSED. NO ACUTE DISTRESS NOTED.
--- NOTE | 2019-06-22 06:37 | NUR ---
PT RESTING IN BED WITH EYES OPEN. NO ACUTE DISTRESS NOTED.
[2019-06-22 08:00] VITALS: BP 117/51
--- NOTE | 2019-06-22 14:00 | NUR ---
SITTING UP IN BED WATCHING TV. MOD ASST TO TRANSFER FROM BED TO . IS CONT OF BOWEL AND BLADDER. USES TOILET VERY OFTEN. 4+ EDEMA TO BLE. SKIN TEAR TO LLE, CALF, LATERAL IS DARK COLORED AND APPEARS TO BE BLOOD UNDER THE SKIN WITH SHALLOW CRATER. CALL LIGHT IN REACH
--- NOTE | 2019-06-22 19:39 | NUR ---
PT IS RESTING IN BED WITH EYES OPEN. ALERT AND ORIENTED X 3. DENIES ACUTE PAIN OR DISCOMFORT AT THIS TIME. NO NEEDS VOICED. DRESSING TO LEFT HIP INCISION IS CDI. NO DRAINAGE NOTED. O2 IS ON @ 2LPM PER NC. NO SOB NOTED. OPSITE DRESSING TO LEFT LEG SKIN TEAR IS CDI. SR'S ARE UP X 2 IN BED. CALL LIGHT AND BEDSIDE TABLE ARE WITHIN EASY REACH.
[2019-06-22 20:00] VITALS: BP 125/50
--- NOTE | 2019-06-22 22:58 | NUR ---
PT RESTING IN BED WITH EYES CLOSED.
--- NOTE | 2019-06-23 00:50 | NUR ---
I have reviewed this patient and I concur with the Shift Assessment completed by the Licensed Practical Nurse today this shift.
--- NOTE | 2019-06-23 04:37 | NUR ---
RESTING IN BED WITH EYES CLOSED.
[2019-06-23 08:00] VITALS: BP 120/56
[2019-06-23 08:03] LABS: BASOPHILS 0 % (0-2); EOSINOPHILS 0.7 % (0-7); HEMATOCRIT 25.5 % (36.0-48.0); HEMOGLOBIN 8.2 g/dL (12-16); LYMPHOCYTES 9.4 % (15-50); MCH 30.6 pg (26.0-34.0); MCHC 32.2 g/dL (31.0-37.0); MCV 95.1 fL (80.0-100.0); MEAN PLATELET VOLUME 10.5 fL (7.4-10.4); MONOCYTES 8.6 % (2-11); NEUTROPHILS 81.3 % (40-80); RBC 2.68 10x6/uL (4.00-5.40); RDW 17.2 % (11.5-14.5); WBC 5.7 10x3/uL (4.8-10.8)
[2019-06-23 08:10] LABS: PLATELET COUNT 223 10x3/uL (130-400)
[2019-06-23 08:11] LABS: CALC OSMOLALITY 263 mosm/kg (275-300); CALCIUM 7.8 mg/dL (8.5-10.1); CHLORIDE - SERUM 91 mmol/L (98-107); CREATININE - SERUM 0.7 mg/dL (0.6-1.3); GLUCOSE 102 mg/dL (74-106); POTASSIUM - SERUM 3.4 mmol/L (3.5-5.1); SODIUM 131 mmol/L (136-145); UREA NITROGEN 16 mg/dL (7-18); eGFR NON AFRICAN AMERICAN 86 mL/min (90-120)
[2019-06-23 08:14] LABS: CARBON DIOXIDE 43.8 mmol/L (21.0-32.0)
--- NOTE | 2019-06-23 13:29 | NUR ---
NUTRITION FOLLOW UP COMMENTS: Patient in therapy during visit. Patient eating well. No nausea/vomiting DIET: AHA Cardiac Diet -No corn, rice, salads, nuts, or beans PO INTAKE: 67% avg x 9 meals BM: x 1 loose on 06/23 x 5 on 06/22 WEIGHT: 199 lbs Previous- 200 lbs on 06/08 SIG LABS: Na-131(L), K-3.4(L), Chloride-91(L), Calcium-7.8(L) SIG MEDS: KCl, MVI, Lasix, Colace, Protonix, Zofran, Miralax, Nystatin, Ferrous Sulfate Goals- Nutrition-related lab values WNL Diarrhea Cessation Continue current diet as tolerated Offer nutritional supplements if po intake avg is < 50%
--- NOTE | 2019-06-23 18:25 | NUR ---
RESTING QUIETLY IN BED WITH HEAD OF BED UP ALMOST 90 DEGREES. OXYGEN 2LNC IN USE. CALL LIGHT IN USE
--- NOTE | 2019-06-23 19:35 | NUR ---
PT IS RESTING IN BED WITH EYES OPEN. ALERT AND ORIENTED X 3. DENIES ACUTE PAIN OR DISCOMFORT AT THIS TIME. NO NEEDS VOICED. INCISION TO LEFT HIP IS CDI. NO DRAINAGE NOTED. 02 IS ON @ 2LPM PER NC. NO SOB NOTED. SR'S ARE UP X 2 IN BED. CALL LIGHT AND BEDSIDE TABLE ARE WITHIN EASY REACH.
--- NOTE | 2019-06-23 21:54 | NUR ---
PT IS RESTING IN BED WATCHING TV. NO NEEDS VOICED.
[2019-06-23 22:21] VITALS: BP 122/53
--- NOTE | 2019-06-24 00:29 | NUR ---
I have reviewed this patient and I concur with the Shift Assessment completed by the Licensed Practical Nurse today this shift.
--- NOTE | 2019-06-24 04:39 | NUR ---
RESTING IN BED WITH EYES CLOSED.
[2019-06-24 07:16] LABS: BASOPHILS 0 % (0-2); EOSINOPHILS 1.3 % (0-7); HEMATOCRIT 25.8 % (36.0-48.0); HEMOGLOBIN 8.2 g/dL (12-16); LYMPHOCYTES 9.6 % (15-50); MCH 30.4 pg (26.0-34.0); MCHC 31.8 g/dL (31.0-37.0); MCV 95.6 fL (80.0-100.0); MEAN PLATELET VOLUME 10.3 fL (7.4-10.4); MONOCYTES 10.2 % (2-11); NEUTROPHILS 78.9 % (40-80); RDW 17.5 % (11.5-14.5); WBC 6.1 10x3/uL (4.8-10.8)
[2019-06-24 07:33] LABS: CALCIUM 8.1 mg/dL (8.5-10.1); CREATININE - SERUM 0.8 mg/dL (0.6-1.3); POTASSIUM - SERUM 3.3 mmol/L (3.5-5.1)
[2019-06-24 07:34] LABS: CARBON DIOXIDE 42.3 mmol/L (21.0-32.0)
[2019-06-24 07:49] LABS: PLATELET COUNT 269 10x3/uL (130-400)
[2019-06-24 08:00] VITALS: BP 118/52
--- NOTE | 2019-06-24 08:00 | NUR ---
shift assmt completed.
--- NOTE | 2019-06-24 16:24 | NUR ---
LEFT CALF HAS HEMATOMA 7CM X 4CM. ESCHAR IS NOTED IN CENTER. DR. OBRIEN HAS BEEN CONSULTED.
[2019-06-24 17:33] VITALS: BP 131/59
--- NOTE | 2019-06-24 19:27 | NUR ---
AWAKE AND ALERT. RESTING IN BED WITH RESPIRATIONS UNLABORED. O2/2L ON PER NASAL CANNULA BLLE'S NOTED WITH EDEMA. DRESSING INTACT TO LEFT LEG. CALL LIGHT IN REACH.
[2019-06-24 20:42] VITALS: BP 109/50
[2019-06-25] VITALS (7 sets, daily range): BP systolic 116–130; BP diastolic 41–81
--- NOTE | 2019-06-25 00:43 | NUR ---
CONTINUES RESTING IN BED WITH RESPRIATIONS UNLABORED.
--- NOTE | 2019-06-25 05:08 | NUR ---
QUIET HOURS. NO ACUTE CHANGES IN CONDITION THIS SHIFT. RESTING IN BED WITH N0 DISTRESS NOTED.
--- NOTE | 2019-06-25 08:00 | NUR ---
REPORT RECIEVED.BREAKFAST GIVEN.CL IN REACH.
--- NOTE | 2019-06-25 20:00 | NUR ---
PATIENT RECEIVED SITTING UP IN BED. NO ADVERSE REACTION TO BLOOD TRANSFUSION AT THIS TIME. ASSESSMENT & VITAL SIGNS DONE. BED LOW. ALARM ON. CALL LIGHT WITHIN REACH. WILL CONTINUE TO MONITOR.
--- NOTE | 2019-06-25 21:20 | NUR ---
2ND UNIT PRBC INFUSING.
--- NOTE | 2019-06-25 23:30 | NUR ---
PATIENT BLOOD TRANSFUSION FINISHED. IV SITE FLUSHED. VITAL SIGNS DONE & RECORDED ON TRANSFUSION SHEET. CALL LIGHT WITHIN REACH. WILL CONTINUE TO MONITOR.
--- NOTE | 2019-06-25 23:30 | NUR ---
PATIENT LEFT CALF DRESSING CHANGED PER ORDER. HARVEY BANDAGES UNWRAPPED & WRAPPED. PATIENT TOILETED. VOID & SMALL BM. PATIENT RETURNED TO BED. BED LOW. CALL LIGHT WITHIN REACH. WILL CONTINUE TO MONITOR.
--- NOTE | 2019-06-26 03:45 | NUR ---
PATIENT EYES CLOSED. RESPIRATIONS 18 & EVEN. 02 2LNC. NO ADVERSE REACTION TO BLOOD TRANSFUSION. BED LOW. CALL LIGHT WITHIN REACH. WILL CONTINUE TO MONITOR.
--- NOTE | 2019-06-26 04:38 | NUR ---
I have reviewed this patient and I concur with the Shift Assessment completed by the Licensed Practical Nurse today this shift.
[2019-06-26 08:43] VITALS: BP 119/56
--- NOTE | 2019-06-26 13:55 | NUR ---
HAS BEEN RESTING THIS MORNING AND IS NOW IN THERAPY. IS GETTING A LITTLE [id number] AND TRANSFERS SELF SLOWLY. SHE STILL HAS TO VOID VERY OFTEN.
--- NOTE | 2019-06-26 16:15 | NUR ---
Nutrition Follow-up: Diet: Cardiac PO intake: 50% x last 3 meals; reports that her appetite is just "alright." She does states that she likes the food. She drinks Ensure Clear at home but does not like the Apple flavor that we carry in the hospital. She has had a friend bring her a different flavor and she is drinking ~1/day. Last BM: 06/26/19 x 2. WT: 200# (06/18/19), no new WT Meds noted: florastor, lasix, linzess, prednisone, miralax. Labs noted: Na 131, K 3.3. Skin: Deep tissue injurty/venous stasis open area Recommend continue current diet and oral nutrition supplements brought from home. Encouraged PO intake. RD following.
--- NOTE | 2019-06-26 17:46 | NUR ---
SITTING UP IN BED EATING SUPPER. STILL HAS TO USE RESTROOM ALMOST EVERY HOUR. HER BLE REMAIN 4+ WITH EDEMA. SHE TIRES EASILY AND REFUSES TO USE WALKER IN ROOM STATING SHE IS TOO TIRED....CALL LIGHT IN REACH
--- NOTE | 2019-06-26 19:42 | NUR ---
PATIENT RECEIVED SITTING UP IN BED COLORING A PICTURE. ASSESSMENT & VIAL SIGNS DONE. NO C/O PAIN OR DISTRESS AT THIS TIME. BED LOW. ALARM ON. CALL LIGHT WITHIN REACH. WILL CONTINUE TO MONITOR.
[2019-06-26 22:10] VITALS: BP 132/51
--- NOTE | 2019-06-27 02:56 | NUR ---
I have reviewed this patient and I concur with the Shift Assessment completed by the Licensed Practical Nurse today this shift.
[2019-06-27 07:36] LABS: BASOPHILS 0 % (0-2); EOSINOPHILS 1.4 % (0-7); HEMATOCRIT 30.2 % (36.0-48.0); HEMOGLOBIN 9.7 g/dL (12-16); IMMATURE GRANULOCYTES 0.4 % (0-5); LYMPHOCYTES 15.8 % (15-50); MCH 30.7 pg (26.0-34.0); MCHC 32.1 g/dL (31.0-37.0); MCV 95.6 fL (80.0-100.0); MEAN PLATELET VOLUME 11.1 fL (7.4-10.4); MONOCYTES 11.7 % (2-11); NEUTROPHILS 70.7 % (40-80); PLATELET COUNT 274 10x3/uL (130-400); RBC 3.16 10x6/uL (4.00-5.40); RDW 18.8 % (11.5-14.5); WBC 4.9 10x3/uL (4.8-10.8)
[2019-06-27 07:43] LABS: ANION GAP 1.2 mmol/L (8-16); CALCIUM 7.7 mg/dL (8.5-10.1); CARBON DIOXIDE 39.7 mmol/L (21.0-32.0); POTASSIUM - SERUM 3.9 mmol/L (3.5-5.1)
[2019-06-27 08:25] VITALS: BP 145/55
--- NOTE | 2019-06-27 14:07 | NUR ---
CARE TEAM MEETING: PATIENT IS PROGRESSING IN THERAPY. TENATIVE DISCHARGE DATE IS 07/04/19. WILL CONTINUE TO FOLLOW WITH PATIENT. DISCHARGE PLANS ARE FOR PATIENT TO RETURN HOME.
--- NOTE | 2019-06-27 14:58 | NUR ---
SITTING AT TABLE IN THERAPY.
--- NOTE | 2019-06-27 19:30 | NUR ---
PT IS RESTING IN BED WITH EYES OPEN. ALERT AND ORIENTED X 3. DENIES ACUTE PAIN OR DISCOMFORT AT THIS TIME. INCISION TO LEFT HIP IS CDI. NO DRAINAGE NOTED. DRESSING TO LEFT CALF IS INTACT. MOD AMOUNT OF BLOODY DRAINAGE NOTED UNDER DRESSING. 4+ EDEMA NOTED TO BLE. HARVEY WRAPS ARE ON AND INTACT. SR'S ARE UP X 2 IN BED. CALL LIGHT AND BEDSIDE TABLE ARE WITHIN EASY REACH.
[2019-06-27 21:50] VITALS: BP 105/48
--- NOTE | 2019-06-27 22:25 | NUR ---
PT IS RESTING QUIETLY IN BED WITH EYES CLOSED. NO ACUTE DISTRESS NOTED.
--- NOTE | 2019-06-28 00:19 | NUR ---
I have reviewed this patient and I concur with the Shift Assessment completed by the Licensed Practical Nurse today this shift.
--- NOTE | 2019-06-28 00:19 | NUR ---
I have reviewed this patient and I concur with the Shift Assessment completed by the Licensed Practical Nurse today this shift.
--- NOTE | 2019-06-28 04:32 | NUR ---
RESTING IN BED WITH EYES CLOSED.
[2019-06-28 07:00] VITALS: BP 98/53
--- NOTE | 2019-06-28 07:45 | NUR ---
A/A/OX4. UP IN W/C AT BEDSIDE. DENIES ANY PAIN OR DISCOMFORT AND VOICES NO REQEUSTS. ASSESSMENT COMPLETED AND WILL CONTINUE POC. HARVEY WRAPS ON LOWER LEGS BILATERALLY. 02 ON PER N/C AT 2 L/M WITH RESP EVEN AND UNLABORED.
--- NOTE | 2019-06-28 15:10 | NUR ---
I have reviewed this patient and I concur with the Shift Assessment completed by the Licensed Practical Nurse today this shift.
--- NOTE | 2019-06-28 19:34 | NUR ---
PT IS RESTING IN BED WITH EYES OPEN. ALERT AND ORIENTED X 3. DENIES ACUTE PAIN OR DISCOMFORT AT THIS TIME. DRESSING TO LLE IS CDI. HARVEY WRAPS TO BLE ARE INTACT. O2 IS ON @ 2LPM PER NC. NO SOB NOTED. SR'S ARE UP X 2 IN BED. CALL LIGHT AND BEDSIDE TABLE ARE WITHIN EASY REACH.
--- NOTE | 2019-06-28 22:14 | NUR ---
PT SHOWERED WITH MIN ASSIST. DRESSED IN A GOWN. BED LINENS CHANGED, AND PT ASSISTED BACK INTO BED. DRESSING TO LLE CHANGED, AND BLE WRAPPED IN HARVEY WRAPS ORDERED. LIGHTS OUT AT THIS TIME.
--- NOTE | 2019-06-29 01:00 | NUR ---
I have reviewed this patient and I concur with the Shift Assessment completed by the Licensed Practical Nurse today this shift.
--- NOTE | 2019-06-29 03:54 | NUR ---
PT ASSISTED TO THE BATHROOM WITH MIN ASSISTED TO THE BATHROOM WITH MIN ASSIST. NOTED WITH A WET COUGH. NO SPUTUM NOTED. EXPIRATORY WHEEZES NOTED IN ALL LUNG LOBES. RIGHT LOWER LOBE IS GREATLY DIMINISHED.
--- NOTE | 2019-06-29 05:56 | NUR ---
PT IS RESTING IN BED WITH EYES OPEN. NO ACUTE DISTRESS NOTED.
[2019-06-29 10:08] VITALS: BP 109/49
--- NOTE | 2019-06-29 14:30 | NUR ---
I have reviewed this patient and I concur with the Shift Assessment completed by the Licensed Practical Nurse today this shift.
--- NOTE | 2019-06-29 19:32 | NUR ---
PT UP IN BATHROOM , JUST FINISHING TOILETING. ASSISTED BACK TO BED WITH MOD ASSIST TO LIFT HER LEGS. 4= PITTING EDEMA NOTED TO BLE. HARVEY WRAPS ARE ON AND INTACT. SALING LOCK NOTED TO RIGHT WRIST. O2 IS ON @ 2LPM PER NC. NO SOB NOTED. PT HAS EXP WHEEZES X 4 LUNG LOBES. RIGHT LOWER LOBE IS HAS VERY DIMINISHED LUNG SOUNDS. SR'S ARE UP X 2 IN BED. CALL LIGHT AND BEDSIDE TABLE ARE WITHIN EASY REACH.
[2019-06-29 21:12] VITALS: BP 124/58
--- NOTE | 2019-06-29 23:35 | NUR ---
RESTING IN BED WITH EYES CLOSED.
--- NOTE | 2019-06-30 01:07 | NUR ---
I have reviewed this patient and I concur with the Shift Assessment completed by the Licensed Practical Nurse today this shift.
--- NOTE | 2019-06-30 05:55 | NUR ---
PT ASSISTED TO THE BATHROOM WITH MIN ASSIST. NO FURTHER NEEDS VOICED.
[2019-06-30 07:33] LABS: BASOPHILS 0.2 % (0-2); HEMATOCRIT 30.6 % (36.0-48.0); HEMOGLOBIN 9.6 g/dL (12-16); IMMATURE GRANULOCYTES 0.4 % (0-5); LYMPHOCYTES 17.9 % (15-50); MCH 30.1 pg (26.0-34.0); MCHC 31.4 g/dL (31.0-37.0); MCV 95.9 fL (80.0-100.0); MEAN PLATELET VOLUME 9.9 fL (7.4-10.4); MONOCYTES 15.8 % (2-11); NEUTROPHILS 63.7 % (40-80); PLATELET COUNT 298 10x3/uL (130-400); RBC 3.19 10x6/uL (4.00-5.40); RDW 18.5 % (11.5-14.5); WBC 4.6 10x3/uL (4.8-10.8)
[2019-06-30 07:50] LABS: ANION GAP 1.2 mmol/L (8-16); CALCIUM 8.1 mg/dL (8.5-10.1); CARBON DIOXIDE 36.6 mmol/L (21.0-32.0); CREATININE - SERUM 0.8 mg/dL (0.6-1.3); POTASSIUM - SERUM 3.8 mmol/L (3.5-5.1)
[2019-06-30 08:14] VITALS: BP 130/73
--- NOTE | 2019-06-30 14:52 | NUR ---
SITTING IN CHAIR IN ROOM. OXYGEN IN PLACE. STATES SHE IS TIRED AND WEAK BUT IS STRONGER THAN ADMISSION.
--- NOTE | 2019-06-30 20:00 | NUR ---
PT IS SITTING IN A WC IN HER ROOM. ALERT AND ORIENTED X 3. VOICED COMPLAITN OF LEG PAIN LEVEL OF 7. MEDICATED PER MAR. O2 IS ON @ 2LPM PER NC. NO SOB NOTED. LEFT WRIST SALINE LOCK NOTED. 4+ EDEMA NOTED TO BLE. HARVEY WRAPS ARE ON AND INTACT. TREMORS NOTED TO BUE. PT ASSISTED TO THE BATHROOM WITH MIN ASSIST, AND THEN TO BED WITH MOD ASSIST. SR'S ARE UP X 2 IN BED. CALL LIGHT AND BEDSIDE TABLE ARE WITHIN EASY REACH.
[2019-06-30 20:52] VITALS: BP 124/49
--- NOTE | 2019-06-30 22:38 | NUR ---
PT IS RESTING QUIETLY IN BED WITH EYES CLOSED. RESPS ARE EVEN AND UNLABORED. NO ACUTE DISTRESS NOTED.
--- NOTE | 2019-07-01 00:21 | NUR ---
I have reviewed this patient and I concur with the Shift Assessment completed by the Licensed Practical Nurse today this shift.
--- NOTE | 2019-07-01 04:01 | NUR ---
PT UP TO SHOWER WITH MANAGER WASTEWATER PER HER REQUEST. MARRY SHOWER GIVEN WITH MIN ASSIST. DRESSING TO LEFT CALF CHANGED AFTER SHOWER.
[2019-07-01 07:52] VITALS: BP 116/45
--- NOTE | 2019-07-01 13:42 | NUR ---
Nutrition Follow-up: Diet: Cardiac (No: corn, rice, salad, nuts, or beans) PO intake: none recorded recently, was ~50% on 06/25/19-06/26/19. Patient reports that her appetite is "okay", she denies any needs from dietary department at this time. She is drinking Ensure Clear brought from home "sometimes." Last BM: 07/01/19 x 2. WT: 200# (06/18/19); no new weight Meds noted: prednisone, lasix, florastor, linzess, miralax. Labs reviewed. Recommend continue current diet. Encouraged PO intake. Encouraged intake of Ensure Clear as able. Recommend getting new weight on patient. RD following.
--- NOTE | 2019-07-01 13:44 | NUR ---
SITTING UP IN WC IN ROOM. STILL HAS TREMORS TO HANDS BUT DOES NOT SEEM BAD YESTERDAY. DR LEI AWARE OF TREMORS.
--- NOTE | 2019-07-01 15:50 | NUR ---
SPOKE WITH PATIENT TODAY AND SHE FFELS THAT SHE IS NOT SAFE TO DISCHARGE HOME.HER BROTHER WANTS HER ON HOSPICE. PATIENT IS CONSIDERING TO DISCHARGE TO THE [facility]. WILL CONTINUE TO FOLLOW WITH PATIENT AND WILL ASSIST WITH HER NEEDS.
--- NOTE | 2019-07-01 19:38 | NUR ---
AWAKE AND ALERT. RESITNG IN BED WITH RESPRIATIONS UNLABORED. 4+ EDEMA NOTED IN BILATERAL LOWER EXTREMITIES. NO ACUTE DISTRESS NOTED. CALL LIGHT IN REACH.
[2019-07-01 21:04] VITALS: BP 106/61
--- NOTE | 2019-07-02 00:57 | NUR ---
RESTING IN BED WITH EYES CLOSED AND RESPIRATIONS UNLABORED. NO DISTRESS NOTED. CALL LIGHT IN REACH.
--- NOTE | 2019-07-02 03:11 | NUR ---
SLEEPING AFTER BEING MEDICATED FOR PAIN. SEE MAR. NO DISTRESS NOTED.
--- NOTE | 2019-07-02 05:33 | NUR ---
QUIET HOURS. NO ACUTE CHANGES IN CONDITION THIS SHIFT. WAS JUST UP TO BATHROOM AND BACK TO BED. NO ACUTE DISTRESS NOTED. CALL LIGHT IN REACH.
[2019-07-02 06:47] LABS: CARBON DIOXIDE 33.2 mmol/L (21.0-32.0); CREATININE - SERUM 0.8 mg/dL (0.6-1.3); POTASSIUM - SERUM 4.2 mmol/L (3.5-5.1)
[2019-07-02 07:37] LABS: BASOPHILS 0.2 % (0-2); EOSINOPHILS 1.2 % (0-7); HEMATOCRIT 30.4 % (36.0-48.0); HEMOGLOBIN 9.5 g/dL (12-16); IMMATURE GRANULOCYTES 0.2 % (0-5); LYMPHOCYTES 18.6 % (15-50); MCH 30.6 pg (26.0-34.0); MCHC 31.3 g/dL (31.0-37.0); MEAN PLATELET VOLUME 10.5 fL (7.4-10.4); MONOCYTES 15.2 % (2-11); NEUTROPHILS 64.6 % (40-80); PLATELET COUNT 250 10x3/uL (130-400); RDW 18.2 % (11.5-14.5)
[2019-07-02 07:38] LABS: MCV 98.1 fL (80.0-100.0)
[2019-07-02 07:57] VITALS: BP 114/54
--- NOTE | 2019-07-02 20:33 | NUR ---
AWAKE AND ALERT. SITTING IN WHEELCHAIR TALKING WITH VISITORS. RESPIRATIONS UNLABORED. CONTINUES TO HAVE 4+ EDEMA IN BILATERAL LOWER EXTREMITIES. NO ACUTE DISTRESS NOTED. CALL LIGHT IN REACH.
[2019-07-02 22:06] VITALS: BP 120/48
--- NOTE | 2019-07-03 01:19 | NUR ---
RESTING IN BED WITH RESPIRATIONS UNLABORED. NO DISTRESS NOTED.
--- NOTE | 2019-07-03 05:24 | NUR ---
ASSISTED TO BATHROOM AND BACK TO BED. NO ACUTE DISTRESS NOTED. NO ACUTE CHANGES IN CONDITION.
--- NOTE | 2019-07-03 08:00 | NUR ---
SHIFT ASSMT COMPLETED.
[2019-07-03 08:59] VITALS: BP 110/65
--- NOTE | 2019-07-03 12:00 | NUR ---
SITTING UP IN CHAIR EATING LUNCH.
--- NOTE | 2019-07-03 16:00 | NUR ---
PLAN FOR DC [facility].
--- NOTE | 2019-07-03 16:41 | NUR ---
CARE TEAM MEETING: PATIENT HAS BEEN ACCEPTED TO THE [facility] AND WILL DISCHARGE [facility]A [facility]IA [facility] ON 07/04/19. WILL CONTINUE TO FOLLOW WITH PATIENT.
--- NOTE | 2019-07-03 19:48 | NUR ---
AWAKE AND ALERT. RESPIRATIONS UNLABORED. SITTING IN WHEELCHAIR TALKING WITH VISITOR. BILATERAL LOWER LEGS WRAPPED AND DRESSED. NO ACUTE DISTRESS NOTED. NO NEEDS VOICED.
[2019-07-03 20:14] VITALS: BP 103/54
--- NOTE | 2019-07-04 01:32 | NUR ---
RESTING IN BED WITH NO DISTRESS NOTED. CALL LIGHT IN REACH.
--- NOTE | 2019-07-04 05:03 | NUR ---
QUIET HOURS. NO ACUTE CHANGES IN CONDITION THIS SHIFT. NO DISTRESS NOTED. LEGS SWOLLEN STILL. REDRESSED. CALL LIGHT IN REACH.
[2019-07-04] MEDS ORDERED: ULTRAM50 MG PO (09:08)
[2019-07-04] MEDS ORDERED: K-DUR20 MEQ PO (09:09)
[2019-07-04] MEDS ORDERED: PREDNISONE5 MG PO (09:09)
--- NOTE | 2019-07-04 10:39 | NUR ---
PATIENT DISCHARGING TO THE [facility]. NO HOME HEALTH OR DME NEEDED AT THIS TIME.AN APPOINTMENT WITH DR. PALMER HERRERA AND DR. OBRIEN WILL BE MADE AT TIEM OF DISCHARGE FROM THE FACILITY. PATIENT CHOICE FORM FOR SNF SIGNED, PATIENT DECLINED COMPARE DATA ON SNF. [facility] FORM SIGNED, EXPLIANED, COPY GIVEN TO PATIENT AND ONE FILED IN CHART. DISCHARGE INSTRUCTIONS FAXED TO PCP, SNF AND REVIEWED WITH PATIENT.
[2019-07-04 11:25] VITALS: BP 110/41
--- NOTE | 2019-07-04 13:46 | NUR ---
DC TO [place] WITH ALL PERSONAL BELONGINGS. REPORT CALLED TO IAN FAUSTIN AT FACILITY. CYLINDER TESTER FOR [facility] CAME GOT PT. PAPERWORK AND PRESCRIPTION SENT WITH PT.
== END 2019-07-04 17:58 | DRG 559 ==
LOC: D.REHAB 15:44
PROVIDERS: ADMIT Emergency Medicine; ATTEND Emergency Medicine
DX: S72.002D Fracture of unspecified part of neck of left femur, subsequent encounter for closed fracture with routine healing (principal); J69.0 Pneumonitis due to inhalation of food and vomit; E44.0 Moderate protein-calorie malnutrition; J44.1 Chronic obstructive pulmonary disease with (acute) exacerbation; D62 Acute posthemorrhagic anemia; W19.XXXD Unspecified fall, subsequent encounter; R09.02 Hypoxemia; E87.6 Hypokalemia; E87.8 Other disorders of electrolyte and fluid balance, not elsewhere classified; K59.00 Constipation, unspecified; M19.90 Unspecified osteoarthritis, unspecified site; J45.909 Unspecified asthma, uncomplicated; I48.91 Unspecified atrial fibrillation; R00.0 Tachycardia, unspecified; E78.5 Hyperlipidemia, unspecified; I10 Essential (primary) hypertension

== ENCOUNTER 2019-10-12 15:41 | Emergency (ER) | payer MEDICARE, BC ==
[~2019-10-12] VITALS: Ht 160 cm; Wt 90.7 kg
[~2019-10-12 15:41] MED LIST changes: +K-DUR20 MEQ PO; +PREDNISONE5 MG PO
[2019-10-12 15:48] VITALS: Ht 160 cm; Wt 90.7 kg
[2019-10-12 16:35] LABS: BASOPHILS 0.3 % (0-2); EOSINOPHILS 2.7 % (0-7); HEMATOCRIT 38.2 % (36.0-48.0); HEMOGLOBIN 11.6 g/dL (12-16); IMMATURE GRANULOCYTES 0.2 % (0-5); LYMPHOCYTES 21.8 % (15-50); MCH 29.5 pg (26.0-34.0); MCHC 30.4 g/dL (31.0-37.0); MCV 97.2 fL (80.0-100.0); MEAN PLATELET VOLUME 10.7 fL (7.4-10.4); MONOCYTES 11.9 % (2-11); NEUTROPHILS 63.1 % (40-80); PLATELET COUNT 253 10x3/uL (130-400); RBC 3.93 10x6/uL (4.00-5.40); RDW 15.2 % (11.5-14.5); WBC 6.6 10x3/uL (4.8-10.8)
[2019-10-12 16:41] LABS: APTT 32.1 SECONDS (22.8-39.4); INR 1.05 (0.85-1.17); PROTIME 13.7 SECONDS (11.6-15.0)
[2019-10-12 16:44] LABS: CALC OSMOLALITY 277 mosm/kg (275-300); CALCIUM 8.6 mg/dL (8.5-10.1); CARBON DIOXIDE 36.2 mmol/L (21.0-32.0); CHLORIDE - SERUM 99 mmol/L (98-107); CREATININE - SERUM 0.9 mg/dL (0.6-1.3); GLUCOSE 110 mg/dL (74-106); POTASSIUM - SERUM 4.3 mmol/L (3.5-5.1); SODIUM 137 mmol/L (136-145); UREA NITROGEN 22 mg/dL (7-18); eGFR NON AFRICAN AMERICAN 65 mL/min (90-120)
[2019-10-12 17:00] LABS: ALBUMIN 2.6 g/dL (3.4-5.0); ALKALINE PHOSPHATASE 161 U/L (30-120); ALT (SGPT) 21 U/L (10-68); CKMB 0.5 U/L (0.0-3.6); CREATINE KINASE 33 UL (21-215); PRO BNP 1284 pg/mL (0-450); PROTEIN - SERUM 6.8 g/dL (6.4-8.2); TROPONIN-I < 0.017 ng/mL (0.000-0.060)
[2019-10-12 19:47] VITALS: BP 136/91
== END 2019-10-12 19:47 | disposition home or self-care (01) ==
LOC: D.ER 15:41
PROVIDERS: Family Medicine
DX: J44.1 Chronic obstructive pulmonary disease with (acute) exacerbation (principal); Z72.0 Tobacco use

== ENCOUNTER 2019-10-26 15:57 | Inpatient (IN) | payer MEDICARE, BC ==
[~2019-10-26] VITALS: Ht 160 cm; Wt 97.5 kg
[2019-10-26 16:28] LABS: HEMATOCRIT 38.8 % (36.0-48.0); HEMOGLOBIN 11.7 g/dL (12-16); MCH 28.6 pg (26.0-34.0); MCHC 30.2 g/dL (31.0-37.0); MCV 94.9 fL (80.0-100.0); MEAN PLATELET VOLUME 10.5 fL (7.4-10.4); NEUTROPHILS 79.7 % (40-80); RBC 4.09 10x6/uL (4.00-5.40); RDW 14.7 % (11.5-14.5); WBC 8.5 10x3/uL (4.8-10.8)
[2019-10-26 16:30] LABS: PLATELET COUNT 202 10x3/uL (130-400)
[2019-10-26 16:47] LABS: CALC OSMOLALITY 270 mosm/kg (275-300); CALCIUM 8.7 mg/dL (8.5-10.1); CHLORIDE - SERUM 95 mmol/L (98-107); CREATININE - SERUM 1.2 mg/dL (0.6-1.3); GLUCOSE 112 mg/dL (74-106); POTASSIUM - SERUM 3.8 mmol/L (3.5-5.1); SODIUM 134 mmol/L (136-145); UREA NITROGEN 18 mg/dL (7-18); eGFR NON AFRICAN AMERICAN 46 mL/min (90-120)
[2019-10-26 16:48] LABS: INR 0.86 (0.85-1.17); PROTIME 11.7 SECONDS (11.6-15.0)
[2019-10-26 17:07] LABS: ALBUMIN 2.9 g/dL (3.4-5.0); ALKALINE PHOSPHATASE 177 U/L (30-120); ALT (SGPT) 22 U/L (10-68); BILIRUBIN - TOTAL 0.71 mg/dL (0.2-1.3); CKMB 0.9 U/L (0.0-3.6); CREATINE KINASE 28 UL (21-215); LIPASE 101 U/L (73-393); MAGNESIUM - SERUM 2.1 mg/dL (1.8-2.4); PROTEIN - SERUM 7.1 g/dL (6.4-8.2)
[2019-10-26 17:11] LABS: TROPONIN-I < 0.017 ng/mL (0.000-0.060)
--- NOTE | 2019-10-26 19:35 | NUR ---
PT ARRIVED TO ROOM 2125 @ 1930 FROM ER ON STRETCHER. INSTRUCTED DRY CLEANER HAND LIGHT USE, SAFETY.
--- NOTE | 2019-10-26 20:00 | NUR ---
ADMISSION ASSESSMENT AND HISTORY COMPLETED. HOME MEDS REVIEWED AND UPDATED PER LIST THAT PATIENT SUPPLIED. COPY PLACED ON CHART. PT TEACHING ON PLAN OF CARE.
--- NOTE | 2019-10-26 22:37 | NUR ---
MEDICATIONS GIVEN. ABT STARTED. IV SOLUMEDROL GIVEN. PT ALSO HAS EATEN A SANDWICH TRAY AND IS NOW RESTING. O2 @ 2L/NC.
[2019-10-27] VITALS (7 sets, daily range): BP systolic 118–146; BP diastolic 65–83; Ht 160 cm; Wt 97.5 kg
[2019-10-27] MEDS ORDERED: ASPIRIN EC325 M1 PO (07:41)
--- NOTE | 2019-10-27 09:13 | NUR ---
AM MEDS GIVEN AT THIS TIME. PT RESTING COMFORTABLY IN BED, PT A/O X4, AUDIBLE WHEEZING NOTED. LT FA IV TO INFUSE NS AT 75CC/HR. MONITOR SHOWING UAF WITH RATE OF 121. PT DENIES ANY NEEDS AT THIS TIME. CALL LIGHT IN REACH,NAD NOTED,W ILL CONTINUE PLAN OF CARE.
--- NOTE | 2019-10-27 10:40 | NUR ---
CALLED DR. NDIAYE'S OFFICE AND LEFT MESSAGE WITH TRISTIN FOR DR. NDIAYE TO CALL ME BACK.
--- NOTE | 2019-10-27 11:38 | NUR ---
LT FA IV LEAKING. D/C IV WITH CATHETER TIP INTACT. NEW 20G IV STARTED TO RT FA X2 STICKS. PT DENIES ANY NEEDS AT THIS TIME, CALLL LIGHT IN REACH, NAD NOTED, WILL CONTINUE TO MONITOR.
--- NOTE | 2019-10-27 13:49 | HP ---
PATIENT: RON ALBERTO MEDICAL RECORD: [id number] ACCOUNT: [id number] LOCATION:[address] : 43 ADMISSION DATE: 10/26/19 PCP: PALMER BAKER MD HISTORY AND PHYSICAL EXAMINATION REASON FOR ADMISSION: Back pain and cough. HISTORY OF PRESENT ILLNESS: The patient is a 73-year-old female, followed by pulmonary and cardiology clinic at [facility]. She has longstanding history of smoking. Unfortunately, she continues to do so. She was seen by the PIPE FITTER SUPERVISOR in Pulmonary Clinic 10 days ago and was placed on doxycycline and dismissed Symbicort and HHN q.6 hours. She finished her antibiotics but it has not gotten any better, was having some pleuritic type lower back pain, cough productive of yellow-green sputum. She again admits to smoking. She denies fever. She also has history of PAF and chronic lymphedema in both legs, left greater than right. She goes to the wound clinic and now has a wound VAC attached to her left leg. She denies chest pain. PAST MEDICAL HISTORY: Gastritis, diverticulitis, COPD, cerebral vascular disease, asthma, anxiety, nicotine abuse, recurrent urinary tract infections, diverticulitis large intestine, and PAF with RVR. FAMILY HISTORY: Noncontributory. SOCIAL HISTORY: Still smokes about a third of pack of cigarettes a day, does not drink alcohol. HOME MEDICATIONS: Listed in the EMR. REVIEW OF SYSTEMS: GENERAL: No fever or fatigue. RESPIRATORY: She has had intermittent cough, congestion with off-colored colored sputum for the last 10 days, not responding to doxycycline. Denies hemoptysis. Does have pleuritic type chest pain in her lower posterior chest when she coughs. CARDIAC: No exertional chest pain, claudication, or recent palpitations. She has chronic lymphedema. GASTROINTESTINAL: No nausea, vomiting, change in stools or blood per rectum. GENITOURINARY: Mild incontinence, no dysuria. GYNECOLOGIC: No vaginal bleeding. ENDOCRINE: Denies polyuria, polydipsia, heat or cold intolerance. NEUROLOGIC: History of remote TIA. No history of stroke, memory loss, motor or sensory deficits. INTEGUMENT: No rash or itching. PSYCHIATRIC: Denies depressed mood. PHYSICAL EXAMINATION: VITAL SIGNS: O2 sats 99% on room air, blood pressure 130/80, heart rate is 90 and regular. She is afebrile. HEENT: Eyes are clear. Oropharynx unremarkable. NECK: Supple. CHEST: Shows audible wheezes on inspiration and expiration bilaterally, but good air movement. No crackles appreciated. ABDOMEN: Soft, nontender. EXTREMITIES: Shows marked lymphedema bilaterally, left greater than right. She HISTORY AND PHYSICAL [id number] RON ALBERTO has a wound VAC in the left lower extremity attached. NEUROLOGICAL: Oriented to person, place, and time. Cranial nerves intact. Gait was not tested; however, no motor deficits are appreciated. LABORATORY DATA: Chest x-ray shows COPD changes. Radiologist called bilateral lower lobe pneumonia. I do not see that. Labs are currently pending. ASSESSMENT: 1. Exacerbation of COPD, failing outpatient treatment. 2. Hypoxemia. 3. COPD, O2 dependent, hypertension, hyperlipidemia, history of gastritis, arthritis, asthma, nicotine abuse, PAF, and chronic back pain. PLAN: The patient will be admitted to the hospital for pulmonary toilet, IV Zithromax, Lasix therapy for lymphedema. Further workup pending clinical course. TRANSINT:[id number] Voice Confirmation ID: [id number] DOCUMENT ID: [id number] KONSTANTIN NDIAYE MD at 1349 CC: [id number] DICTATION DATE: 10/26/192228 SOFTWARE RELIABILITY ENGINEER: 10/26/19 2315 ADM IN [place] [id number] [place] [address]
--- NOTE | 2019-10-27 15:11 | NUR ---
PT UP TO CHAIR, DENIES ANY NEEDS AT THIS TIME. CALL LIGHT IN REACH, NAD NOTED, WILL CONTINUE TO MONITOR.
[2019-10-28] VITALS: BP 139/70
--- NOTE | 2019-10-28 00:26 | NUR ---
ULTRAM 1 TAB GIVEN FOR C/O PAIN TO BACK, RATES PAIN AT A 7 ON PAIN SCALE.
--- NOTE | 2019-10-28 03:05 | NUR ---
I have reviewed this patient and I concur with the Shift Assessment completed by the Licensed Practical Nurse today this shift.
[2019-10-28 04:00] VITALS: BP 131/65
--- NOTE | 2019-10-28 07:20 | NUR ---
RECIEVE REPORT. ALERT AND ORIENTED X4. USING RESTROOM. DENIES ANY NEEDS. CONTINUE PLAN OF CARE AND SAFETY PRECAUTIONS.
[2019-10-28 09:00] VITALS: BP 120/82
--- NOTE | 2019-10-28 11:51 | NUR ---
Rehab Note- Acute Inpatient Rehab prescreen order received. The patient has a pending PT Eval and will await to see what her functional mobility is at this time. Will follow, thank you for this referral! Mary La RN Clinical Liaison, [facility] Rehab
[2019-10-28 12:17] VITALS: BP 136/85
[2019-10-28 15:00] VITALS: BP 134/77
[2019-10-28 20:00] VITALS: BP 132/70
[2019-10-29] VITALS: BP 126/67
--- NOTE | 2019-10-29 00:32 | NUR ---
CL ANSWERED, PT SITTING UP ON SIDE OF BED, ASKING FOR A SHOWER. PT DISCONNECTED HER WOUND VAC, DRSG TO LEFT LEG COVERED WITH PLASTIC BAG AND TAPED, IV COVERED, MT NOTIFIED THAT PT WILL BE OFF TELEMETRY FOR A WHILE TO TAKE A SHOWER. SMUDGER AT BED SIDE TO ASSIST PT WITH SHOWER.
--- NOTE | 2019-10-29 01:09 | NUR ---
I have reviewed this patient and I concur with the Shift Assessment completed by the Licensed Practical Nurse today this shift.
--- NOTE | 2019-10-29 02:14 | NUR ---
RESTING WITH EYES CLOSED, RESPERATIONS EVEN, NO S/S DISTRESS NOTED.
[2019-10-29 04:00] VITALS: BP 152/61
--- NOTE | 2019-10-29 07:20 | NUR ---
RECIEVE REPORT. ALERT AND ORIENTED X4. SITTING UP IN BED. DENIES ANY NEEDS. CONTINUE PLAN OF CARE AND SAFETY PRECAUTIONS.
[2019-10-29 09:00] VITALS: BP 127/64
[2019-10-29 11:00] VITALS: BP 119/72
--- NOTE | 2019-10-29 13:54 | NUR ---
Nutrition Follow-up: Pt reports good/fair PO intake. States she ate ~50% of breakfast this AM. Diet: Cardiac PO intake: 50-100% Wt: 204# (10/26) No new labs Meds noted: Solumedrol, Linzess, Lasix, KDur, Miralax -Encourage PO intake and honor food preferences within diet restrictions. -Monitor wt. -RD following.
[2019-10-29 15:00] VITALS: BP 129/75
--- NOTE | 2019-10-29 16:09 | NUR ---
ALERT AND ORIENTED X4. SITTING UP ON SIDE OF BED. REPORTS CONTACTED WOUND CLINIC REGARDING WOUND VAC AND ARE SUPPOSE TO COME CHANGE DRESSING AND SWAP OUT MACHINE. CALL TO VALIDATE. WOUND CONSULT PLACED PER . "OK TO USE OTHER EQUIPMENT UNTIL DISCHARGED BECAUSE THE CLINIC SHE GOES TO DOES NOT HAVE PRIVILEGE AT THIS HOSPITAL," PER VIA TELEPHONE. INFORM ASHWIN SANDERS WITH WOUND CARE OF WOUND VAC NEEDED FOR LT LOWER EXTREMITY.
--- NOTE | 2019-10-29 16:48 | NUR ---
PT ADMITTED TO HOSP WITH E[facility] VAC 10/25. IT HAS BEEN 7 DAYS SINCE PLACEMENT (AT [facility]) AND THE BATTERY HAS . [facility] CALLED FOR REPLACEMENT AND IT WAS NOTED THAT THEY DO NOT HAVE HOSP PRIVILEDGES HERE. SO ENEIDA DRESSING WAS REMOVED AND A WOUND VAC ULTA WAS APPLIED TO WOUND ON LEFT LOWER LEG. MEASUREMENTS 4CM X 3CM X 1CM. WOUND BED IS PALE PINK. EDGES ROLLED. SLIGHT ODOR. UNKNOWN AMOUNT OF DRAINAGE, ENEIDA DOES NOT HAVE A CANISTER. 1 BLACK SPONGE WAS USED. SETTINGS -125MMHG LOW CONTINUOUS. [id number] PT TOLERATED WELL.
[2019-10-29 20:00] VITALS: BP 128/82
[2019-10-30] VITALS: BP 126/69
--- NOTE | 2019-10-30 03:42 | NUR ---
I have reviewed this patient and I concur with the Shift Assessment completed by the Licensed Practical Nurse today this shift.
[2019-10-30 04:00] VITALS: BP 124/73
--- NOTE | 2019-10-30 07:10 | NUR ---
REPORT RECEIVED FROM WRITING TUTOR AND PATIENT CARE ASSUMED. PATIENT SITTING UP IN BED AWAKE, ALERT AND ORIENTED X 4. PATIENT IS STABLE AND VSS. PATIENT DENIES ANY NEEDS OR PAIN. WILL CONTINUE WITH PLAN OF CARE. SR UPX 2 BED IN LOW POSITION AND CALL LIGHT IN REACH.
[2019-10-30 07:18] LABS: ANION GAP 4.8 mmol/L (8-16); CALCIUM 8.1 mg/dL (8.5-10.1); CARBON DIOXIDE 33.9 mmol/L (21.0-32.0); CREATININE - SERUM 1.2 mg/dL (0.6-1.3); POTASSIUM - SERUM 4.7 mmol/L (3.5-5.1)
[2019-10-30 07:27] LABS: BASOPHILS 0 % (0-2); EOSINOPHILS 0 % (0-7); HEMATOCRIT 35.4 % (36.0-48.0); HEMOGLOBIN 10.6 g/dL (12-16); IMMATURE GRANULOCYTES 0.2 % (0-5); LYMPHOCYTES 8.6 % (15-50); MCH 28.1 pg (26.0-34.0); MCHC 29.9 g/dL (31.0-37.0); MCV 93.9 fL (80.0-100.0); MEAN PLATELET VOLUME 12.6 fL (7.4-10.4); MONOCYTES 4.1 % (2-11); NEUTROPHILS 87.1 % (40-80); PLATELET COUNT 167 10x3/uL (130-400); RBC 3.77 10x6/uL (4.00-5.40); RDW 15.1 % (11.5-14.5); WBC 4.4 10x3/uL (4.8-10.8)
--- NOTE | 2019-10-30 08:15 | NUR ---
PATIENT IS STABLE AND VSS. PATIENT DENIES ANY NEEDS OR PAIN. PATIENT TO [employer] HUSB[employer]Y WORKER VIA HOSPTIAL BED ACCOMAPNIED BY HOSPTIAL STAFF.
[2019-10-30 09:12] VITALS: BP 125/79
--- NOTE | 2019-10-30 09:30 | NUR ---
PATIENT RETURNED TO ROOM VIA HOPSITAL BED ACCOMPANIED WELCOME HOSTESS STAFF. PATIENT LAYING FLAT WITH LEGS STRAIGHT EYES CLOSED AND BREATHING EVENLY. PATIENT AROUSE TO VOICE. PATIENT REQUESTS SPRITE. RT GROIN DRSG C/D/I. NO SIGNS OF BLEEDING , BRUSING OR HEMATOMA. GAVE PATIENT SPRITE TO DRINK. FREQUENT VS IN PLACE. WILL CONTINUE TO MONITOR. SR UP X 2 BED IN LOW POSITION AND CALL LIGHT IN REACH.
--- NOTE | 2019-10-30 10:10 | NUR ---
PATIENT CONTINUES TO LAY FLAT WITH LEGS STRAIGHT WITH EYES CLOSED AND BREATHING EVENLY. RT GROIN DRSG C/D/I NO SIGNS OF BLEEDING , BRUISING OR HEMATOMA. VSS. WILL CONTINUE TO MONITOR. SR UP X 2 BED IN LOW POSITION AND CALL LIGHT IN REACH.
--- NOTE | 2019-10-30 11:53 | NUR ---
PATIENT RESTING FLAT IN BED WITH EYES CLOSED AND BREATHING EVENLY. VSS. RT GROIN SOFT. NO SIGNS OF BLEEDING BRUISING OR HEMATOMA. WILL CONTINUE TO MONITOR. SR UP X 2 BED IN LOW POSITION AND CALL LIGHT IN REACH.
--- NOTE | 2019-10-30 14:53 | MORECARE ---
CASE MANAGEMENT DISCHARGE SUMMARY PATIENT: RON ALBERTO UNIT: [id number] ADM DATE: 10/26/19 AGE: 73 : 43 SEX: F ROOM/BED: D.2060 AUTHOR: THERESE KNIGHT PHYSICIAN: REFERRING PHYSICIAN: KONSTANTIN NDIAYE MD DATE OF SERVICE: 10/30/19 Discharge Plan Patient Name: RON ALBERTO Facility: [facility]:[place] : 1945 Planned Disposition: Anticipated Discharge Date: Discharge Date: Expected LOS: Initial Reviewer: [email or web address] Initial Review Date: 10/26/2019 Generated: 10/30/19 3:52 pm Patient Name: RON ALBERTO Page 60598 at 1453 All edits/amendments must be made on the electronic document DICTATION DATE: 10/30/191451 CRYSTAL EVALUATOR: VELMA 10/30/191451 RPT#: [id number] DC DATE: STATUS: ADM IN [facility] [address] [place] [address] END OF REPORT
--- NOTE | 2019-10-30 15:02 | MORECARE ---
CASE MANAGEMENT DISCHARGE SUMMARY PATIENT: RON ALBERTO UNIT: [id number] ADM DATE: 10/26/19 AGE: 73 : 43 SEX: F ROOM/BED: D.2291 AUTHOR: THERESE KNIGHT PHYSICIAN: REFERRING PHYSICIAN: KONSTANTIN NDIAYE MD DATE OF SERVICE: 10/30/19 Discharge Plan Patient Name: RON ALBERTO [facility] [facility] 1945 Planned Disposition: Anticipated Discharge Date: Discharge Date: Expected LOS: Initial Reviewer: [email or web address] Initial Review Date: 10/26/2019 Generated: 10/30/19 4:01 pm DCPIA - Discharge Planning Initial Assessment Updated by [email or web address]: Lis Fisher on 10/30/19 2:53 pm * Is the patient Alert and Oriented? Yes * How many steps to enter\exit or inside your home? 0/0 * PCP Elvie Steele * Pharmacy [facility] * Preadmission Environment Care Home Facility * Facility Name [facility] * ADLs Partial Dependent * Partial ADLs (Assistance needed) Ambulation Medication Management * Equipment Cane Nebulizer Oxygen Rolling Walker Shower Chair Walker Wheelchair Wound Supplies Wound Vac * List name and contact numbers for known caregivers / representatives who currently or will assist patient after discharge: Nancy Smith * Verbal permission to speak to the caregivers and representatives has been obtained from the patient. Yes * Community resources currently utilized Home Health * Please name any agencies selected above. care iv * Additional services required to return to the preadmission environment? Yes * Can the patient safely return to the preadmission environment? No * Has this patient been hospitalized within the prior 30 days at any hospital? No Last DP export: 10/30/19 1:53 p Patient Name: RON ALBERTO Page 77628 at 1502 All edits/amendments must be made on the electronic document DICTATION DATE: 10/30/19 1501 FACULTY NEUROPSYCHOLOGIST: VELMA 10/30/19 1501 RPT#: [id number] DC DATE: STATUS: ADM IN [facility] [address] [place] [address] END OF REPORT
[2019-10-30 15:23] VITALS: BP 118/57
--- NOTE | 2019-10-30 15:25 | NUR ---
PATIENT TRANSFERRED TO BED WITH ASSISTANCE. PATIENT IS STABLE AND VSS. PATIENT DENIES ANY NEEDS OR PAIN. RT GROIN DRSG C/D/I. NO SIGNS OF BLEEDING BRUISING, OR HEMATOMA. WILL CONTINUE TO MONITOR. SR UP X 2 BED IN LOW POSITION AND CALL LIGHT IN REACH.
--- NOTE | 2019-10-30 15:36 | MORECARE ---
CASE MANAGEMENT DISCHARGE SUMMARY PATIENT: RON ALBERTO UNIT: [id number] ADM DATE: 10/26/19 AGE: 73 : 43 SEX: F ROOM/BED: D.4263 AUTHOR: THERESE KNIGHT PHYSICIAN: REFERRING PHYSICIAN: KONSTANTIN NDIAYE MD DATE OF SERVICE: 10/30/19 Discharge Plan Patient Name: RON ALBERTO Facility: [facility]:[place] : 1945 Planned Disposition: Anticipated Discharge Date: Discharge Date: Expected LOS: Initial Reviewer: [email or web address] Initial Review Date: 10/26/2019 Generated: 10/30/19 4:36 pm Comments DCP- Discharge Planning Updated by [email or web address]: Lis Fisher on 10/30/19 2:[address] Patient Name: RON ALBERTO Admission Status: ER Accout number: [id number] Admission Date: 10-26-2019 : 1945 Admission Diagnosis:CHRONIC OBSTRUCTIVE PULMONARY DISEASE W (ACUTE) EXACERB Attending: KONSTANTIN NDIAYE Current LOS: 4 Anticipated DC Date: Planned Disposition: Primary Insurance: MEDICARE A & B Discharge Planning Comments: CM met with patient to complete initial dc planning assessment. CM educated patient on the CM role and verbal consent given by patient to complete assessment. CM verified patient's address, phone number, and emergency contact phone numbers. Patient lives at home alone and was independent with her ADL's prior to the last admission in June. During that admission she broke her hip and has been at the [facility]. Patient states she refuses IP, or SNF. Declination signed. At discharge patient plans to go home and feels this is a safe discharge. Pt has home 02 with [employer], shower chair, walker, w/c, cane, bed side commode, and nebulizers. CM discussed availability of home health, rehab services, and medical equipment. MYAH signed to resume [facility] and [facility]. Patient denies other known discharge needs at this time. Transportation provider at discharge will be [facility] [phone] a family friend. CM will continue to follow and will assist as needed with dc plans/needs. Plating Tank Operator: Lis Edds DCPIA - Discharge Planning Initial Assessment Updated by [email or web address]: Lis Fisher on 10/30/19 2:53 pm * Is the patient Alert and Oriented? Yes * How many steps to enter\exit or inside your home? 0/0 * PCP Elvie Steele * [facility] * [facility]readmission Environment [facility] * Facility Name [facility] * ADLs Partial Dependent * Partial ADLs (Assistance needed) Ambulation Medication Management * Equipment Cane Nebulizer Oxygen Rolling Walker Shower Chair Walker Wheelchair Wound Supplies Wound Vac * List name and contact numbers for known caregivers / representatives who currently or will assist patient after discharge: Nancy Smith * Verbal permission to speak to the caregivers and representatives has been obtained from the patient. Yes * Community resources currently utilized Home Health * Please name any agencies selected above. care iv * Additional services required to return to the preadmission environment? Yes * Can the patient safely return to the preadmission environment? No * Has this patient been hospitalized within the prior 30 days at any hospital? No Coverage Notice Reviewer: [id number] - Lis Fisher Notice Issued Date-Time: 10/30/2019 14:40 Notice Type: Patient Choice Letter Notice Delivered To: Patient Relationship to Patient: Instructional Technology Coach Name: Delivery Method: HAND - Hand Delivered Gin Days: Prior Verbal Notification: Recipient Understood Notice: Yes Recipient Signature: Yes Med Rec Note Co-signed by Attending: Coverage Notice Comment: choice to resume [facility] and [facility], declination signed for IP rehab, [place] Last DP export: 10/30/19 2:02 p Patient Name: RON ALBERTO Page 94389 at 1536 All edits/amendments must be made on the electronic document DICTATION DATE: 10/30/19 1536 GARMENT STEAMER: VELMA 10/30/19 1536 RPT#: [id number] DC DATE: STATUS: ADM IN [facility] [address] [place] [address] END OF REPORT
[2019-10-30 17:54] VITALS: BP 123/72
--- NOTE | 2019-10-30 19:43 | NUR ---
RPEORT RECEIVED AND ROUNDING COMPLETE. PATIENT SITTING UP ON THE SIDE OF HER BED. NO DISTRESS NOTED. WEARING ANSAL CANNULA WITH O2 AT 2L. WOUND VAC TO THE LEFT LOWER LEG. PATIENT HAS A RIGHT FOREARM PIV WITH FLUIDS RUNNING. DION HAS NO NEEDS OR COMPLAINTS AT THIS TIME. CALL LIGHT WITHIN REACH AND BED IN LOWEST LOCKED POSITION.
[2019-10-30 20:00] VITALS: BP 128/73
[2019-10-31] VITALS: BP 123/66
--- NOTE | 2019-10-31 07:10 | NUR ---
REPORT RECEIVED FROM SLEEVE SETTER AND PATIENT CARE ASSUMED. PATIENT LAYING IN BED ON BACK AWAKE, ALERT AND ORIENTED X 4. PATIENT IS STABLE AND VSS. PATIENT DENIES ANY NEEDS OR PAIN. WILL CONTINUE WITH PLAN OF CARE. SR UP X 2 BED IN LOW POSITION AND CALL LIGHT IN REACH.
[2019-10-31 09:50] VITALS: BP 125/62
--- NOTE | 2019-10-31 11:47 | NUR ---
WOUND VAC DRESSING CHANGE DATE: 10/31/2019 WOUND LOCATION: left lower leg WOUND MEASUREMENTS: 3.5cm x 2.5cm x 1cm WOUND DESCRIPTION: pink wound bed/edges rolled MUSCLE, TENDON, OR BONE EXPOSED? no DRAINAGE AMOUNT/DESCRIPTION: none ODOR? no TYPE OF SPONGE USED AND AMOUNT: 1 black SETTINGS:-125mmhg low continuous TEACHING: dressing change schedule Pt tolerated well.
--- NOTE | 2019-10-31 13:20 | NUR ---
PATIENT SITTING UP IN BED WATCHING TV. PATIENT IS STABLE AND VSS. PATIENT DENIES ANY NEEDS OR PAIN. WILL CONTINUE TO MONITOR. SR UPX 2 BED IN LOW POSITION AND CALL LIGHT IN REACH.
[2019-10-31 13:41] VITALS: BP 122/61
[2019-10-31 21:10] VITALS: BP 119/59
--- NOTE | 2019-10-31 23:57 | NUR ---
INITIAL ROUNDS COMPLETED AT 1915 HRS. NO DISTRESS NOTED. CAF PER CM HR 84. PM MEDS GIVEN. ASSESSMENT COMPLETED AT 2305 HRS. VSS. ALERT AND ORIENTED TO PERSON,PLACE AND TIME. RAMIREZ. IV TOR WRIST SL. O2 2LNC. LUNGS DIMINSHED IN BASES BILAT.WOUND VAC TO LOWER L LEG CLEAN,DRY AND INTACT. 2+ EDEMA TO L LEG. 1+EDEMA TO R LEG. BROWN ELASTIC HOSE FROM WOUND ON BILAT LOWER EXTREMITIS. HOSE SOILED. PT REFUSES TO REMOVE IT STATING THIS HOSPITAL DOESN'T HAVE THE RIGHT KIND. PT CURRENTLY WATCHING TV. NO DISTRESS NOTED. CALL LIGHT WITHIN REACH.
[2019-11-01 00:13] VITALS: BP 146/83
--- NOTE | 2019-11-01 01:37 | NUR ---
PT RESTING WITH EYES CLOSED. RESP EVEN AND REGULAR. SR UP X1,CALL LIGHT WITHIN REACH.
--- NOTE | 2019-11-01 04:44 | NUR ---
PT RESTING WITH EYES CLOSED. RESP EVEN AND REGULAR. SR UP X1, CALL LIGHT WITHIN REACH AND BED ALARM ON.
[2019-11-01 04:54] VITALS: BP 154/66
--- NOTE | 2019-11-01 05:38 | NUR ---
VSS THROUGHOUT NIGHT. PT RESTED WELL DURING SHIFT. NEEDS MET; [facility].
--- NOTE | 2019-11-01 08:52 | NUR ---
AM MEDS GIVEN AT THIS TIME. PT REFUSED TO HAVE SATHISH HOSE REMOVED, STATED THAT SHE WILL SEE IF CAN HAVE HER FRIEND BRING ANOTHER SET OVER BECAUSE WE DO NOT HAVE THOSE SATHISH HOSE HERE. RT FA IV SL. DRESSING NOTED TO LT LOWER LEG WITH WOUND VAC IN PLACE. PT DENIES ANY NEEDS AT THIS TIME. CALL LIGHT IN REACH, BEDSIDE RAILS X2, BED ALARM ON, NAD NOTED, WILL CONTINUE TO MONITOR.
[2019-11-01 08:56] VITALS: BP 155/64
[2019-11-01 10:32] LABS: BASOPHILS 0 % (0-2); EOSINOPHILS 0 % (0-7); HEMATOCRIT 38.8 % (36.0-48.0); IMMATURE GRANULOCYTES 0.3 % (0-5); LYMPHOCYTES 7.2 % (15-50); MCH 29.1 pg (26.0-34.0); MCHC 30.9 g/dL (31.0-37.0); MCV 94.2 fL (80.0-100.0); MEAN PLATELET VOLUME 11.3 fL (7.4-10.4); MONOCYTES 0.2 % (2-11); NEUTROPHILS 92.3 % (40-80); PLATELET COUNT 227 10x3/uL (130-400); RBC 4.12 10x6/uL (4.00-5.40); RDW 14.8 % (11.5-14.5); WBC 6.4 10x3/uL (4.8-10.8)
[2019-11-01 10:48] LABS: ALBUMIN 2.5 g/dL (3.4-5.0); ANION GAP 3.7 mmol/L (8-16); BILIRUBIN - TOTAL 0.91 mg/dL (0.2-1.3); CALCIUM 8.1 mg/dL (8.5-10.1); CARBON DIOXIDE 37.8 mmol/L (21.0-32.0); POTASSIUM - SERUM 4.5 mmol/L (3.5-5.1); PROTEIN - SERUM 6.2 g/dL (6.4-8.2)
[2019-11-01 13:12] VITALS: BP 124/63
[2019-11-01 18:31] VITALS: BP 110/76
--- NOTE | 2019-11-01 19:41 | NUR ---
INITIAL ROUNDS COMPLETED. PT DENIED ANY DISCOMFORT. CALL LIGHT WITHIN REACH.
[2019-11-01 20:00] VITALS: BP 128/77
--- NOTE | 2019-11-01 23:19 | NUR ---
INITIAL ROUNDS COMPLETED AT 1915 HRS. PT DENIED ANY DISCOMFORT. ASSESSMENT COMPLETED AT 2004 HRS. VSS. CAF PER CMHR 79. ALERT AND ORIENTED TO PERSON, PLACE AND TIME. RAMIREZ. IV TO RFA SL. O2 2LNC. LUNGS DIMINISHED IN BASES BILAT. 2+ EDEMA TO L LEG, 1+ EDEMA TO R LEG. WOUOND VAC NOTED TO L LEG. PM MEDS GIVEN PER ORDERS. PT CURRETNLY RESTING WITH EYES CLOSED. RESP EVEN AND REGULAR. SR UP X2, CALL LIGHT WITHIN REACH.
[2019-11-02] VITALS: BP 126/72
--- NOTE | 2019-11-02 00:53 | NUR ---
PT RESTING WITH EYES CLOSED. RESP EVEN AND REGULAR. SR UP X1, CALL LIGHT WITHIN REACH.
--- NOTE | 2019-11-02 05:01 | NUR ---
PT RESTING WITH EYES CLOSED. RESP EVEN AND REGULAR. CALL LIGHT WITHIN REACH.
--- NOTE | 2019-11-02 06:37 | NUR ---
VSS THROUGHOUT NIGHT. CAF PER CM. RESTED WELL DURING SHIFT. NEEDS MET; WILL CONTINUE TO MONITOR.
--- NOTE | 2019-11-02 08:47 | NUR ---
AM MEDS GIVEN AT THIS TIME. PT UP TO SIDE OF BED, EATING BREAKFAST. PT DENIES ANY NEEDS AT THIS TIME. CALL LIGHT IN REACH, NAD NOTED,W ILL CONTINUE TO MONITOR.
[2019-11-02 09:44] VITALS: BP 118/79
[2019-11-02 13:38] VITALS: BP 167/68
--- NOTE | 2019-11-02 15:17 | NUR ---
SHOWER AND COMPLETE LINEN CHANGE DONE AT THIS TIME. ENCOURAGED PT TO KEEP LEGS ELEVATED.
[2019-11-02 17:45] VITALS: BP 125/77
--- NOTE | 2019-11-02 19:55 | NUR ---
INITIAL ROUNDS COMPLETED AT 1910 HRS. PT UP TO BR. ASSESSMENT COMPLETED AT 1940 HRS. VSS. CAF PER CM HR 89. ALERT AND ORIENTED TO PERSON, PLACE AND TIME. RAMIREZ. O2 2LNC. LUNGS DIMINISHED IN BASES BILAT. ACTIVE BS NOTED. WOUND VAC NOTED TO L LOWER LEG WITHSCANT YELLOW DRAINAGE NOTED. 2+ L LEG EDEMA. 1+ R LEG EDEMA. SATHISH BETHE ON. CALL LIGHT WITHIN REACH.
[2019-11-02 20:00] VITALS: BP 129/69
--- NOTE | 2019-11-02 21:30 | NUR ---
PM MEDS GIVEN. PT SITTING ON SIDE OF BED DOING CROSSWORD PUZZLES. DENIES ANY NEEDS.
--- NOTE | 2019-11-02 23:59 | NUR ---
PT RESTING WITH EYES CLOSED. RESP EVEN AND REGULAR. SR UP X1, CALL LIGHT WITHIN REACH.
[2019-11-03] VITALS: BP 138/73
--- NOTE | 2019-11-03 01:40 | NUR ---
PT RESTING WITH EYES CLOSED. RESP EVEN AND REGULAR. SR UP X1, CALL LIGHT WITHIN REACH.
[2019-11-03 04:00] VITALS: BP 127/57
--- NOTE | 2019-11-03 04:25 | NUR ---
PT AWAKE; DENIES ANY DISCOMFORT. SR UP X1, CALL LIGHT WITHIN REACH.
[2019-11-03 06:14] LABS: ANION GAP 3.2 mmol/L (8-16); CALCIUM 7.7 mg/dL (8.5-10.1); CARBON DIOXIDE 36.9 mmol/L (21.0-32.0); CREATININE - SERUM 0.8 mg/dL (0.6-1.3); POTASSIUM - SERUM 4.1 mmol/L (3.5-5.1)
--- NOTE | 2019-11-03 06:24 | NUR ---
VSS THROUGHOUT NIGHT. CAF PER CM. PT STATED ULTRAM CONTROLLED HER LEG PAIN. NEEDS MET; WILL CONTINUE TO MONITOR.
--- NOTE | 2019-11-03 08:18 | NUR ---
AM MEDS GIVEN AT THIS TIME. ALSO GAVE ULTRAM FOR PAIN LEVEL OF 8/10. HELPED PT TO BATHROOM AND BACK TO BED. PT DENIES ANY OTHER NEEDS AT THIS TIME. CALL LIGHT IN REACH,NAD NOTED,W ILL CONTINUE TO MONITOR.
[2019-11-03 09:22] VITALS: BP 133/67
--- NOTE | 2019-11-03 12:19 | NUR ---
WOUND VAC DRESSING CHANGE DATE: 11/03/2019 WOUND LOCATION: left lower leg WOUND MEASUREMENTS: 3.5cm x 2cm WOUND DESCRIPTION: granulation noted MUSCLE, TENDON, OR BONE EXPOSED? no DRAINAGE AMOUNT/DESCRIPTION: none ODOR? no TYPE OF SPONGE USED AND AMOUNT: 1 black SETTINGS:-125mmhg low continuous TEACHING: healing process
[2019-11-03 13:56] VITALS: BP 103/56
--- NOTE | 2019-11-03 17:31 | NUR ---
CORE, TESSALON AND LASIX GIVEN AT 1624, COMPUTER IN ROOM LOGGED ME OFF AND DID NOT SUBMIT MEDICATIONS GIVEN, TRIED LOGGING IN AGAIN TO SUBMIT MEDS, KEEPS SAYING THAT IT IS BEING EDITED IN DIFFERENT COMPUTER BY THIS NURSE. CALLED IT AND THEY WERE SUPPOSE TO WORK ON IT TO FIX IT.
[2019-11-03 18:54] VITALS: BP 126/53
--- NOTE | 2019-11-03 20:41 | NUR ---
HS MEDS GIVEN WITH FRESH ICE WATER. PT DENIES PAIN OR NEEDS.
[2019-11-03 21:45] VITALS: BP 110/71
[2019-11-04 00:06] VITALS: BP 139/75
[2019-11-04 04:11] VITALS: BP 135/72
[2019-11-04 06:52] LABS: CARBON DIOXIDE 39.9 mmol/L (21.0-32.0); CREATININE - SERUM 0.8 mg/dL (0.6-1.3); POTASSIUM - SERUM 3.9 mmol/L (3.5-5.1)
[2019-11-04 08:00] VITALS: BP 133/59
[2019-11-04 12:00] VITALS: BP 123/55
--- NOTE | 2019-11-04 13:35 | NUR ---
Nutrition Follow-up: Eating well overall. Diet: Cardiac PO intake: 80% avg x 10 meals Wt: 236.9# (11/03); 239.2# (10/31) Labs noted: Ca 8.0 Meds noted: Lasix, KDur, Protonix, Prednisone, Linzess, Miralax, electrolyte protocol -Encourage PO intake and honor food preferences within diet restrictions. -Monitor wt; noted daily wts ordered. -RD following.
[2019-11-04 16:00] VITALS: BP 133/65
--- NOTE | 2019-11-04 16:01 | NUR ---
OT NOTE: PT COMPLETED SIT TO STAND WITH CGA. PT COMPLETED ADL MOB WITH RW AND REQUIRED MOD A WITH EQUIPMENT MANAGEMENT. PT COMPLETED EXHIBITED F+ DYNAMIC BALANCE. PT ABLE TO BEND TO RETRIEVE OBJECTS FROM FLOOR WITH SBA/CGA. PT COMPLETED TOILETING TASKS WITH SBA. PT C/O PAIN R SHOULDER. PT STATED THIS PAIN IS RECENT AND PREVENTS HER FROM USING [facility]IN[facility] UE FOR TOILETING HYGIENE. NURSING IS AWARE. PT COMPLETED HAND HYGIENE WITH SBA. [phone] THANK YOU,TYE VILLALPANDO
[2019-11-04 20:43] VITALS: BP 112/76
[2019-11-05 00:14] VITALS: BP 143/74
[2019-11-05 09:40] VITALS: BP 119/70
[2019-11-05 13:31] VITALS: BP 119/70
--- NOTE | 2019-11-05 14:00 | MORECARE ---
CASE MANAGEMENT DISCHARGE SUMMARY PATIENT: RON ALBERTO UNIT: [id number] ADM DATE: 10/26/19 AGE: 74 : 43 SEX: F ROOM/BED: D.0621 AUTHOR: THERESE KNIGHT PHYSICIAN: REFERRING PHYSICIAN: KONSTANTIN NDIAYE MD DATE OF SERVICE: 11/05/19 Discharge Plan Patient Name: RON ALBERTO Facility: [facility]:[place] : 1945 Planned Disposition: Anticipated Discharge Date: Discharge Date: Expected LOS: Initial Reviewer: [email or web address] Initial Review Date: 10/26/2019 Generated: 11/05/19 2:59 pm DCP- Discharge Planning Updated by [email or web address]: Lis Fisher on 10/30/19 2:[address] Patient Name: RON ALBERTO Admission Status: ER Accout number: [id number] Admission Date: 10-26-2019 : 1945 Admission Diagnosis:CHRONIC OBSTRUCTIVE PULMONARY DISEASE W (ACUTE) EXACERB Attending: KONSTANTIN NDIAYE Current LOS: 4 Anticipated DC Date: Planned Disposition: Primary Insurance: MEDICARE A & B Discharge Planning Comments: CM met with patient to complete initial dc planning assessment. CM educated patient on the CM role and verbal consent given by patient to complete assessment. CM verified patient's address, phone number, and emergency contact phone numbers. Patient lives at home alone and was independent with her ADL's prior to the last admission in June. During that admission she broke her hip and has been at the [facility]. Patient states she refuses IP, or SNF. Declination signed. At discharge patient plans to go home and feels this is a safe discharge. Pt has home 02 with [employer], shower chair, walker, w/c, cane, bed side commode, and nebulizers. CM discussed availability of home health, rehab services, and medical equipment. MYAH signed to resume [facility] and [facility]. Patient denies other known discharge needs at this time. Transportation provider at discharge will be [facility] [phone] a family friend. CM will continue to follow and will assist as needed with dc plans/needs. Varnishing Machine Operator: Lis Fisher DCPIA - Discharge Planning Initial Assessment Updated by [email or web address]: Lis Fisher on 10/30/19 2:53 pm * Is the patient Alert and Oriented? Yes * How many steps to enter\exit or inside your home? 0/0 * PCP Elvie Steele * [facility]acy [facility] * Preadmission Environment [facility] * Facility Name [facility] * ADLs Partial Dependent * Partial ADLs (Assistance needed) Ambulation Medication Management * Equipment Cane Nebulizer Oxygen Rolling Walker Shower Chair Walker Wheelchair Wound Supplies Wound Vac * List name and contact numbers for known caregivers / representatives who currently or will assist patient after discharge: Nancy Smith * Verbal permission to speak to the caregivers and representatives has been obtained from the patient. Yes * Community resources currently utilized Home Health * Please name any agencies selected above. care iv * Additional services required to return to the preadmission environment? Yes * Can the patient safely return to the preadmission environment? No * Has this patient been hospitalized within the prior 30 days at any hospital? No External Providers External Provider: [facility] Next Contact Date: Service Request Date: Service Type: Resolution: Reviewer: Comments: Coverage Notice Reviewer: [email or web address] - Lis Fisher Notice Issued Date-Time: 10/30/2019 14:40 Notice Type: Patient Choice Letter Notice Delivered To: Patient Relationship to Patient: Pulp Grinder Name: Delivery Method: HAND - Hand Delivered Gin Days: Prior Verbal Notification: Recipient Understood Notice: Yes Recipient Signature: Yes Med Rec Note Co-signed by Attending: Coverage Notice Comment: choice to resume [facility] and [facility], [facility] Last DP export: 10/30/19 2:36 p Patient Name: RON ALBERTO Page [id number] at 1400 All edits/amendments must be made on the electronic document DICTATION DATE: 11/05/19 1400 STUDENT ACTIVITIES DIRECTOR: VELMA 11/05/19 1400 RPT#: [id number] DC DATE: STATUS: ADM IN [facility] [address] [place] [address] END OF REPORT
--- NOTE | 2019-11-05 14:24 | NUR ---
WOUND VAC DRESSING CHANGE DATE: 11/05/2019 WOUND LOCATION: LEFT LOWER LEG WOUND MEASUREMENTS: 3.5CM X 2CM WOUND DESCRIPTION: HEALING WOUND BED. GRANULATION NOTED MUSCLE, TENDON, OR BONE EXPOSED? NO DRAINAGE AMOUNT/DESCRIPTION: NO ODOR? NO TYPE OF SPONGE USED AND AMOUNT: BLACK X 1 SETTINGS: -125MMHG LOW CONTINUOUS TEACHING: DRESSING CHANGES PT TOLERATED WELL.
--- NOTE | 2019-11-05 17:57 | MORECARE ---
CASE MANAGEMENT DISCHARGE SUMMARY PATIENT: RON ALBERTO UNIT: [id number] ADM DATE: 10/26/19 AGE: 74 : 43 SEX: F ROOM/BED: D.7662 AUTHOR: THERESE KNIGHT PHYSICIAN: REFERRING PHYSICIAN: KONSTANTIN MAXWELL MD DATE OF SERVICE: 11/05/19 Discharge Plan Patient Name: RON ALBERTO Facility: [facility]:[place] : 1945 Planned Disposition: Anticipated Discharge Date: Discharge Date: Expected LOS: Initial Reviewer: [email or web address] Initial Review Date: 10/26/2019 Generated: 11/05/19 6:56 pm Comments DCP- Discharge Planning Updated by [email or web address]: Lis Fisher on 11/05/19 4:[address] Patient Name: RON ALBERTO Encounter No: [id number] : 1945 Primary Insurance: MEDICARE A & B Anticipated DC Date: Planned Disposition: External Planned Provider: : DCP follow-up note: CM met with Dr. Maxwell and patient about rehab. Pt states she knows she needs rehab, and is willing to go to the [facility]. Cm called the [facility] at [phone] and spoke with Opal. They have one opening available and they are considering accepting her back tomorrow after the DON looks over the clinicals. DC IMM delivered, explained, signed by the patient, and placed in chart. Signed form also left with the patient. Patient and family in agreement with discharge plan. No changes to plan. Case management will follow and assist as needed. Received call from [facility] stating they would not be able to meet the needs of the patient, and are unable to accept her for IP rehab. CM will meet with patient do discuss dc plan. Lis Fisher DCP- Discharge Planning Updated by [id number]: Lis Fisher on 10/30/19 2:[address] Patient Name: RON ALBERTO Admission Status: ER Accout number: [id number] Admission Date: 10-26-2019 : 1945 Admission Diagnosis:CHRONIC OBSTRUCTIVE PULMONARY DISEASE W (ACUTE) EXACERB Attending: KONSTANTIN MAXWELL Current LOS: 4 Anticipated DC Date: Planned Disposition: Primary Insurance: MEDICARE A & B Discharge Planning Comments: CM met with patient to complete initial dc planning assessment. CM educated patient on the CM role and verbal consent given by patient to complete assessment. CM verified patient's address, phone number, and emergency contact phone numbers. Patient lives at home alone and was independent with her ADL's prior to the last admission in June. During that admission she broke her hip and has been at the [facility]. Patient states she refuses IP, or SNF. Declination signed. At discharge patient plans to go home and feels this is a safe discharge. Pt has home 02 with [employer], shower chair, walker, w/c, cane, bed side commode, and nebulizers. CM discussed availability of home health, rehab services, and medical equipment. MYAH signed to resume [facility] and [facility]. Patient denies other known discharge needs at this time. Transportation provider at discharge will be [facility] [phone] a family friend. CM will continue to follow and will assist as needed with dc plans/needs. Applications Support Engineer: Lis Fisher DCPIA - Discharge Planning Initial Assessment Updated by [email or web address]: Lis Fisher on 10/30/19 2:53 pm * Is the patient Alert and Oriented? Yes * How many steps to enter\exit or inside your home? 0/0 * PCP Elvie Steele * [facility]acy [facility] * Preadmission Environment [facility] * Facility Name [facility] * ADLs Partial Dependent * Partial ADLs (Assistance needed) Ambulation Medication Management * Equipment Cane Nebulizer Oxygen Rolling Walker Shower Chair Walker Wheelchair Wound Supplies Wound Vac * List name and contact numbers for known caregivers / representatives who currently or will assist patient after discharge: Nancy Smith * Verbal permission to speak to the caregivers and representatives has been obtained from the patient. Yes * Community resources currently utilized Home Health * Please name any agencies selected above. care iv * Additional services required to return to the preadmission environment? Yes * Can the patient safely return to the preadmission environment? No * Has this patient been hospitalized within the prior 30 days at any hospital? No Coverage Notice Reviewer: [email or web address] - Lis Fisher Notice Issued Date-Time: 10/30/2019 14:40 Notice Type: Patient Choice Letter Notice Delivered To: Patient Relationship to Patient: Black Topper Name: Delivery Method: HAND - Hand Delivered Gin Days: Prior Verbal Notification: Recipient Understood Notice: Yes Recipient Signature: Yes Med Rec Note Co-signed by Attending: Coverage Notice Comment: choice to resume [facility] and [facility], declination signed for IP rehab, [facility]es DP export: 11/05/19 1:00 pm Patient Name: RON ALBERTO Page 01431 at 1757 All edits/amendments must be made on the electronic document DICTATION DATE: 11/05/191755 TELESALES PROFESSIONAL: VELMA 11/05/191755 RPT#: [id number] DC DATE: STATUS: ADM IN [facility] [address] [place] [address] END OF REPORT
[2019-11-05 18:56] VITALS: BP 121/55
[2019-11-05 20:00] VITALS: BP 117/63
[2019-11-06] VITALS: BP 139/63
--- NOTE | 2019-11-06 03:54 | NUR ---
I have reviewed this patient and I concur with the Shift Assessment completed by the Licensed Practical Nurse today this shift.
[2019-11-06 04:00] VITALS: BP 128/53
--- NOTE | 2019-11-06 07:38 | MORECARE ---
CASE MANAGEMENT DISCHARGE SUMMARY PATIENT: RON ALBERTO UNIT: [id number] ADM DATE: 10/26/19 AGE: 74 : 43 SEX: F ROOM/BED: D.1291 AUTHOR: THERESE KNIGHT PHYSICIAN: REFERRING PHYSICIAN: KONSTANTIN MAXWELL MD DATE OF SERVICE: 11/06/19 Discharge Plan Patient Name: RON ALBERTO Facility: [facility]:[place] : 1945 Planned Disposition: Anticipated Discharge Date: Discharge Date: Expected LOS: Initial Reviewer: [id number] Initial Review Date: 10/26/2019 Generated: 11/06/19 8:37 am Comments DCP- Discharge Planning Updated by [email or web address]: Lis Fisher on 11/05/19 4:[address] Patient Name: RON ALBERTO Encounter No: [id number] : 1945 Primary Insurance: MEDICARE A & B Anticipated DC Date: Planned Disposition: External Planned Provider: : DCP follow-up note: CM met with Dr. Maxwell and patient about rehab. Pt states she knows she needs rehab, and is willing to go to the [facility]. Cm called the [facility] at [phone] and spoke with Opal. They have one opening available and they are considering accepting her back tomorrow after the DON looks over the clinicals. DC IMM delivered, explained, signed by the patient, and placed in chart. Signed form also left with the patient. Patient and family in agreement with discharge plan. No changes to plan. Case management will follow and assist as needed. Received call from Opal stating they would not be able to meet the needs of the patient, and are unable to accept her for IP rehab. CM will meet with patient do discuss dc plan. Lis Fisher DCP- Discharge Planning Updated by [id number]: Lis Fisher on 10/30/19 2:[address] Patient Name: RON ALBERTO Admission Status: ER Accout number: [id number] Admission Date: 10-26-2019 : 1945 Admission Diagnosis:CHRONIC OBSTRUCTIVE PULMONARY DISEASE W (ACUTE) EXACERB Attending: KONSTANTIN MAXWELL Current LOS: 4 Anticipated DC Date: Planned Disposition: Primary Insurance: MEDICARE A & B Discharge Planning Comments: CM met with patient to complete initial dc planning assessment. CM educated patient on the CM role and verbal consent given by patient to complete assessment. CM verified patient's address, phone number, and emergency contact phone numbers. Patient lives at home alone and was independent with her ADL's prior to the last admission in June. During that admission she broke her hip and has been at the [facility]. Patient states she refuses IP, or SNF. Declination signed. At discharge patient plans to go home and feels this is a safe discharge. Pt has home 02 with [employer], shower chair, walker, w/c, cane, bed side commode, and nebulizers. CM discussed availability of home health, rehab services, and medical equipment. MYAH signed to resume [facility]. Patient denies other known discharge needs at this time. [phone] family [facility]. CM will continue to follow and will assist as needed with dc plans/needs. Mechanical Oxidizer: Lis Fisher DCPIA - Discharge Planning Initial Assessment Updated by [id number]: Lis Fisher on 10/30/19 2:53 pm * Is the patient Alert and Oriented? Yes * How many steps to enter\exit or inside your home? 0/0 * PCP Elvie Steele * Pharmacy [facility] * Preadmission Environment [facility] * Facility Name [facility] * ADLs Partial Dependent * Partial ADLs (Assistance needed) Ambulation Medication Management * Equipment Cane Nebulizer Oxygen Rolling Walker Shower Chair Walker Wheelchair Wound Supplies Wound Vac * List name and contact numbers for known caregivers / representatives who currently or will assist patient after discharge: Nancy Smith [phone] * Verbal permission to speak to the caregivers and representatives has been obtained from the patient. Yes * Community resources currently utilized Home Health * Please name any agencies selected above. care iv * Additional services required to return to the preadmission environment? Yes * Can the patient safely return to the preadmission environment? No * Has this patient been hospitalized within the prior 30 days at any hospital? No External Providers [facility] Next Contact Date: Service Request Date: Service Type: Resolution: Reviewer: Comments: Coverage Notice Reviewer: [id number] - Lis Kaydustin Notice Issued Date-Time: 10/30/2019 14:40 Notice Type: Patient Choice Letter Notice Delivered To: Patient Relationship to Patient: Plate Grinder Name: Delivery Method: HAND - Hand Delivered Gin Days: Prior Verbal Notification: Recipient Understood Notice: Yes Recipient Signature: Yes Med Rec Note Co-signed by Attending: Coverage Notice Comment: choice to resume [facility], declination signed for IP rehabChapin export: 11/05/19 4:57 pm Patient Name: RON ALBERTO Page 22746 at 0738 All edits/amendments must be made on the electronic document DICTATION DATE: 11/06/19736 SITE SUPERVISING TECHNICAL OPERATOR: VELMA 11/06/19736 RPT#: [id number] DC DATE: STATUS: ADM IN [facility] [address] [place] [address] END OF REPORT
--- NOTE | 2019-11-06 07:44 | MORECARE ---
CASE MANAGEMENT DISCHARGE SUMMARY PATIENT: RON ALBERTO UNIT: [id number] ADM DATE: 10/26/19 AGE: 74 : 43 SEX: F ROOM/BED: D.6663 AUTHOR: THERESE KNIGHT PHYSICIAN: REFERRING PHYSICIAN: KONSTANTIN MAXWELL MD DATE OF SERVICE: 11/06/19 Discharge Plan Patient Name: RON ALBERTO Facility: [facility]:[place] : 1945 Planned Disposition: Anticipated Discharge Date: Discharge Date: Expected LOS: Initial Reviewer: [email or web address] Initial Review Date: 10/26/2019 Generated: 11/06/19 8:44 am Comments DCP- Discharge Planning Updated by [id number]: Lis Fisher on 11/05/19 4:[address] Patient Name: RON ALBERTO Encounter No: [id number] : 1945 Primary Insurance: MEDICARE A & B Anticipated DC Date: Planned Disposition: External Planned Provider: : DCP follow-up note: CM met with Dr. Maxwell and patient about rehab. Pt states she knows she needs rehab, and is willing to go to the [facility]. Cm called the [facility] at [phone] and spoke with Opal. They have one opening available and they are considering accepting her back tomorrow after the DON looks over the clinicals. DC IMM delivered, explained, signed by the patient, and placed in chart. Signed form also left with the patient. Patient and family in agreement with discharge plan. No changes to plan. Case management will follow and assist as needed. Received call from Opal stating they would not be able to meet the needs of the patient, and are unable to accept her for IP rehab. CM will meet with patient do discuss dc plan. Lis Fisher DCP- Discharge Planning Updated by [id number]: Lis Fisher on 10/30/19 2:[address] Patient Name: RON ALBERTO Admission Status: ER Accout number: [id number] Admission Date: 10-26-2019 : 1945 Admission Diagnosis:CHRONIC OBSTRUCTIVE PULMONARY DISEASE W (ACUTE) EXACERB Attending: KONSTANTIN MAXWELL Current LOS: 4 Anticipated DC Date: Planned Disposition: Primary Insurance: MEDICARE A & B Discharge Planning Comments: CM met with patient to complete initial dc planning assessment. CM educated patient on the CM role and verbal consent given by patient to complete assessment. CM verified patient's address, phone number, and emergency contact phone numbers. Patient lives at home alone and was independent with her ADL's prior to the last admission in June. During that admission she broke her hip and has been at the [facility]. Patient states she refuses IP, or SNF. Declination signed. At discharge patient plans to go home and feels this is a safe discharge. Pt has home 02 with [employer], shower chair, walker, w/c, cane, bed side commode, and nebulizers. CM discussed availability of home health, rehab services, and medical equipment. MYAH signed to resume [facility]. Patient denies other known discharge needs at this time. [phone] [facility] family friend. CM will continue to follow and will assist as needed with dc plans/needs. Ese Teacher: Lis Fisher DCPIA - Discharge Planning Initial Assessment Updated by [email or web address]: Lis Fisher on 10/30/19 2:53 pm * Is the patient Alert and Oriented? Yes * How many steps to enter\exit or inside your home? 0/0 * PCP Elvie Steele * Pharmacy [facility] * [facility]mission Environment [facility] * Facility Name [facility] * ADLs Partial Dependent * Partial ADLs (Assistance needed) Ambulation Medication Management * Equipment Cane Nebulizer Oxygen Rolling Walker Shower Chair Walker Wheelchair Wound Supplies Wound Vac * List name and contact numbers for known caregivers / representatives who currently or will assist patient after discharge: Nancy Smith * Verbal permission to speak to the caregivers and representatives has been obtained from the patient. Yes * Community resources currently utilized Home Health * Please name any agencies selected above. care iv * Additional services required to return to the preadmission environment? Yes * Can the patient safely return to the preadmission environment? No * Has this patient been hospitalized within the prior 30 days at any hospital? No External Providers [facility] Next Contact Date: Service Request Date: Service Type: Resolution: Reviewer: Comments: Coverage Notice Reviewer: [id number] - Lis Kaydustin Notice Issued Date-Time: 10/30/2019 14:40 Notice Type: Patient Choice Letter Notice Delivered To: Patient Relationship to Patient: Drill Sergeant Name: Delivery Method: HAND - Hand Delivered Gin Days: Prior Verbal Notification: Recipient Understood Notice: Yes Recipient Signature: Yes Med Rec Note Co-signed by Attending: Coverage Notice Comment: choice to resume [facility] IV [facility], declination signed for IP florianabChapin DP export: 11/06/19 6:38 am Patient Name: RON ALBERTO Page 53063 at 0744 All edits/amendments must be made on the electronic document DICTATION DATE: 11/06/19743 VAMP STRAP IRONER: VELMA 11/06/1946 RPT#: [id number] DC DATE: STATUS: ADM IN [facility] [address] [place] [address] END OF REPORT
--- NOTE | 2019-11-06 09:32 | MORECARE ---
CASE MANAGEMENT DISCHARGE SUMMARY PATIENT: RON ALBERTO UNIT: [id number] ADM DATE: 10/26/19 AGE: 74 : 43 SEX: F ROOM/BED: D.7292 AUTHOR: THERESE KNIGHT PHYSICIAN: REFERRING PHYSICIAN: KONSTANTIN MAXWELL MD DATE OF SERVICE: 11/06/19 Discharge Plan Patient Name: RON ALBERTO Facility: [facility]:[place] : 1945 Planned Disposition: Anticipated Discharge Date: Discharge Date: Expected LOS: Initial Reviewer: [email or web address] Initial Review Date: 10/26/2019 Generated: 11/06/19 10:31 am Comments DCP- Discharge Planning Updated by [email or web address]: Lis Fisher on 11/05/19 4:[address] Patient Name: RON ALBERTO Encounter No: [id number] : 1945 Primary Insurance: MEDICARE A & B Anticipated DC Date: Planned Disposition: External Planned Provider: : DCP follow-up note: CM met with Dr. Maxwell and patient about rehab. Pt states she knows she needs rehab, and is willing to go to the [facility]. Cm called the [facility] at [phone] and spoke with Opal. They have one opening available and they are considering accepting her back tomorrow after the DON looks over the clinicals. DC IMM delivered, explained, signed by the patient, and placed in chart. Signed form also left with the patient. Patient and family in agreement with discharge plan. No changes to plan. Case management will follow and assist as needed. Received call from Opal stating they would not be able to meet the needs of the patient, and are unable to accept her for IP rehab. CM will meet with patient do discuss dc plan. Lis Fisher DCP- Discharge Planning Updated by [email or web address]: Lis Fisher on 10/30/19 2:[address] Patient Name: RON ALBERTO Admission Status: ER Accout number: [id number] Admission Date: 10-26-2019 : 1945 Admission Diagnosis:CHRONIC OBSTRUCTIVE PULMONARY DISEASE W (ACUTE) EXACERB Attending: KONSTANTIN MAXWELL Current LOS: 4 Anticipated DC Date: Planned Disposition: Primary Insurance: MEDICARE A & B Discharge Planning Comments: CM met with patient to complete initial dc planning assessment. CM educated patient on the CM role and verbal consent given by patient to complete assessment. CM verified patient's address, phone number, and emergency contact phone numbers. Patient lives at home alone and was independent with her ADL's prior to the last admission in June. During that admission she broke her hip and has been at the [facility]. Patient states she refuses IP, or SNF. Declination signed. At discharge patient plans to go home and feels this is a safe discharge. Pt has home 02 with [employer], shower chair, walker, w/c, cane, bed side commode, and nebulizers. CM discussed availability of home health, rehab services, and medical equipment. MYAH signed to resume [facility]. Patient denies other known discharge needs at this time. [phone] [facility] family friend. CM will continue to follow and will assist as needed with dc plans/needs. Senior Technical Editor: Lis Fisher DCPIA - Discharge Planning Initial Assessment Updated by [id number]: Lis Fisher on 10/30/19 2:53 pm * Is the patient Alert and Oriented? Yes * How many steps to enter\exit or inside your home? 0/0 * PCP Elvie Steele * Pharmacy [facility] * Preadmission Environment [facility] * Facility Name [facility] * ADLs Partial Dependent * Partial ADLs (Assistance needed) Ambulation Medication Management * Equipment Cane Nebulizer Oxygen Rolling Walker Shower Chair Walker Wheelchair Wound Supplies Wound Vac * List name and contact numbers for known caregivers / representatives who currently or will assist patient after discharge: Nancy Smith * Verbal permission to speak to the caregivers and representatives has been obtained from the patient. Yes * Community resources currently utilized Home Health * Please name any agencies selected above. care iv * Additional services required to return to the preadmission environment? Yes * Can the patient safely return to the preadmission environment? No * Has this patient been hospitalized within the prior 30 days at any hospital? No External Providers [facility] Next Contact Date: Service Request Date: Service Type: Resolution: Reviewer: Comments: External Provider: [facility] Next Contact Date: Service Request Date: Service Type: Resolution: Reviewer: Comments: Coverage Notice Reviewer: [id number] Kaleb PintoLis Edds Notice Issued Date-Time: 10/30/2019 14:40 Notice Type: Patient Choice Letter Notice Delivered To: Patient Relationship to Patient: Environmental Health Safety Engineer Name: Delivery Method: HAND - Hand Delivered Gin Days: Prior Verbal Notification: Recipient Understood Notice: Yes Recipient Signature: Yes Med Rec Note Co-signed by Attending: Coverage Notice Comment: choice to resume [facility], declination signed for IP rehab, [facility] José Manuel DP export: 11/06/19 6:44 am Patient Name: RON ALBERTO Page 04637 at 0932 All edits/amendments must be made on the electronic document DICTATION DATE: 11/06/19931 BARIATRIC COORDINATOR: VELMA 11/06/19 0932 RPT#: [id number] DC DATE: STATUS: ADM IN [facility] [address] [place] [address] END OF REPORT
[2019-11-06] MEDS ORDERED: LASIX40 MG PO (12:12)
[2019-11-06] MEDS ORDERED: IPRAT-ALBUT 0.5-3 ML UPD (12:12)
[2019-11-06] MEDS ORDERED: K-DUR20 MEQ PO (12:12)
[2019-11-06 12:24] VITALS: BP 124/65
--- NOTE | 2019-11-06 13:20 | MORECARE ---
CASE MANAGEMENT DISCHARGE SUMMARY PATIENT: RON ALBERTO UNIT: [id number] ADM DATE: 10/26/19 AGE: 74 : 43 SEX: F ROOM/BED: D.7623 AUTHOR: THERESE KNIGHT PHYSICIAN: REFERRING PHYSICIAN: KOSNTANTIN MAXWELL MD DATE OF SERVICE: 11/06/19 Discharge Plan Patient Name: RON ALBERTO Facility: [facility]:[place] : 1945 Planned Disposition: Anticipated Discharge Date: Discharge Date: Expected LOS: Initial Reviewer: [email or web address] Initial Review Date: 10/26/2019 Generated: 11/06/19 2:19 pm Comments DCP- Discharge Planning Updated by [email or web address]: Lis Fisher on 11/06/19 12:[address] Patient Name: RON ALBERTO Encounter No: [id number] : 1945 Primary Insurance: MEDICARE A & B Anticipated DC Date: Planned Disposition: External Planned Provider: : DCP follow-up note: CM called Nguyen at [facility] at [phone] about referral. CM faxed clinicals. Patient and family in agreement with discharge plan. Nguyen states they are able to admit her today if medically stable. CM called Dr. Maxwell to update. Dr. Maxwell agreed to dc today. CM spoke with patient who agrees with IP rehab at [facility]. MYAH signed. Cm faxed dc clinicals to [facility] and will wait on bed assignment. No changes to plan. Case management will follow and assist as needed. Lis Fisher DCP- Discharge Planning Updated by [email or web address]: Lis Fisher on 11/05/19 4:[address] Patient Name: RON ALBERTO Encounter No: [id number] : 1945 Primary Insurance: MEDICARE A & B Anticipated DC Date: Planned Disposition: External Planned Provider: : DCP follow-up note: CM met with Dr. Maxwell and patient about rehab. Pt states she knows she needs rehab, and is willing to go to the [facility]. Cm called the [facility] at [phone] and spoke with Opal. They have one opening available and they are considering accepting her back tomorrow after the DON looks over the clinicals. DC IMM delivered, explained, signed by the patient, and placed in chart. Signed form also left with the patient. Patient and family in agreement with discharge plan. No changes to plan. Case management will follow and assist as needed. Received call from Opal stating they would not be able to meet the needs of the patient, and are unable to accept her for IP rehab. CM will meet with patient do discuss dc plan. Lis Fisher DCP- Discharge Planning Updated by [id number]: Lis Fisher on 10/30/19 2:[address] Patient Name: RNO ALBERTO Admission Status: ER Accout number: [id number] Admission Date: 10-26-2019 : 1945 Admission Diagnosis:CHRONIC OBSTRUCTIVE PULMONARY DISEASE W (ACUTE) EXACERB Attending: KONSTANTIN MAXWELL Current LOS: 4 Anticipated DC Date: Planned Disposition: Primary Insurance: MEDICARE A & B Discharge Planning Comments: CM met with patient to complete initial dc planning assessment. CM educated patient on the CM role and verbal consent given by patient to complete assessment. CM verified patient's address, phone number, and emergency contact phone numbers. Patient lives at home alone and was independent with her ADL's prior to the last admission in June. During that admission she broke her hip and has been at the [facility]. Patient states she refuses IP, or SNF. Declination signed. At discharge patient plans to go home and feels this is a safe discharge. Pt has home 02 with [employer], shower chair, walker, w/c, cane, bed side commode, and nebulizers. CM discussed availability of home health, rehab services, and medical equipment. MYAH signed to resume [facility] HH. Patient denies other known discharge needs at this time. Transportation provider at discharge will be [facility] [phone] a family friend. CM will continue to follow and will assist as needed with dc plans/needs. Slasher Hand: Lis Fisher DCPIA - Discharge Planning Initial Assessment Updated by [email or web address]: Lis Fisher on 10/30/19 2:53 pm * Is the patient Alert and Oriented? Yes * How many steps to enter\exit or inside your home? 0/0 * PCP Elvie Steele * Pharmacy [facility] * Preadmission Environment [facility] * Facility Name [facility] * ADLs Partial Dependent * Partial ADLs (Assistance needed) Ambulation Medication Management * Equipment Cane Nebulizer Oxygen Rolling Walker Shower Chair Walker Wheelchair Wound Supplies Wound Vac * List name and contact numbers for known caregivers / representatives who currently or will assist patient after discharge: Nancy Smith * Verbal permission to speak to the caregivers and representatives has been obtained from the patient. Yes * Community resources currently utilized Home Health * Please name any agencies selected above. care iv * Additional services required to return to the preadmission environment? Yes * Can the patient safely return to the preadmission environment? No * Has this patient been hospitalized within the prior 30 days at any hospital? No Coverage Notice Reviewer: [email or web address] Fisher Notice Issued Date-Time: 10/30/2019 14:40 Notice Type: Patient Choice Letter Notice Delivered To: Patient Relationship to Patient: Service Specialist Name: Delivery Method: HAND - Hand Delivered Gin Days: Prior Verbal Notification: Recipient Understood Notice: Yes Recipient Signature: Yes Med Rec Note Co-signed by Attending: Coverage Notice Comment: choice to resume [facility] IV HH, declination signed for [facility] Reviewer: [id number] Kaleb Fisher Notice Issued Date-Time: 11/06/2019 12:00 Notice Type: Patient Choice Letter Notice Delivered To: Patient Relationship to Patient: Service Specialist Name: Delivery Method: HAND - Hand Delivered Gin Days: Prior Verbal Notification: Recipient Understood Notice: Yes Recipient Signature: Yes Med Rec Note Co-signed by Attending: Coverage Notice Comment: ip rehab at [facility] Reviewer: [id number] Kaleb Fisher Notice Issued Date-Time: 11/06/2019 12:00 Notice Type: IM Discharge Notice Notice Delivered To: Patient Relationship to Patient: Service Specialist Name: Delivery Method: HAND - Hand Delivered Gin Days: Prior Verbal Notification: Recipient Understood Notice: Yes Recipient Signature: Yes Med Rec Note Co-signed by Attending: Coverage Notice Comment: DC IMM delivered, explained, signed by the patient, and placed in chart. Signed form also left with the patient. Last DP export: 11/06/19 8:32 am Patient Name: RON ALBERTO Page 85538 at 1320 All edits/amendments must be made on the electronic document DICTATION DATE: 11/06/191318 BACTERIOLOGIST FOOD: VELMA 11/06/191318 RPT#: [id number] DC DATE: STATUS: ADM IN [facility] [address] [place] [address] END OF REPORT
--- NOTE | 2019-11-06 15:38 | MORECARE ---
CASE MANAGEMENT DISCHARGE SUMMARY PATIENT: RON ALBERTO UNIT: [id number] ADM DATE: 10/26/19 AGE: 74 : 43 SEX: F ROOM/BED: D.2655 AUTHOR: THERESE KNIGHT PHYSICIAN: REFERRING PHYSICIAN: KONSTANTIN MAXWELL MD DATE OF SERVICE: 11/06/19 Discharge Plan Patient Name: RON ALBERTO Facility: [facility]:[place] : 1945 Planned Disposition: Anticipated Discharge Date: Discharge Date: Expected LOS: Initial Reviewer: [email or web address] Initial Review Date: 10/26/2019 Generated: 11/06/19 4:38 pm Comments DCP- Discharge Planning Updated by [id number]: Lis Fisher on 11/06/19 2:[address] Patient Name: RON ALBERTO Encounter No: [id number] : 1945 Primary Insurance: MEDICARE A & B Anticipated DC Date: Planned Disposition: External Planned Provider: : DCP follow-up note: Nguyen at [facility] called and stated patient will go to bed 315. Report can be called to [phone]. [facility] will send transport van at 5 PM today. Patient and family in agreement with discharge plan. No changes to plan. Case management will follow and assist as needed. Lis Fisher DCP- Discharge Planning Updated by [email or web address]: Lis Fisher on 11/06/19 12:[address] Patient Name: RON ALBERTO Encounter No: [id number] : 1945 Primary Insurance: MEDICARE A & B Anticipated DC Date: Planned Disposition: External Planned Provider: : DCP follow-up note: CLARISSA called Nguyen at [facility] at [phone] about referral. CM faxed clinicals. Patient and family in agreement with discharge plan. Nguyen states they are able to admit her today if medically stable. CLARISSA called Dr. Maxwell to update. Dr. Maxwell agreed to dc today. CM spoke with patient who agrees with IP rehab at [facility]. MYAH signed. Cm faxed dc clinicals to [facility] and will wait on bed assignment. No changes to plan. Case management will follow and assist as needed. Lis Edds DCP- Discharge Planning Updated by [email or web address]: Lis Phillip on 11/05/19 4:[address] Patient Name: RON ALBERTO Encounter No: [id number] : 1945 Primary Insurance: MEDICARE A & B Anticipated DC Date: Planned Disposition: External Planned Provider: : DCP follow-up note: CM met with Dr. Maxwell and patient about rehab. Pt states she knows she needs rehab, and is willing to go to the [facility]. Cm called the [facility] at [phone] and spoke with Opal. They have one opening available and they are considering accepting her back tomorrow after the DON looks over the clinicals. DC IMM delivered, explained, signed by the patient, and placed in chart. Signed form also left with the patient. Patient and family in agreement with discharge plan. No changes to plan. Case management will follow and assist as needed. Received call from Opal stating they would not be able to meet the needs of the patient, and are unable to accept her for IP rehab. CM will meet with patient do discuss dc plan. Lisfelicia Fisher DCP- Discharge Planning Updated by [email or web address]: Lis Edds on 10/30/19 2:[address] Patient Name: RON ALBERTO Admission Status: ER Accout number: [id number] Admission Date: 10-26-2019 : 1945 Admission Diagnosis:CHRONIC OBSTRUCTIVE PULMONARY DISEASE W (ACUTE) EXACERB Attending: KONSTANTIN MAXWELL Current LOS: 4 Anticipated DC Date: Planned Disposition: Primary Insurance: MEDICARE A & B Discharge Planning Comments: CM met with patient to complete initial dc planning assessment. CM educated patient on the CM role and verbal consent given by patient to complete assessment. CM verified patient's address, phone number, and emergency contact phone numbers. Patient lives at home alone and was independent with her ADL's prior to the last admission in June. During that admission she broke her hip and has been at the [facility]. Patient states she refuses IP, or SNF. Declination signed. At discharge patient plans to go home and feels this is a safe discharge. Pt has home 02 with [employer], shower chair, walker, w/c, cane, bed side commode, and nebulizers. CM discussed availability of home health, rehab services, and medical equipment. MYAH signed to resume [facility] and [facility]. Patient denies other known discharge needs at this time. Transportation provider at discharge [facility] be [facility] [phone] a family friend. CM will continue to follow and will assist as needed with dc plans/needs. Overedge Sewer: Lis Fisher DCPIA - Discharge Planning Initial Assessment Updated by [email or web address]: Lis Fisher on 10/30/19 2:53 pm * Is the patient Alert and Oriented? Yes * How many steps to enter\exit or inside your home? 0/0 * PCP Elvie Steele * Pharmacy [facility] * Preadmission Environment Long-Term Facility * Facility Name [facility] * ADLs Partial Dependent * Partial ADLs (Assistance needed) Ambulation Medication Management * Equipment Cane Nebulizer Oxygen Rolling Walker Shower Chair Walker Wheelchair Wound Supplies Wound Vac * List name and contact numbers for known caregivers / representatives who currently or will assist patient after discharge: Nancy Smith * Verbal permission to speak to the caregivers and representatives has been obtained from the patient. Yes * Community resources currently utilized Home Health * Please name any agencies selected above. care iv * Additional services required to return to the preadmission environment? Yes * Can the patient safely return to the preadmission environment? No * Has this patient been hospitalized within the prior 30 days at any hospital? No Coverage Notice Reviewer: [id number] Kaleb Fisher Notice Issued Date-Time: 10/30/2019 14:40 Notice Type: Patient Choice Letter Notice Delivered To: Patient Relationship to Patient: Acetaldehyde Converter Operator Name: Delivery Method: HAND - Hand Delivered Gin Days: Prior Verbal Notification: Recipient Understood Notice: Yes Recipient Signature: Yes Med Rec Note Co-signed by Attending: Coverage Notice Comment: choice to resume [facility] and [facility], declination signed for [facility] Reviewer: [id number] Kaleb Fisher Notice Issued Date-Time: 11/06/2019 12:00 Notice Type: Patient Choice Letter Notice Delivered To: Patient Relationship to Patient: Acetaldehyde Converter Operator Name: Delivery Method: HAND - Hand Delivered Gin Days: Prior Verbal Notification: Recipient Understood Notice: Yes Recipient Signature: Yes Med Rec Note Co-signed by Attending: Coverage Notice Comment: ip rehab at [facility] Reviewer: [id number] Kaleb Fisher Notice Issued Date-Time: 11/06/2019 12:00 Notice Type: IM Discharge Notice Notice Delivered To: Patient Relationship to Patient: Acetaldehyde Converter Operator Name: Delivery Method: HAND - Hand Delivered Gin Days: Prior Verbal Notification: Recipient Understood Notice: Yes Recipient Signature: Yes Med Rec Note Co-signed by Attending: Coverage Notice Comment: DC IMM delivered, explained, signed by the patient, and placed in chart. Signed form also left with the patient. Last DP export: 11/06/19 12:20 pm Patient Name: RON ALBERTO Page 95093 at 1538 All edits/amendments must be made on the electronic document DICTATION DATE: 11/06/191537 NUCLEAR PLANT EQUIPMENT OPERATOR: VELMA 11/06/19 1538 RPT#: [id number] DC DATE: STATUS: ADM IN [facility] [address] [place] [address] END OF REPORT
--- NOTE | 2019-11-06 16:18 | NUR ---
Wound vac dressing removed from left leg. Pt is transferring to NC. Wound covered with adaptic and bordered gauze. Vac placed in soiled utility.
--- NOTE | 2019-11-06 17:58 | NUR ---
PT DISCHARGED TO REHAB VIA WHEELCHAIR. PIV REMOVED WITH CATHETER TIP FULLY INTACT. PT SIGNED PROPER DISCHARGE INSTRUCTIONS AND REMOVED ALL VALUABLES FROM THE ROOM. TELEMETRY REMOVED AND RETURNED.
--- NOTE | 2019-11-06 18:04 | MORECARE ---
CASE MANAGEMENT DISCHARGE SUMMARY PATIENT: RON ALBERTO UNIT: [id number] ADM DATE: 10/26/19 AGE: 74 : 43 SEX: F ROOM/BED: D.3401 AUTHOR: THERESE KNIGHT PHYSICIAN: REFERRING PHYSICIAN: KONSTANTIN MAXWELL MD DATE OF SERVICE: 11/06/19 Discharge Plan Patient Name: RON ALBERTO Facility: [facility]:[place] : 1945 Planned Disposition: Anticipated Discharge Date: Discharge Date: 11/06/2019 Expected LOS: Initial Reviewer: [email or web address] Initial Review Date: 10/26/2019 Generated: 11/06/19 7:03 pm DCP- Discharge Planning Updated by [email or web address]: Lis Fisher on 11/06/19 2:[address] Patient Name: RON ALBERTO Encounter No: [id number] : 1945 Primary Insurance: MEDICARE A & B Anticipated DC Date: Planned Disposition: External Planned Provider: : DCP follow-up note: Nguyen at [facility] called and stated patient will go to bed 315. Report can be called to [phone]. [facility] will send transport van at 5 PM today. Patient and family in agreement with discharge plan. No changes to plan. Case management will follow and assist as needed. Lis Fisher DCP- Discharge Planning Updated by [email or web address]: Lis Fisher on 11/06/19 12:[address] Patient Name: RON ALBERTO Encounter No: [id number] : 1945 Primary Insurance: MEDICARE A & B Anticipated DC Date: Planned Disposition: External Planned Provider: : DCP follow-up note: CLARISSA called Nguyen at [facility] at [phone] about referral. CM faxed clinicals. Patient and family in agreement with discharge plan. Nguyen states they are able to admit her today if medically stable. CLARISSA called Dr. Maxwell to update. Dr. Maxwell agreed to dc today. CM spoke with patient who agrees with IP rehab at [facility]. MYAH signed. Cm faxed dc clinicals to [facility] and will wait on bed assignment. No changes to plan. Case management will follow and assist as needed. Lis Edds DCP- Discharge Planning Updated by [email or web address]: Lis Phillip on 11/05/19 4:[address] Patient Name: RON ALBERTO Encounter No: [id number] : 1945 Primary Insurance: MEDICARE A & B Anticipated DC Date: Planned Disposition: External Planned Provider: : DCP follow-up note: CM met with Dr. Maxwell and patient about rehab. Pt states she knows she needs rehab, and is willing to go to the [facility]. Cm called the [facility] at [phone] and spoke with Opal. They have one opening available and they are considering accepting her back tomorrow after the DON looks over the clinicals. DC IMM delivered, explained, signed by the patient, and placed in chart. Signed form also left with the patient. Patient and family in agreement with discharge plan. No changes to plan. Case management will follow and assist as needed. Received call from [facility] stating they would not be able to meet the needs of the patient, and are unable to accept her for IP rehab. CM will meet with patient do discuss dc plan. Lis Edds DCP- Discharge Planning Updated by [email or web address]: Lis Edds on 10/30/19 2:[address] Patient Name: RON ALBERTO Admission Status: ER Accout number: [id number] Admission Date: 10-26-2019 : 1945 Admission Diagnosis:CHRONIC OBSTRUCTIVE PULMONARY DISEASE W (ACUTE) EXACERB Attending: KONSTANTIN MAXWELL Current LOS: 4 Anticipated DC Date: Planned Disposition: Primary Insurance: MEDICARE A & B Discharge Planning Comments: CM met with patient to complete initial dc planning assessment. CM educated patient on the CM role and verbal consent given by patient to complete assessment. CM verified patient's address, phone number, and emergency contact phone numbers. Patient lives at home alone and was independent with her ADL's prior to the last admission in June. During that admission she broke her hip and has been at the [facility]. Patient states she refuses IP, or SNF. Declination signed. At discharge patient plans to go home and feels this is a safe discharge. Pt has home 02 with [employer], shower chair, walker, w/c, cane, bed side commode, and nebulizers. CM discussed availability of home health, rehab services, and medical equipment. MYAH signed to resume [facility] and [facility]. Patient denies other known discharge needs at this time. Transportation provider at discharge will be [facility] [phone] a family friend. CM will continue to follow and will assist as needed with dc plans/needs. Geothermal System Installer: Lis Fisher DCPIA - Discharge Planning Initial Assessment Updated by [id number]: Lis Fisher on 10/30/19 2:53 pm * Is the patient Alert and Oriented? Yes * How many steps to enter\exit or inside your home? 0/0 * PCP Elvie Steele * Pharmacy [facility] * Preadmission Environment Snf Facility * Facility Name [facility] * ADLs Partial Dependent * Partial ADLs (Assistance needed) Ambulation Medication Management * Equipment Cane Nebulizer Oxygen Rolling Walker Shower Chair Walker Wheelchair Wound Supplies Wound Vac * List name and contact numbers for known caregivers / representatives who currently or will assist patient after discharge: Nancy Smith [phone] * Verbal permission to speak to the caregivers and representatives has been obtained from the patient. Yes * Community resources currently utilized Home Health * Please name any agencies selected above. care iv * Additional services required to return to the preadmission environment? Yes * Can the patient safely return to the preadmission environment? No * Has this patient been hospitalized within the prior 30 days at any hospital? No Coverage Notice Reviewer: [id number] Kaleb Fisher Notice Issued Date-Time: 10/30/2019 14:40 Notice Type: Patient Choice Letter Notice Delivered To: Patient Relationship to Patient: Brushing Operator Name: Delivery Method: HAND - Hand Delivered Gin Days: Prior Verbal Notification: Recipient Understood Notice: Yes Recipient Signature: Yes Med Rec Note Co-signed by Attending: Coverage Notice Comment: choice to resume [facility] and [facility], declination signed for [facility] Reviewer: [id number] Kaleb Fisher Notice Issued Date-Time: 11/06/2019 12:00 Notice Type: Patient Choice Letter Notice Delivered To: Patient Relationship to Patient: Brushing Operator Name: Delivery Method: HAND - Hand Delivered Gin Days: Prior Verbal Notification: Recipient Understood Notice: Yes Recipient Signature: Yes Med Rec Note Co-signed by Attending: Coverage Notice Comment: ip rehab at [facility] Reviewer: [id number] Kaleb Fisher Notice Issued Date-Time: 11/06/2019 12:00 Notice Type: IM Discharge Notice Notice Delivered To: Patient Relationship to Patient: Brushing Operator Name: Delivery Method: HAND - Hand Delivered Gin Days: Prior Verbal Notification: Recipient Understood Notice: Yes Recipient Signature: Yes Med Rec Note Co-signed by Attending: Coverage Notice Comment: DC IMM delivered, explained, signed by the patient, and placed in chart. Signed form also left with the patient. Last DP export: 11/06/19 2:38 pm Patient Name: RON ALBERTO Page [phone] at 1804 All edits/amendments must be made on the electronic document DICTATION DATE: 11/06/191802 PUNCH MACHINE OPERATOR: VELMA 11/06/191802 RPT#: [id number] DC DATE:11/06/19 STATUS: DIS IN [facility] [address] [place] [address] END OF REPORT
== END 2019-11-06 17:58 | DRG 193 ==
LOC: D.ER 15:57 → D.M2 18:22
PROVIDERS: Emergency Medicine; Internal Medicine Pulmonary Disease; ADMIT Family Medicine; ATTEND Family Medicine
DX: J18.9 Pneumonia, unspecified organism (principal); J96.01 Acute respiratory failure with hypoxia; I50.33 Acute on chronic diastolic (congestive) heart failure; J44.1 Chronic obstructive pulmonary disease with (acute) exacerbation; J98.11 Atelectasis; F17.213 Nicotine dependence, cigarettes, with withdrawal; J44.0 Chronic obstructive pulmonary disease with (acute) lower respiratory infection; E78.5 Hyperlipidemia, unspecified; M19.90 Unspecified osteoarthritis, unspecified site; J45.909 Unspecified asthma, uncomplicated; I48.0 Paroxysmal atrial fibrillation; G89.29 Other chronic pain; K29.70 Gastritis, unspecified, without bleeding; F41.9 Anxiety disorder, unspecified; K21.9 Gastro-esophageal reflux disease without esophagitis; K42.9 Umbilical hernia without obstruction or gangrene; I08.1 Rheumatic disorders of both mitral and tricuspid valves; I11.0 Hypertensive heart disease with heart failure

== ENCOUNTER 2020-01-18 21:40 | Inpatient (IN) | payer MEDICARE, BC ==
[~2020-01-18] VITALS: Ht 160 cm; Wt 76.7 kg
[~2020-01-18 21:40] MED LIST changes: +ASPIRIN EC325 M1 PO; +IPRAT-ALBUT 0.5-3 ML UPD; +LASIX40 MG PO
--- NOTE | 2020-01-19 00:10 | NUR ---
ADMIT TO PHYSICAL REHAB AND SERVICES OF DR LEI. ARRIVED FROM [facility] VIA [facility] ON STRETCHER ACCOMPANIED BY TO EMS STAFF. AWAKE AND ALERT. O2/2L ON PER NASAL CANNULA. RESPIRATIONS UNLABORED. STATES SHE HAD "SOME FLUID BUILT UP" AND "BACK PAIN" THAT MADE HER GO TO HOSPITAL. ADJUSTED IN BED FOR COMFORT. ORIENTED TO ROOM AND CALL LIGHT USE. ASSISTED TO BATHROOM. HAD LARGE DARK STOOL. STATES SHE USES IRON AND IT MAKES HER STOOLS DARK. SEE ADMISSION ASSESSMENT.
[2020-01-19 02:02] VITALS: BP 142/67
--- NOTE | 2020-01-19 03:31 | NUR ---
RESTING IN BED WITH EYES CLOSED. RESPIRATIONS UNLABORED. NO DISTRESS NOTED.
--- NOTE | 2020-01-19 05:05 | NUR ---
RESTING QUIETLY IN BED. O2/2L ON PER NASAL CANNULA. NO ACUTE DISTRESS NOTED.
[2020-01-19 08:00] VITALS: BP 132/70
[2020-01-19 08:29] LABS: BASOPHILS 0.3 % (0-2); EOSINOPHILS 3.3 % (0-7); HEMATOCRIT 36.4 % (36.0-48.0); HEMOGLOBIN 11.1 g/dL (12-16); IMMATURE GRANULOCYTES 0.3 % (0-5); LYMPHOCYTES 26.2 % (15-50); MCH 29.7 pg (26.0-34.0); MCHC 30.5 g/dL (31.0-37.0); MCV 97.3 fL (80.0-100.0); MONOCYTES 10.9 % (2-11); PLATELET COUNT 266 10x3/uL (130-400); RBC 3.74 10x6/uL (4.00-5.40); RDW 15.1 % (11.5-14.5); WBC 6.7 10x3/uL (4.8-10.8)
[2020-01-19 08:41] LABS: ANION GAP 5.5 mmol/L (8-16); CALCIUM 8.9 mg/dL (8.5-10.1); CARBON DIOXIDE 38.1 mmol/L (21.0-32.0); CREATININE - SERUM 1.6 mg/dL (0.6-1.3); POTASSIUM - SERUM 3.6 mmol/L (3.5-5.1)
--- NOTE | 2020-01-19 09:08 | NUR ---
PATIENT ADMITTED TO REHAB FROM AN OUTSIDE FACILITY. DR. PALMER HERRERA IS PATIENT PCP. DME AT HOME IS A O2 FROM [facility], NEBULIZER, SHOWER CHAIR, WALKER, WHEELCHAIR AND BEDSIDE COMMODE. DISCHARGE PLANS ARE FOR PATIENT TO RETURN HOME. WILL CONTINUE TO FOLLOW WITH PATIENT.
[2020-01-19 13:05] VITALS: Ht 160 cm; Wt 76.7 kg
--- NOTE | 2020-01-19 13:50 | NUR ---
WORKING WITH THERAPY. HAS BEEN UP IN CHAIR IN ROOM WEARING HER BACK BRACE. STATES SHE DOES NOT LIKE WEARING IT. SHE STATES HER BACK STARTED HURTING IN SEPTEMBER OF THIS YEAR FOR NOT REASON. DENIES FALLS OR STRAIN. SHE STATES SHE WAS TOLD TO WEAR HER BRACE WHEN UP BUT SHE USUALLY DOESEN'T.
[2020-01-19 20:45] VITALS: BP 117/59
--- NOTE | 2020-01-19 20:51 | NUR ---
AWAKE AND ALERT. RESTING IN BED WITH RESPIRATIONS UNLABORED WITH O2/2L ON PER NASAL CANNULA. NO DISTRESS NOTED. CALL LIGHT IN REACH.
--- NOTE | 2020-01-19 22:30 | NUR ---
MEDICATED FOR C/O NAUSEA. NO EMESIS NOTED IN EMESIS BAG. WILL MONITOR.
--- NOTE | 2020-01-19 23:30 | NUR ---
NO FURTHER C/O NAUSEA. RESTING QUIETLY.
--- NOTE | 2020-01-20 03:00 | NUR ---
RESTING IN BED WITH EYES CLOSED AND RESPIRATIONS UNALBORED. NO DISTRESS NOTED.
--- NOTE | 2020-01-20 04:54 | NUR ---
MEDICATED FOR PAIN. SEE MAR. NO ACUTE CHANGES IN CONDITION THIS SHIFT. RESTING IN BED WITH NO DISTRESS NOTED.
[2020-01-20 08:10] VITALS: BP 127/62
--- NOTE | 2020-01-20 19:20 | NUR ---
RECEIVED PT LYING IN BED EYES CLOSED RESTING. EASILY AROUSED WITH STIMULI. DENIES ANY NEEDS OR PAIN. NO SIGNS OF ACUTE DISTRESS NOTED. CALL LIGHT AND WATER WITHIN REACH. FALL PRECAUTIONS IN PLACE. CPOC
[2020-01-20 19:23] VITALS: BP 124/48
--- NOTE | 2020-01-20 23:13 | NUR ---
QUIET HOURS. PT LYING IN BED SUPINE WITH RIGHT HIP PROPPED WITH PILLOWS. RR EVEN AND UNLABORED. BRIEF CLEAN AND DRY. CALL LIGHT WITHIN REACH. WILL CONTINUE TO MONITOR
--- NOTE | 2020-01-21 01:50 | NUR ---
PT LYING IN BED EYES CLOSED RESTING. RR EVEN AND UNLABORED. WILL CONTINUE TO MONITOR
--- NOTE | 2020-01-21 04:22 | NUR ---
INCONTINENCE CARE PROVIDED. MED URINE INCONTINENCY. DENIES ANY OTHER NEEDS OR PAIN. CALL LIGHT WITHIN REACH. CPOC
--- NOTE | 2020-01-21 06:00 | NUR ---
ASSISTED PT WITH TRANSFER FROM BED TO W/C MIN ASSIST. NO ACUTE CHANGES IN CONDITION NOTED THIS SHIFT. ULTRAM 50MG ADMININSTERED PER PT REQUEST. CALL LIGHT AND WATER WITHIN REACH. FALL PRECAUTIONS IN PLACE. CPOC
[2020-01-21 08:00] VITALS: BP 111/51
--- NOTE | 2020-01-21 08:00 | NUR ---
SHIFT ASSMT COMPLETED.CL IN REACH.BREAKFAST GIVEN.STATES NAUSEA;CANNOT EAT.BELCHING AND BURPING FREQUENTLY.NO EMESIS.ZOFRAN HAD BEEN GIVEN. ON FLOOR AND ROUNDING.CRITICAL CO2 42.9 RE[PORTED TO .
[2020-01-21 08:08] LABS: ANION GAP 1.6 mmol/L (8-16); CALCIUM 8.6 mg/dL (8.5-10.1); CREATININE - SERUM 1.5 mg/dL (0.6-1.3); POTASSIUM - SERUM 3.5 mmol/L (3.5-5.1)
[2020-01-21 08:15] LABS: CARBON DIOXIDE 42.9 mmol/L (21.0-32.0)
[2020-01-21 08:49] LABS: BASOPHILS 0.5 % (0-2); EOSINOPHILS 2.6 % (0-7); HEMATOCRIT 36.2 % (36.0-48.0); HEMOGLOBIN 11.1 g/dL (12-16); IMMATURE GRANULOCYTES 0.2 % (0-5); LYMPHOCYTES 29.3 % (15-50); MCH 29.7 pg (26.0-34.0); MCHC 30.7 g/dL (31.0-37.0); MCV 96.8 fL (80.0-100.0); MEAN PLATELET VOLUME 12.1 fL (7.4-10.4); MONOCYTES 12.7 % (2-11); NEUTROPHILS 54.7 % (40-80); PLATELET COUNT 243 10x3/uL (130-400); RBC 3.74 10x6/uL (4.00-5.40); RDW 14.9 % (11.5-14.5); WBC 5.8 10x3/uL (4.8-10.8)
--- NOTE | 2020-01-21 13:26 | NUR ---
Nutrition Follow-up: Diet: Low Sodium PO intake: ~42% average x 3 meals yesterday. Spoke with patient at bedside. She is still complaining of food "not going down." She is willing to try Ensure Clear (apple flavor) and/or Ensure Chocolate. She states that she is lactose intolerant and does not have a true milk protein allergy. She states that she gets more phlegm when she eats/drinks dairy. She does not want to have to get a PEG tube and states that she understands that she needs to eat more. Last BM: 01/20/20 x 2. Wt: 169# (01/19/20) Meds noted: miralax, ferrous sulfate, vibramycin, nystatin oral, bumex, linzess. Labs noted: Na 133(L), BUN 25(H), Cr 1.5(H), GFR 36(L) Recommend continue current diet. Will add Ensure Enlive and Ensure Clear for patient to trial. RD following.
--- NOTE | 2020-01-21 15:07 | NUR ---
CARE TEAM MEETING: PATIENT IS NEW TO UNIT AND WILL BE RA AT NEXT MEETING. WILL CONTINUE TO FOLLOW WITH PATIENT.
--- NOTE | 2020-01-21 19:32 | NUR ---
RECEIVED PT LYING IN BED WATCHING TV. ALERT AND ORIENTED X4. CONTINUES ON 2L VIA NC. NO SIGNS OF ACUTE DISTRESS NOTED. DENIES ANY PAIN. NO NEEDS VOICED. CALL LIGHT WITHIN REACH. FALL PRECAUTIONS IN PLACE. CPOC
[2020-01-21 19:52] VITALS: BP 103/53
--- NOTE | 2020-01-21 23:07 | NUR ---
PT LYING IN BED WATCHING TV. DENIES ANY NEEDS OR PAIN. NO SIGNS OF ACUTE DISTRESS NOTED. CALL LIGHT AND WATER WITHIN REACH. FALL PRECAUTIONS IN PLACE. WILL CONTINUE TO MONITOR
--- NOTE | 2020-01-22 03:25 | NUR ---
PT LYING IN BED EYES CLOSED RESTING. RR EVEN AND UNLABORED. BRIEF CLEAN AND DRY. CALL LIGHT WITHIN REACH. WILL CONTINUE TO MONITOR
--- NOTE | 2020-01-22 03:55 | NUR ---
INCONTINENCE CARE PROVIDED. MED URINE AND SMALL BOWEL INCONTINENCE. CHUX CHANGED. PERICARE PROVIDED. BUTTPASTE APPLIED TO BUTTOCKS AND PERIAREA. NO OTHER NEEDS VOICED. CALL LIGHT AND WATER WITHIN REACH. FALL PRECAUTIONS IN PLACE. CPOC
--- NOTE | 2020-01-22 06:07 | NUR ---
PT LYING IN BED EYES CLOSED RESTING. EASILY AROUSED. EARLY AM MEDS ADMININSTERED. DENIES ANY OTHER NEEDS. C/O MILD DISCOMFORT DOES NOT WANT ANYTHING FOR PAIN. NO ACUTE CHANGES IN CONDITION NOTED THIS SHIFT. CALL LIGHT AND WATER WITHIN REACH. FALL PRECAUTIONS IN PLACE. CPOC
[2020-01-22 08:10] VITALS: BP 108/57
[2020-01-22 19:34] VITALS: BP 118/50
--- NOTE | 2020-01-22 19:53 | NUR ---
AWAKE AND ALERT. RESTING IN BED WITH RESPIRATIONS UNLABORED.NO DISTRESS NOTED. CALL LIGHT IN REACH.
--- NOTE | 2020-01-23 01:50 | NUR ---
SLEEPING WITH NO RESPIRATIONS UNLABORED. NO DISTRESS NOTED.
--- NOTE | 2020-01-23 03:52 | NUR ---
INCONTINENT OF URINE. INCONTINENCE CARE GIVEN AND TURNED AND REPOSITIONED FOR COMFORT. NO ACUTE DISTRESS NOTED.
--- NOTE | 2020-01-23 05:17 | NUR ---
QUIET HOURS. NO ACUTE CHANGES IN CONDITION THIS SHIFT. RESTING IN BED WITH NO DISTRESS NOTED.
[2020-01-23 08:00] VITALS: BP 100/57
[2020-01-23 08:10] LABS: ALBUMIN 2.3 g/dL (3.4-5.0); ANION GAP 5.8 mmol/L (8-16); BILIRUBIN - TOTAL 0.72 mg/dL (0.2-1.3); CALCIUM 8.5 mg/dL (8.5-10.1); CARBON DIOXIDE 39.3 mmol/L (21.0-32.0); CREATININE - SERUM 1.5 mg/dL (0.6-1.3); POTASSIUM - SERUM 3.1 mmol/L (3.5-5.1); PROTEIN - SERUM 5.1 g/dL (6.4-8.2)
[2020-01-23 08:15] LABS: BASOPHILS 0.3 % (0-2); EOSINOPHILS 2.5 % (0-7); HEMATOCRIT 35.5 % (36.0-48.0); IMMATURE GRANULOCYTES 0.2 % (0-5); LYMPHOCYTES 35.2 % (15-50); MCV 96.7 fL (80.0-100.0); MEAN PLATELET VOLUME 12.6 fL (7.4-10.4); MONOCYTES 11.5 % (2-11); NEUTROPHILS 50.3 % (40-80); PLATELET COUNT 225 10x3/uL (130-400); RBC 3.67 10x6/uL (4.00-5.40); RDW 14.6 % (11.5-14.5)
--- NOTE | 2020-01-23 10:30 | NUR ---
HAS BEEN UP USING BATHROOM TODAY. NURSE STRESSED TO PT IMPORTANCE NOT ALLOWING HER SKIN TO BE WET DUE TO INCONTINENCE. SHE AGREED TO GET UP FOR BATHROOM NEEDS.
[2020-01-23 19:52] VITALS: BP 113/59
--- NOTE | 2020-01-23 19:52 | NUR ---
RECEIVED PT LYING IN BED WATCHING TV. A/O X4. C/O INDIGESTION AND NAUSEA, NO VOMITTING NOTED. REQUESTS SALTINE CRACKERS. CONTINUES ON 2L VIA NC. INCONTINENCE CARE PROVIDED. MED URINE INCONTINENCY. LEFT LEG DRESSING INTACT CHANGED TODAY, Q3D CHANGE. VS STABLE. ASSESSMENT COMPLETE. CALL LIGHT AND WATER WITHIN REACH. FALL PRECAUTIONS IN PLACE. CPOC
--- NOTE | 2020-01-24 00:18 | NUR ---
QUIET HOURS. PT LYING IN BED SUPINE EYES CLOSED RESTING QUIETLY. HOB ELEVATED. RR EVEN AND UNLABORED. CALL LIGHT WITHIN REACH. WILL CONTINUE TO MONITOR
--- NOTE | 2020-01-24 03:04 | NUR ---
INCONTINENCE CARE PROVIDED. MODERATE URINE INCONTINENCE. BUTTPASTE APPLIED TO BUTTOCKS AND GROIN FOR REDDNESS. NO OTHER NEEDS VOICED. CALL LIGHT WITHIN REACH. WILL CONTINUE TO MONITOR
--- NOTE | 2020-01-24 05:09 | NUR ---
PT LYING IN BED WATCHING TV. INCONTINENCE CARE PROVIDED. MODERATE URINE INCONTINENCY. BUTTPASTE APPLIED TO GROIN AND BUTTOCKS. DENIES ANY OTHER NEEDS. NO ACUTE CHANGES IN CONDITION NOTED THIS SHIFT. CALL LIGHT AND WATER WITHIN REACH. FALL PRECAUTIONS IN PLACE. CPOC
[2020-01-24 05:55] LABS: ANION GAP 3.4 mmol/L (8-16); CALCIUM 8.9 mg/dL (8.5-10.1); CREATININE - SERUM 1.5 mg/dL (0.6-1.3); POTASSIUM - SERUM 3.4 mmol/L (3.5-5.1)
[2020-01-24 07:00] VITALS: BP 109/60
--- NOTE | 2020-01-24 08:00 | NUR ---
SHIFT ASSMT COMPLETED
--- NOTE | 2020-01-24 16:00 | NUR ---
VISTED WITH FAMILY ON PATIO.NOW RESTING QUIETLY IN BED.
[2020-01-24 20:22] VITALS: BP 111/65
--- NOTE | 2020-01-24 20:22 | NUR ---
RECEIVED PT LYING IN BED WATCHING TV. ALERT AND ORIENTED X4. C/O BEING NAUSEATED ALL THE TIME. NO EMESIS NOTED. CONTINUOUS BELCHING. VS STABLE. SHIFT ASSESSMENT COMPLETE. DENIES ANY PAIN. NO SIGNS OF ACUTE DISTRESS NOTED. CALL LIGHT AND WATER WITHIN REACH. FALL PRECAUTIONS IN PLACE. CPOC
--- NOTE | 2020-01-24 23:02 | NUR ---
PT LYING IN BED WATCHING TV. CLEAN AND DRY. DENIES ANY PAIN. STILL C/O NAUSEA. NO EMESIS NOTED. SALTINE CRACKERS AND L[place]ON [place] PROVIDED. CALL LIGHT WITHIN REACH. WILL CONTINUE TO MONITOR
--- NOTE | 2020-01-25 01:44 | NUR ---
PT LYING IN BED EYES CLOSED RESTING QUIETLY. RR EVEN AND UNLABORED. CONTINUES ON 2L VIA NC. CALL LIGHT WITHIN REACH. FALL PRECAUTIONS IN PLACE. WILL CONTINUE TO MONITOR
--- NOTE | 2020-01-25 04:26 | NUR ---
PT SITTING UP IN BED. RESPIRATORY AT BEDSIDE. CALL LIGHT WITHIN REACH. DENIES ANY NEEDS. CPOC
[2020-01-25 08:00] VITALS: BP 101/57
--- NOTE | 2020-01-25 08:00 | NUR ---
UP TO BATHROOM.REQUEST BACK TO BED.BREAKFAST GIVEN.CL IN REACH.
--- NOTE | 2020-01-25 19:15 | NUR ---
RECEIVED PT LYING IN BED WATCHING TV. ALERT AND ORIENTED X3. DENIES ANY NEEDS OR PAIN. CONTINUES ON 2L VIA NC. NO SIGNS OF ACUTE DISTRESS NOTED. NO C/O NAUSEA. CALL LIGHT AND WATER WITHIN REACH. FALL PRECAUTIONS IN PLACE. CPOC
[2020-01-25 22:00] VITALS: BP 107/53
--- NOTE | 2020-01-25 22:00 | NUR ---
PARTIAL BED BATH DONE. COMPLETE BED LINEN CHANGE D/T LARGE URINE INCONTIENCE. BUTTPASTE APPLIED TO BUTTOCKS.
--- NOTE | 2020-01-26 01:05 | NUR ---
PT LYING IN BED EYES CLOSED RESTING. RR EVEN AND UNLABORED. CALL LIGHT WITHIN REACH. FALL PRECAUTIONS IN PLACE. CPOC
--- NOTE | 2020-01-26 03:26 | NUR ---
PT LYING IN BED EYES CLOSED RESTING. RR EVEN AND UNLABORED. CALL LIGHT AND WATER WITHIN REACH. FALL PRECAUTIONS IN PLACE. CPOC
--- NOTE | 2020-01-26 06:25 | NUR ---
INCONTINENCE CARE PROVIDED. MODERATE URINE INCONTINENCY. DENIES ANY OTHER NEEDS. CALL LIGHT AND WATER WITHIN REACH. FALL PRECAUTIONS IN PLACE. CPOC
[2020-01-26 06:38] LABS: ANION GAP 5.8 mmol/L (8-16); CALCIUM 8.6 mg/dL (8.5-10.1); CARBON DIOXIDE 39.3 mmol/L (21.0-32.0); CREATININE - SERUM 1.6 mg/dL (0.6-1.3); POTASSIUM - SERUM 4.1 mmol/L (3.5-5.1)
[2020-01-26 07:02] LABS: BASOPHILS 0.6 % (0-2); EOSINOPHILS 1.5 % (0-7); HEMATOCRIT 35.3 % (36.0-48.0); HEMOGLOBIN 10.7 g/dL (12-16); IMMATURE GRANULOCYTES 0.3 % (0-5); LYMPHOCYTES 30.5 % (15-50); MCH 29.4 pg (26.0-34.0); MCHC 30.3 g/dL (31.0-37.0); MEAN PLATELET VOLUME 11.9 fL (7.4-10.4); MONOCYTES 10.2 % (2-11); NEUTROPHILS 56.9 % (40-80); RBC 3.64 10x6/uL (4.00-5.40); RDW 14.5 % (11.5-14.5); WBC 6.8 10x3/uL (4.8-10.8)
[2020-01-26 07:05] LABS: PLATELET COUNT 147 10x3/uL (130-400)
[2020-01-26 08:00] VITALS: BP 112/74
--- NOTE | 2020-01-26 08:41 | RHP ---
PATIENT: RON ALBERTO MEDICAL RECORD: [id number] ACCOUNT: [id number] [id number] ADMISSION DATE: 01/18/20 REHABILITATION HISTORY AND PHYSICAL EXAMINATION POST ADMISSION PHYSICIAN EXAMINATION ADMITTING DIAGNOSIS: Congestive heart failure. HISTORY OF PRESENT ILLNESS: The patient is a 74-year-old obese female that presented to ED with generalized weakness, bilateral lower extremity edema and short of breath. She has been having some white-colored sputum and just not been doing well. The patient has been having some increased swelling of her legs and beginning of cellulitis. She had been placed on a Bumex drip and this improved somewhat. The patient has been followed closely during her acute hospital stay. She has been on a Bumex drip to resolve her fluid overload and followed by PT and is progressing slowly. She is currently on supplemental O2 24 hours a day. She is receiving updraft treatment. She is morbidly obese. She has bilateral lower extremity edema. She has been on a Bumex drip. She has had some constipation on and off. The patient has been monitored for any types of possible cellulitis to her lower extremities. She is on anticoagulation therapy. She is having blood sugar variability. She is deconditioned, impaired mobility. She has got self-care deficits, gait disturbance. She is a fall risk. These are all barriers to her discharge home. She lives at home alone, was independent with ADLs and mobility prior to this. Currently she is set up for mod assist for ADLs and mod assist for mobility. She would like to discharge home at her prior level of functioning. COMORBIDITIES: Include weakness, [id number] diastolic heart failure, lower extremity edema, cellulitis, chronic anticoagulation, paroxysmal atrial fib, COPD, anxiety, constipation, morbid obesity. PAST MEDICAL HISTORY: Significant for a TIA in the past. She got a history of COPD, constipation, arthritis, tobacco use, anxiety, asthma, gastritis, irritable bowel syndrome, osteoarthritis, recurrent UTIs and morbid obesity. PAST SURGICAL HISTORY: Includes gallbladder surgery, appendectomy, hysterectomy, and left hand surgery. ALLERGIES: FOSAMAX, CIPRO, LISINOPRIL, ROCEPHIN AND CODEINE. CURRENT MEDICATIONS: Include a multivitamin daily, ferrous sulfate 325 daily, doxycycline 100 mg b.i.d., Bumex 1 mg b.i.d., amiodarone 200 mg daily, spironolactone 50 mg daily, polyethylene glycol 17 grams once daily, Flonase nasal spray, Daliresp 250 mcg daily, Neosporin to apply topically b.i.d., budesonide 0.5 mg b.i.d., Protonix 40 mg daily, Linzess 72 mcg daily, melatonin 6 mg at bedtime, Ventolin updrafts, she is on Dulcolax 10 mg as needed, Tessalon Perles 200 mg t.i.d. p.r.n., Eliquis 2.5 mg b.i.d., tramadol 50 mg q.6 hours, Zofran 4 mg q.8 hours, nystatin cream to apply topically b.i.d., Singulair 10 mg at bedtime, she is on metoprolol 50 mg b.i.d., she is on calcium carbonate 500 mg b.i.d. with meals, Colace 100 mg b.i.d., Atrovent nasal spray to apply 2 sprays b.i.d. HABITS: Does have a history of tobacco use. FAMILY HISTORY: Noncontributory. HISTORY AND PHYSICAL [id number] RON ALBERTO SOCIAL HISTORY: The patient hopes to return back home and get back to her prior level of functioning. REVIEW OF SYSTEMS: GENERAL: Does complain of weakness and fatigue. HEENT: Denies cold, cough, or congestion. CARDIOVASCULAR: Denies any chest pain. PHYSICAL EXAMINATION: VITAL SIGNS: Stable, afebrile. GENERAL: A somewhat obese female, in no distress upon exam. HEENT: Normocephalic and atraumatic. Mucosa moist. NECK: Supple. No lymphadenopathy. LUNGS: Clear in upper brnuo. No wheezing or rales. HEART: Regular rate and rhythm. No murmurs, rubs or gallops. ABDOMEN: Soft, benign, and nondistended. Positive bowel sounds times 4. EXTREMITIES: Does have some peripheral edema and a small amount of redness. NEUROLOGIC: She has got decreased muscular strength in her deltoids and also her proximal muscles of her thighs. LABORATORY DATA: White count is 6.7, H&H of 11 and 36, and platelet count was noted to be 266. Her sodium and electrolytes are pending at this time. ASSESSMENT: This is a 74-year-old female patient admitted to rehab with a working diagnosis of debility secondary to congestive heart failure. The patient has potential to make improvement. We instituted the following multidisciplinary therapies to include but not limited to physical, occupational, respiratory, speech, nutritional services, prosthetics and orthotics. Given her complex medical condition and risks for more complications, rehabilitation services cannot be provided at a low level of care such as skilled nurse facility. PLAN: 1. Admit to [facility] for intensive inpatient therapy to include the following disciplines: A. Physical therapy to improve gait, all transfer skills and bed mobility to a modified independent level. B. Occupational therapy to improve activities of daily living. C. Case management to help with discharge planning and placement options. D. Nutrition to assist with nutritional needs. E. Rehabilitation nursing to assist in monitoring the patient's underlying medical conditions and to assist with any type of bowel or bladder management. 2. The patient's current medication and medical care will be continued. 3. Placed on standard fall precautions. 4. The patient's estimated length of stay is approximately 7-10 days. 5. We will discuss the patient during care team staff meeting this week. I am going to see again in the a.m. TRANSINT:[id number] Voice Confirmation ID: [id number] DOCUMENT ID: [id number] DESIREE notes whether there has been none or any medical/functional change since admission: - No change since preadmission screen. HISTORY AND PHYSICAL [id number] RON ALBERTO attests patient continues to be appropriate for IRF: - Continues to be appropriate. BILLY LEI MD at 0841 CC: [id number] DICTATION DATE: 01/19/20 0845 ESOL TEACHER: 01/19/20 1113 ADM IN [facility] [address] [place] [address]
--- NOTE | 2020-01-26 19:20 | NUR ---
RECEIVED PT LYING IN BED WATCHING TV. ALERT AND ORIENTED X4. DENIES ANY NEEDS OR PAIN. NO SIGNS OF ACUTE DISTRESS NOTED. CONTINUES ON 2L VIA NC. CALL LIGHT AND WATER WITHIN REACH. FALL PRECAUTIONS IN PLACE. CPOC
[2020-01-26 19:25] VITALS: BP 112/46
--- NOTE | 2020-01-27 03:49 | NUR ---
PT LYING IN BED EYES CLOSED RESTING. RR EVEN AND UNLABORED. CALL LIGHT WITHIN REACH. CPOC
--- NOTE | 2020-01-27 05:45 | NUR ---
INCONTINENCE CARE PROVIDED. MODERATE URINE INCONTINENCY. BUTTPASTE APPLIED TO BUTTOCKS AND GROIN FOR REDDNESS. EDUCATED PT ON TURNING Q2H TO PREVENT SKIN BREAKDOWN. PT VERBALIZED UNDERSTANDING. NO ACUTE CHANGES IN CONDITION NOTED THIS SHIFT. CALL LIGHT AND WATER WITHIN REACH. WILL CONTINUE TO MONITOR
[2020-01-27 08:01] VITALS: BP 100/56
--- NOTE | 2020-01-27 11:20 | NUR ---
Nutrition Follow-up: Diet: Regular Low Sodium + Ensure Enlive TID + Ensure Clear TID PO intake: ~20% average x last 3 meals recorded (01/25/20). Patient states that her appetite is a little better. States that she is trying to eat high protein foods as much as possible. She does not like the Ensure Clear Apple, states that she is not drinking it. States that her friend brought her some Ensure Clear Brenner flavor and that she has been drinking them some. She is drinking and tolerating the Ensure Enlive now. She request chocolate and strawberry flavor to be alternated. Last BM: 01/26/20. Wt: 169# Meds noted: k-dur, miralax, bumex, linzess Labs noted: BUN 38(H), Cr 1.6(H), GFR 33(L), Glu 150(H) Recommend continue current diet. Will update oral nutrition supplements per patient request. Encouraged PO intake. RD following.
--- NOTE | 2020-01-27 12:40 | NUR ---
SITTING UP IN BED EATING LUNCH. C/O SHE HAS TROUBLE EATING AND "IT WONT GO DOWN" AT TIMES. SHE WAS ABLE TO EAT WHOLE, ANDREA SIZED CANDY BAR AND LARGE HANDFULL OF OTHER CHOCOLATE CANDIES IN ONE SITTING WITH NO PROBLEMS OF FOOD "GOING DOWN". SHE C/O PAIN TO LOW BACK AND DOES NOT LIKE WEARING BACK BRACE. CALL LIGHT IN REACH
[2020-01-27 19:37] VITALS: BP 129/85
--- NOTE | 2020-01-27 19:47 | NUR ---
RECIEVED UP IN BED WITH EYES OPEN AND TV ON. HOB ELEVATED. O2@ 2 LITERS PER N/C. HAS O2 SAT MONITOR ON HER FINGER AND IS WATCHING HER HR. HR 125. REFUSES TO WEAR BACK BRACE. REQUEST GAS X AT HS. DENIES ANY OTHER NEEDS AT THIS TIME.
[2020-01-28 08:00] VITALS: BP 104/51
--- NOTE | 2020-01-28 08:00 | NUR ---
SHIFT ASSMT COMPLETED.
[2020-01-28 12:53] LABS: BASOPHILS 0.3 % (0-2); EOSINOPHILS 1.6 % (0-7); HEMATOCRIT 36.8 % (36.0-48.0); HEMOGLOBIN 11.1 g/dL (12-16); IMMATURE GRANULOCYTES 0.1 % (0-5); LYMPHOCYTES 19.1 % (15-50); MCH 29.9 pg (26.0-34.0); MCHC 30.2 g/dL (31.0-37.0); MEAN PLATELET VOLUME 12.8 fL (7.4-10.4); MONOCYTES 10.7 % (2-11); NEUTROPHILS 68.2 % (40-80); RBC 3.71 10x6/uL (4.00-5.40); RDW 14.9 % (11.5-14.5); WBC 7.5 10x3/uL (4.8-10.8)
[2020-01-28 13:02] LABS: MCV 99.2 fL (80.0-100.0); PLATELET COUNT 189 10x3/uL (130-400)
[2020-01-28 13:03] LABS: CALC OSMOLALITY 266 mosm/kg (275-300); CALCIUM 9.6 mg/dL (8.5-10.1); CHLORIDE - SERUM 90 mmol/L (98-107); CREATININE - SERUM 1.9 mg/dL (0.6-1.3); GLUCOSE 116 mg/dL (74-106); POTASSIUM - SERUM 4.3 mmol/L (3.5-5.1); SODIUM 128 mmol/L (136-145); UREA NITROGEN 39 mg/dL (7-18); eGFR NON AFRICAN AMERICAN 27 mL/min (90-120)
[2020-01-28 13:19] LABS: CARBON DIOXIDE 43.6 mmol/L (21.0-32.0)
--- NOTE | 2020-01-28 13:58 | NUR ---
CARE TEAM METING: PATIENT IS DOING WELL IN THERAPY. HER TENATIVE DC DATE IS 02/02/20. WILL CONTINUE TO FOLLOW WITH PATIENT.
[2020-01-28 19:08] VITALS: BP 94/45
--- NOTE | 2020-01-28 19:18 | NUR ---
RECEIVED PT LYING IN BED WATCHING TV. HOB ELEVATED. ALERT AND ORIENTED X4. DENIES ANY NEEDS OR PAIN. NO ACUTE DISTRESS NOTED. CONTINUES ON 2L VIA NC. CALL LIGHT AND WATER WITHIN REACH. FALL PRECAUTIONS IN PLACE. CPOC
--- NOTE | 2020-01-29 00:51 | NUR ---
PT LYING IN BED EYES CLOSED RESTING QUIETLY. HOB ELEVATED. CALL LIGHT AND WATER WITHIN REACH. FALL PRECAUTIONS IN PLACE. CPOC
--- NOTE | 2020-01-29 03:07 | NUR ---
PT LYING IN BED EYES CLOSED RESTING. RR EVEN AND UNLABORED. CALL LIGHT WITHIN REACH. WILL CONTINUE TO MONITOR
--- NOTE | 2020-01-29 05:22 | NUR ---
INCONTINENCE CARE PROVIDED. MODERATE URINE INCONTIENCE. BUTTPASTE APPLIED TO BUTTOCKS. NO OTHER NEEDS VOICED. CALL LIGHT WITHIN REACH. WILL CONTINUE TO MONITOR
[2020-01-29 07:58] VITALS: BP 97/50
--- NOTE | 2020-01-29 08:00 | NUR ---
SHIFT ASSMT COMPLETED.
--- NOTE | 2020-01-29 19:23 | NUR ---
RECIEVED UP IN BED WITH HOB ELEVATED AND O22 2 LITERS PER N/C. ALERT AND ORIENTED X4. UP WITH ASSIST. CONT TO REFUSE BACK BRACE. DEIS ANY NEEDS AT THIS TIME.
[2020-01-29 19:39] VITALS: BP 131/62
--- NOTE | 2020-01-30 04:22 | NUR ---
INCONTINENT OF BLADDER. PERICARE PERICARE PROVIDED AND BRIEF CHANGED.
[2020-01-30 07:50] VITALS: BP 94/76
--- NOTE | 2020-01-30 08:15 | NUR ---
SITS UP IN BED FOR BREAKFAST. WHEN NURSE WALKS IN ROOM, SHE IMMEDIATELY STARTS BURPING AND ASKING FOR MEDS. CALL LIGHT IN REACH
[2020-01-30 09:34] LABS: BASOPHILS 0.3 % (0-2); EOSINOPHILS 2.4 % (0-7); HEMOGLOBIN 11.1 g/dL (12-16); IMMATURE GRANULOCYTES 0.1 % (0-5); LYMPHOCYTES 25.5 % (15-50); MCH 29.7 pg (26.0-34.0); MCV 98.9 fL (80.0-100.0); MONOCYTES 7.6 % (2-11); NEUTROPHILS 64.1 % (40-80); PLATELET COUNT 190 10x3/uL (130-400); RBC 3.74 10x6/uL (4.00-5.40); RDW 15.1 % (11.5-14.5); WBC 6.8 10x3/uL (4.8-10.8)
[2020-01-30 10:22] LABS: ANION GAP 2.6 mmol/L (8-16); CALCIUM 9.3 mg/dL (8.5-10.1); CREATININE - SERUM 1.9 mg/dL (0.6-1.3); POTASSIUM - SERUM 4.6 mmol/L (3.5-5.1)
--- NOTE | 2020-01-30 16:32 | NUR ---
GETS UP TO TO GO TO BATHROOM INSTEAD OF BEING INCONTINENT IN BED. HER APPETITE IS STILL POOR TO MORRIS. SHE C/O PAIN TO BACK THAT IS WORSE ROLON SHE IS UP. SHE WILL BEND OVER AT WAIST TO FIND COMFORTABLE POSITION. SHE IS REFUSING TO WEAR HER BACK BRACE. CALL LIGHT IN REACH
[2020-01-30 19:47] VITALS: BP 138/53
--- NOTE | 2020-01-30 19:49 | NUR ---
AWAKE AND ALERT. RESTING IN BED WITH RESPIRATIONS UNLABORED. NO DISTRESS NOTED. SMALL ONE INCH AREA ON BACK HAS OPEN SKIN/ABRASION FROM POSSIBLE FRICTION. AREA CLEANED AND CLEAR TEGADERM BANDAGE APPLIED. CALL LIGHT IN REACH.
--- NOTE | 2020-01-31 02:27 | NUR ---
SLEEPING WITH RESPIRATIONS UNLABORED. NO DISTRESS NOTED. CALL LIGHT IN REACH.
--- NOTE | 2020-01-31 05:44 | NUR ---
QUIET HOURS. NO ACUTE CHANGES IN CONDITION THIS SHIFT. O2/2L ON PER NASAL CANNULA. RESTING IN BED WITH NO DISTRESS NOTED.
--- NOTE | 2020-01-31 08:00 | NUR ---
AWAKE, LAYING IN BED. WEARING OXYGEN 2LNC. C/O PAIN TO LOW BACK. STILL REFUSING TO WEAR BACK BRACE. CAN DEGOSHIATE WITH WC IN ROOM. BED IN LOWEST POSITON, SIDE RAILS UP X2, BED IN LOWEST POSITION.
[2020-01-31 11:26] VITALS: BP 105/53
--- NOTE | 2020-01-31 19:32 | NUR ---
AWAKE BUT DOZING ON AND OFF IN BED. RESPIRATIONS UNLABORED. O2/2L ON PER NASAL CANNULA. NO ACUTE DISTRESS NOTED. CALL LIGHT IN REACH.
[2020-01-31 20:00] VITALS: BP 102/54
--- NOTE | 2020-02-01 00:08 | NUR ---
MEDICATED FOR PAIN. SEE MAR. RESPIRATIONS UNLABORED. NO DISTRESS NOTED.
--- NOTE | 2020-02-01 05:03 | NUR ---
ASSISTED TO BATHROOM AND BACK TO BED. NO ACUTE CHANGES IN CONDITION THIS SHIFT. CALL LIGHT IN REACH.
[2020-02-01 07:30] VITALS: BP 104/54
--- NOTE | 2020-02-01 16:50 | NUR ---
LAYING IN BED WATCHING TV. USES CALL LIGHT OFTEN TO ASK FOR THINGS TO BE DONE FOR HER THAT SHE CAN DO FOR HERSELF-LIKE STRAIGHTEN PILLOWS AND PULL COVER UP HER LEGS. SHE HAS BEEN CONTINENT ALL DAY SO FAR. STILL WEARING OXYGEN AND USES HER OWN PULSE OX OFTEN. BED IN LOWEST POSITION, SIDE RAILS UP X2, CALL LIGHT IN REACH
[2020-02-01 19:39] VITALS: BP 132/57
--- NOTE | 2020-02-01 19:57 | NUR ---
AWAKE AND ALERT. ASSISTED TO BATHROOM AND BACK TO BED. RESPIRATIONS UNLABORED . NO ACUTE DISTRESS NOTED
--- NOTE | 2020-02-01 23:35 | NUR ---
DULCOLAX SUPPOSITORY GIVEN MT FOR C/O HARD BM UNABLE TO PASS. WILL MONITOR.
--- NOTE | 2020-02-02 01:08 | NUR ---
DRANK SOME SPRITE AND PRUNE JUICE. SITTING ON TOILET NOW TRYING TO HAVE A BM. WILL MONITOR FOR RESULTS.
--- NOTE | 2020-02-02 01:25 | NUR ---
HAD A MEDIUM SIZE FORMED BM. ASSISTED BACK TO BED.
--- NOTE | 2020-02-02 05:27 | NUR ---
RESTING IN BED. HAS ONLY SLEPT IN VERY SHORT INTERVALS TONGHT. O2/2L ON PER NASAL CANNULA. CALL LIGHT IN REACH.
[2020-02-02 07:16] LABS: BASOPHILS 0.3 % (0-2); EOSINOPHILS 2.1 % (0-7); HEMATOCRIT 33.5 % (36.0-48.0); HEMOGLOBIN 10.3 g/dL (12-16); IMMATURE GRANULOCYTES 0.1 % (0-5); LYMPHOCYTES 27.2 % (15-50); MCH 30.4 pg (26.0-34.0); MCHC 30.7 g/dL (31.0-37.0); MCV 98.8 fL (80.0-100.0); MEAN PLATELET VOLUME 12.6 fL (7.4-10.4); MONOCYTES 10.1 % (2-11); NEUTROPHILS 60.2 % (40-80); PLATELET COUNT 173 10x3/uL (130-400); RBC 3.39 10x6/uL (4.00-5.40); RDW 15.2 % (11.5-14.5)
[2020-02-02 07:29] LABS: ANION GAP 7.4 mmol/L (8-16); CALCIUM 9.1 mg/dL (8.5-10.1); CARBON DIOXIDE 34.9 mmol/L (21.0-32.0); CREATININE - SERUM 1.7 mg/dL (0.6-1.3); POTASSIUM - SERUM 4.3 mmol/L (3.5-5.1)
[2020-02-02 08:00] VITALS: BP 96/52
[2020-02-02] MEDS ORDERED: AMIODARONE HCL200 MG PO (08:52)
[2020-02-02] MEDS ORDERED: ALDACTONE25 MG PO (08:52)
[2020-02-02] MEDS ORDERED: METOPROLOL TART50 MG PO (08:52)
[2020-02-02] MEDS ORDERED: OSCAL D TABLET PO (08:53)
[2020-02-02] MEDS ORDERED: Bumex PO (08:53)
--- NOTE | 2020-02-02 11:24 | NUR ---
Nutrition Follow-up: Diet: Low Sodium + Ensure TID PO intake: ~65% average x last 6 meals. She reports that her appetite is improving. States that she has been able to "get food down and keep it down better." She is drinking the Ensure and states that she is drinking at least 2-3 bottles per day. Last BM: 02/02/20. Wt: 169# (01/19/20), no new weight Meds noted: K-dur, miralax, bumex, linzess Labs noted: BUN 33(H), Cr 1.7(H), GFR 31(L) Recommend continue current diet and oral nutrition supplements. Encouraged PO intake. RD following.
[2020-02-02 19:26] VITALS: BP 150/79
--- NOTE | 2020-02-02 20:00 | NUR ---
AWAKE AND ALERT. RESTING IN BED WITH RESPIRATIONS UNLABORED. O2/2L ON PER NASAL CANNULA. NO ACUTE DISTRESS NOTED. CALL LIGHT IN REACH.
--- NOTE | 2020-02-03 00:55 | NUR ---
MEDICATED FOR PAIN. SEE MAR. RESPIRAITONS UNLABORED. O2/2L ON PER NASAL CANNULA. CALL LIGHT IN REACH
--- NOTE | 2020-02-03 03:39 | NUR ---
RESTING IN BED WITH EYES CLOSED AND RESPIRAITONS UNLABORED. NO DISTRESS NOTED.
--- NOTE | 2020-02-03 05:05 | NUR ---
QUIET HOURS. NO ACUTE CHANGES IN CONDITION THIS SHIFT. RESTING IN BED WITH NO DISTRESS NOTED.
[2020-02-03 08:00] VITALS: BP 126/49
--- NOTE | 2020-02-03 08:00 | NUR ---
SHIFT ASSMT COMPLETED.PLAN TO DC HOME TODAY.
--- NOTE | 2020-02-03 09:44 | NUR ---
PATIENT DISCHARGING HOME TODAY. 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 NO NEW DME NEEDED AT THIS TIME. IMM SERVED AND EXPLAINED, ONE GIVEN TO PATIENT AND ONE FILED IN CHART.DR. PALMER HERRERA/JOSE CHASE 10-6-20 @ 9:15. DC INSTRUCTIONS FAXED TO PCP, HOME HEALTH AND REVIEWED WITH PATIENT PER PRIMARY NURSE AND MYSELF.
--- NOTE | 2020-02-03 12:00 | NUR ---
REVIEWED MEDS AND INSTRUCTIONS.CARE 4 TO FOLLOW AND SET UP THERAPIES.DC'D IN STABLE CONDITION.MEDS CALLED TO [facility].
== END 2020-02-03 12:25 | disposition home health service (06) | DRG 947 ==
LOC: D.REHAB 21:40
PROVIDERS: ADMIT Emergency Medicine; ATTEND Emergency Medicine
DX: R53.81 Other malaise (principal); I50.33 Acute on chronic diastolic (congestive) heart failure; L03.116 Cellulitis of left lower limb; L03.115 Cellulitis of right lower limb; J98.11 Atelectasis; R53.1 Weakness; R60.0 Localized edema; Z79.01 Long term (current) use of anticoagulants; I48.0 Paroxysmal atrial fibrillation; J44.9 Chronic obstructive pulmonary disease, unspecified; E66.01 Morbid (severe) obesity due to excess calories; F41.9 Anxiety disorder, unspecified; K59.00 Constipation, unspecified; M48.54XD Collapsed vertebra, not elsewhere classified, thoracic region, subsequent encounter for fracture with routine healing; I27.20 Pulmonary hypertension, unspecified; N18.3 Chronic kidney disease, stage 3 (moderate); Z68.30 Body mass index [BMI] 30.0-30.9, adult